=== PATIENT | female | born 1970 | race Caucasian/White ===

== ENCOUNTER 2020-08-17 11:04 | Outpatient (REF) | payer MEDICAID, SELFPAY ==
[2020-08-17 11:25] LABS: COVID-19 Test Negative (Negative)
== END 2020-08-17 11:05 | disposition home or self-care (01) ==
LOC: HO.LAB 11:04
PROVIDERS: Visit Provider Internal Medicine
DX: Z20.828 Contact with and (suspected) exposure to other viral communicable diseases (principal)
CPT/HCPCS: 87635

== ENCOUNTER 2021-02-09 08:01 | Outpatient (REF) | payer MEDICAID, SELFPAY | END 2021-02-09 08:02 | disposition home or self-care (01) | LOC: HO.HOSX 08:01 | PROVIDERS: Visit Provider Physician Assistant | DX: M75.42 Impingement syndrome of left shoulder (principal); M25.512 Pain in left shoulder; D50.9 Iron deficiency anemia, unspecified; E55.9 Vitamin D deficiency, unspecified; J45.909 Unspecified asthma, uncomplicated; F43.10 Post-traumatic stress disorder, unspecified; F31.9 Bipolar disorder, unspecified | CPT/HCPCS: 20610; 99202; J1040 ==

== ENCOUNTER 2021-03-17 08:18 | Outpatient (REF) | payer MEDICAID, SELFPAY ==
--- NOTE | ~2021-03-17 | US_ITS ---
EXAMINATION: US DIAGNOSTIC ULTRASOUND BREAST, LEFT CLINICAL INFORMATION: Left breast pain. COMPARISON: Mammography of same day as well as June 02, 2018. TECHNIQUE: Ultrasound of the breast is performed with real-time de los santos scale imaging and color Doppler. FINDINGS: Targeted ultrasound evaluation does not demonstrate any evidence of abnormal cystic or solid mass. No region of abnormal distal sound shadowing appreciated. Results are provided to the patient at time of visit by the technologist. US/US breast LT limited IMPRESSION: No specific mammographic or ultrasound findings to suggest malignancy. ASSESSMENT: BI-RADS 1: Negative RECOMMENDATION: Routine annual mammography screening due in 12 months. .
--- NOTE | ~2021-03-17 | MM_ITS ---
EXAMINATION: MM DIAGNOSTIC DIGITAL BREAST TOMOSYNTHESIS, bilateral. Targeted left breast ultrasound CLINICAL INFORMATION: Left breast pain The lifetime risk of breast cancer based on the Tyrer-Cuzick Model is 5.3%. COMPARISON: Mammography: June 02, 2018 TECHNIQUE: Digital breast tomosynthesis is performed in both the craniocaudal and mediolateral oblique views along with computer-aided detection (CAD). Synthesized 2D images are generated from the tomosynthesis. Targeted left breast ultrasound FINDINGS: There are scattered areas of fibroglandular density (ACR BI-RADS breast composition Category b). There are no significant masses, abnormal calcifications, or other abnormalities. Targeted ultrasound evaluation does not demonstrate any evidence of abnormal cystic or solid mass. No region of abnormal distal sound shadowing appreciated. Results are provided to the patient at time of visit by the technologist. MM/MM tomosynthesis diagnostic BI IMPRESSION: No specific mammographic or ultrasound findings to suggest malignancy. ASSESSMENT: BI-RADS 1: Negative RECOMMENDATION: Routine annual mammography screening due in 12 months. This patient's information was entered into a reminder system with a target due date for their next mammogram.
== END 2021-03-17 08:19 | disposition home or self-care (01) ==
LOC: HO.MAMMO 08:18
PROVIDERS: PCP Internal Medicine; Visit Provider Internal Medicine
DX: N64.4 Mastodynia (principal)
CPT/HCPCS: 76642; 77062; 77066

== ENCOUNTER → 2021-06-15 15:15 | Outpatient (BNVA) | payer MEDICAID, SELFPAY | PROVIDERS: PCP Internal Medicine; Visit Provider Hospitalist | DX: M54.9 Dorsalgia, unspecified (principal); J40 Bronchitis, not specified as acute or chronic; R91.8 Other nonspecific abnormal finding of lung field; D50.9 Iron deficiency anemia, unspecified; E55.9 Vitamin D deficiency, unspecified; F17.200 Nicotine dependence, unspecified, uncomplicated | CPT/HCPCS: 99212 ==

== ENCOUNTER → 2021-10-19 15:01 | Outpatient (BNVA) | payer MEDICAID, SELFPAY | PROVIDERS: PCP Internal Medicine; Visit Provider Hospitalist | DX: R91.8 Other nonspecific abnormal finding of lung field (principal); M54.9 Dorsalgia, unspecified; F17.200 Nicotine dependence, unspecified, uncomplicated | CPT/HCPCS: 99212 ==

== ENCOUNTER 2022-01-05 13:46 | Outpatient (REF) | payer MEDICAID, SELFPAY ==
--- NOTE | ~2022-01-05 | XR_ITS ---
EXAMINATION: XR HAND, RIGHT CLINICAL INFORMATION: Pain right fingers COMPARISON: Radiographs right hand 01/17/2015 TECHNIQUE: PA, lateral, and oblique views of the right hand. FINDINGS: Bony mineralization is normal. There is slight negative ulnar variance. The pronator quadratus fat pad appears normal. The carpus shows no joint narrowing or erosive change or chondrocalcinosis. The MCP and interphalangeal joints show no focal narrowing or erosive change. No fracture or dislocation. No destructive process. XR/XR hand RT min 3V IMPRESSION: Unremarkable right hand.
== END 2022-01-05 13:47 | disposition home or self-care (01) ==
LOC: HO.XRAY 13:46
PROVIDERS: Absent Provider Internal Medicine; PCP Internal Medicine; Visit Provider Registered Nurse Community Health
DX: M79.644 Pain in right finger(s) (principal)
CPT/HCPCS: 73130

== ENCOUNTER 2022-02-27 08:37 | Outpatient (REF) | payer MEDICAID, SELFPAY ==
--- NOTE | ~2022-02-27 | XR_ITS ---
EXAMINATION: XR HAND, RIGHT CLINICAL INFORMATION: Pain. COMPARISON: Previous x-ray 01/05/2022. TECHNIQUE: PA, lateral, and oblique views of the right hand. FINDINGS: Bone alignment is normal. No fracture or dislocation is seen. There is a small lucency seen in the proximal shaft of the 1st metacarpal bone in the cortex. This measures 2 mm. The joint spaces are normal. The soft tissues are normal. XR/XR hand RT min 3V IMPRESSION: Question small cortically based 2 mm lucency in the proximal shaft of the 1st metacarpal bone. Otherwise unremarkable exam.
== END 2022-02-27 08:38 | disposition home or self-care (01) ==
LOC: HO.HOSX 08:37
PROVIDERS: Visit Provider Orthopaedic Surgery
DX: M65.311 Trigger thumb, right thumb (principal)
CPT/HCPCS: 73130; 99202

== ENCOUNTER 2022-03-19 09:09 | Day surgery (SDC) | payer MEDICAID, SELFPAY ==
--- NOTE | 2022-03-19 09:16 | W.PM.OPN ---
Operative Note Operative Note Date of Service: 03/19/22 Narrative: Operative Note Preop diagnosis: 1. right thumb Trigger finger Postop diagnosis: 1. right thumb Trigger finger Procedure: 1. right thumb A1 siva release Surgeon: Nina Roe MD Anesthesia: local block using 1% lidocaine with epinephrine Findings: No locking or catching after A1 siva release EBL: Less than 5 mL Tourniquet time: None Specimens: None Complications: None Disposition: Brought to recovery room in stable condition Plan: Follow-up for 10-14 days for wound check and suture removal Indications: The patient is 51 years old, with a right thumb trigger finger that has been unresponsive to nonoperative management. The risks and benefits of operative treatment including but not limited to risk of damage to blood vessels, nerves, tendons, infection, persistent pain, persistent symptoms, recurrence or possible need for additional surgery were discussed with the patient and the patient wishes to proceed with surgery. Procedure: Once consent was obtained a local block was performed in the preop area using a combination of 1% lidocaine with epinephrine. The patient was then brought back to the operating suite and placed on the operative table in supine position. A tourniquet was applied to the proximal aspect of the right upper extremity and the limb was prepped and draped in a standard surgical fashion. Once assured that we had a good block, a 1.5 cm oblique incision was made centered over the A1 siva of the right thumb . The incision was made through the skin to the subcutaneous tissues using a #15 blade. Careful dissection was made down to the level of the A1 siva using tenotomy scissors, with care being taken to protect the nearby neurovascular structures. A longitudinal incision was made in the A1 siva 1st using a #15 blade, then using tenotomy scissors under direct visualization. The A1 siva was noted to be thickened. Following our A1 siva release, we no longer saw any locking or catching of the digit with flexion and extension. Once satisfied with our A1 siva release the wound was copiously irrigated with normal saline and hemostasis was obtained with a brief period of local pressure. The skin edges were reapproximated with some 5.0 nylon suture material and a sterile dressing was applied. The patient appears to have tolerated the procedure well and with no complications. All digits were well vascularized at the conclusion of the case.
[2022-03-19 10:05] VITALS: BP 131/78; PULSE 71; RESP 18; TEMP 36.4; O2SAT 98; BMI 27.4
--- NOTE | 2022-03-19 11:39 | MHC.SHP ---
Pre-Procedural Eval Section A Date of Service: 03/19/22 The patient is an INPATIENT: No Changes since office visit: No Cold of Flu in the past 2 weeks, No New Medical Problems, No Changes in Medication and No Patient answered all questions The History & Physical has been completed within 30 days and I have reviewed it.: Yes Section B Chief Complaint: Trigger thumb, right thumb Allergies: Allergies Allergy/AdvReac Type Severity Reaction Status Date / Time No Known Allergies Allergy Verified 02/27/22 13:45 [No Known Allergies*] Plan I have reviewed the history and physical and performed a pertinent physical examination on my patient. No changes have occurred unless specified.
[2022-03-19 11:40] VITALS: BP 125/69; PULSE 80; RESP 19; TEMP 36.7; O2SAT 99
== END 2022-03-19 11:40 | disposition home or self-care (01) ==
PROVIDERS: PCP Internal Medicine; Visit Provider Orthopaedic Surgery
PROC: (CPT 26055; principal; 2022-03-19 10:30)
DX: M65.311 Trigger thumb, right thumb (principal); J45.909 Unspecified asthma, uncomplicated; D50.9 Iron deficiency anemia, unspecified; E55.9 Vitamin D deficiency, unspecified; F43.10 Post-traumatic stress disorder, unspecified; F31.9 Bipolar disorder, unspecified; R91.8 Other nonspecific abnormal finding of lung field; Z79.899 Other long term (current) drug therapy; F17.210 Nicotine dependence, cigarettes, uncomplicated
CPT/HCPCS: 26055; J0171

== ENCOUNTER → 2022-04-03 10:02 | Outpatient (BNVA) | payer MEDICAID, SELFPAY | PROVIDERS: Visit Provider Orthopaedic Surgery | DX: M65.311 Trigger thumb, right thumb (principal) | CPT/HCPCS: 99212 ==

== ENCOUNTER → 2022-04-19 15:11 | Outpatient (BNVA) | payer MEDICAID, SELFPAY | PROVIDERS: PCP Internal Medicine; Visit Provider Hospitalist | DX: R91.8 Other nonspecific abnormal finding of lung field (principal); M54.9 Dorsalgia, unspecified; F17.210 Nicotine dependence, cigarettes, uncomplicated | CPT/HCPCS: 99212 ==

== ENCOUNTER → 2022-04-27 09:48 | Outpatient (REF) | payer MEDICAID, SELFPAY | LOC: HO.CARD 09:48 | PROVIDERS: PCP Internal Medicine; Visit Provider Nurse Practitioner Psychiatric/Mental Health | DX: Z13.89 Encounter for screening for other disorder (principal) ==

== ENCOUNTER 2022-05-18 09:31 | Outpatient (REF) | payer MEDICAID, SELFPAY ==
[2022-05-18 09:47] LABS: MANUAL DIFF FLAG NO
[2022-05-18 10:45] LABS: Basophils Percent Auto 0.8 % (0-2); Eosinophils Absolute Auto 0.1 X10*3/uL (0.0-0.4); Eosinophils Percent Auto 2.4 % (0-4); Hematocrit 38.4 % (37.0-47.0); Hemoglobin 12.7 g/dl (12.0-16.0); Imm Gran Abs Auto 0.02 X10*3/uL (0.00-0.03); Imm Gran Pct Auto 0.4 % (0.0-0.4); Lymphocytes Absolute Auto 1.7 X10*3/uL (1.2-4.9); Lymphocytes Percent Auto 31.4 % (20-40); Mean Corpuscular HGB Conc 33.1 g/dl (31.0-35.0); Mean Corpuscular Hemoglobin 28.8 pg (27.0-33.0); Mean Corpuscular Volume 87.1 fL (80.0-98.0); Mean Platelet Volume 9.8 fL (9.4-12.3); Monocytes Absolute Auto 0.5 X10*3/uL (0.1-1.2); Neutrophils Absolute Auto 2.9 x10*3/uL (2.0-8.3); Platelet Count 281 X10*3/uL (160-400); Red Blood Count 4.41 X10*6/uL (4.20-5.50); Red Cell Distribution Width 13.3 % (11.0-16.0); White Blood Count 5.3 X10*3/uL (4.8-10.8)
[2022-05-18 11:25] LABS: Erythrocyte Sedimentation Rate 12 MM/HR (0-20)
[2022-05-21 14:32] LABS: Alpha 1 Anti-trypsin 111 mg/dL (83-199)
[2022-05-21 16:41] LABS: Cyclic Citrullinated Peptide <16 UNITS
[2022-05-22 11:47] LABS: Anti Nuclear Antibody Screen NEGATIVE (NEGATIVE)
== END 2022-05-18 09:32 | disposition home or self-care (01) ==
LOC: HO.LAB 09:31
PROVIDERS: PCP Internal Medicine; Visit Provider Hospitalist
DX: R91.8 Other nonspecific abnormal finding of lung field (principal)
CPT/HCPCS: 36415; 82103; 85025; 85652; 86038; 86039; 86200

== ENCOUNTER → 2022-07-03 14:33 | Outpatient (BNVA) | payer MEDICAID, SELFPAY | PROVIDERS: PCP Internal Medicine; Visit Provider Orthopaedic Surgery | DX: M65.312 Trigger thumb, left thumb (principal); R20.0 Anesthesia of skin; R20.2 Paresthesia of skin | CPT/HCPCS: 99212 ==

== ENCOUNTER 2022-07-26 07:03 | Day surgery (SDC) | payer MEDICAID, SELFPAY ==
[2022-07-19 13:28] VITALS: BMI 27.9
--- NOTE | 2022-07-26 10:41 | MHC.SHP ---
Pre-Procedural Eval Section A Date of Service: 07/26/22 The patient is an INPATIENT: No Changes since office visit: No Cold of Flu in the past 2 weeks, No New Medical Problems, No Changes in Medication and No Patient answered all questions The History & Physical has been completed within 30 days and I have reviewed it.: Yes Section B Chief Complaint: trigger thumb Allergies: Allergies Allergy/AdvReac Type Severity Reaction Status Date / Time No Known Allergies Allergy Verified 07/03/22 14:48 [No Known Allergies*] Plan I have reviewed the history and physical and performed a pertinent physical examination on my patient. No changes have occurred unless specified.
--- NOTE | 2022-07-26 10:42 | W.PM.OPN ---
Operative Note Operative Note Date of Service: 07/26/22 Narrative: Operative Note Preop diagnosis: 1. Left thumb Trigger finger Postop diagnosis: 1. left thumb Trigger finger Procedure: 1. left thumb A1 siva release Surgeon: Nina Roe MD Anesthesia: local block using 1% lidocaine with epinephrine Findings: No locking or catching after A1 siva release EBL: Less than 5 mL Tourniquet time: None Specimens: None Complications: None Disposition: Brought to recovery room in stable condition Plan: Follow-up for 10-14 days for wound check and suture removal Indications: The patient is 52 years old, with a left trigger thumb that has been unresponsive to nonoperative management. The risks and benefits of operative treatment including but not limited to risk of damage to blood vessels, nerves, tendons, infection, persistent pain, persistent symptoms, recurrence or possible need for additional surgery were discussed with the patient and the patient wishes to proceed with surgery. Procedure: Once consent was obtained a local block was performed in the preop area using a combination of 1% lidocaine with epinephrine. The patient was then brought back to the operating suite and placed on the operative table in supine position. A tourniquet was applied to the proximal aspect of the left upper extremity and the limb was prepped and draped in a standard surgical fashion. Once assured that we had a good block, a 1.5 cm oblique incision was made centered over the A1 siva of the left thumb . The incision was made through the skin to the subcutaneous tissues using a #15 blade. Careful dissection was made down to the level of the A1 siva using tenotomy scissors, with care being taken to protect the nearby neurovascular structures. A longitudinal incision was made in the A1 siva 1st using a #15 blade, then using tenotomy scissors under direct visualization. The A1 siva was noted to be thickened. Following our A1 siva release, we no longer saw any locking or catching of the digit with flexion and extension. Once satisfied with our A1 siva release the wound was copiously irrigated with normal saline and hemostasis was obtained with a brief period of local pressure. The skin edges were reapproximated with some 5.0 nylon suture material and a sterile dressing was applied. The patient appears to have tolerated the procedure well and with no complications. All digits were well vascularized at the conclusion of the case.
[2022-07-26 10:43] VITALS: BP 153/63; PULSE 75; RESP 18; TEMP 36.5
== END 2022-07-26 10:44 | disposition home or self-care (01) ==
PROVIDERS: PCP Internal Medicine; Visit Provider Orthopaedic Surgery
PROC: (CPT 26055; principal; 2022-07-26 13:10)
DX: M65.312 Trigger thumb, left thumb (principal); R20.0 Anesthesia of skin; R20.2 Paresthesia of skin; J45.909 Unspecified asthma, uncomplicated; D50.9 Iron deficiency anemia, unspecified; R91.8 Other nonspecific abnormal finding of lung field; F31.9 Bipolar disorder, unspecified; F43.10 Post-traumatic stress disorder, unspecified; F17.210 Nicotine dependence, cigarettes, uncomplicated
CPT/HCPCS: 26055; J0171

== ENCOUNTER 2022-09-11 12:47 | Outpatient (REF) | payer MEDICAID, SELFPAY ==
--- NOTE | ~2022-09-11 | MM_ITS ---
EXAMINATION: MM SCREENING DIGITAL BREAST TOMOSYNTHESIS, BILATERAL CLINICAL INFORMATION: Screening. Asymptomatic. COMPARISON: Mammography: March 17, 2021 and June 02, 2018 TECHNIQUE: Digital breast tomosynthesis is performed in both the craniocaudal and mediolateral oblique views along with computer-aided detection (CAD). Synthesized 2D images are generated from the tomosynthesis. FINDINGS: There are scattered areas of fibroglandular density (ACR BI-RADS breast composition Category b). There are no significant masses, abnormal calcifications, or other abnormalities. MM/MM tomosynthesis screening BI IMPRESSION: No significant changes from prior exam. ASSESSMENT: BI-RADS 1: Negative RECOMMENDATION: Routine annual mammography screening. This patient's information was entered into a reminder system with a target due date for their next mammogram.
== END 2022-09-11 12:48 | disposition home or self-care (01) ==
LOC: HO.MAMMO 12:47
PROVIDERS: PCP Internal Medicine; Visit Provider Internal Medicine
DX: Z12.31 Encounter for screening mammogram for malignant neoplasm of breast (principal)
CPT/HCPCS: 77063; 77067

== ENCOUNTER 2022-09-12 14:45 | Outpatient (REF) | payer MEDICAID, SELFPAY ==
--- NOTE | 2022-09-12 10:15 | EMG_ITS ---
Please see scanned EMG / Nerve Conduction Report. MTDD
== END 2022-09-12 14:46 | disposition home or self-care (01) ==
LOC: HO.NEURO 14:45
PROVIDERS: PCP Internal Medicine; Visit Provider Orthopaedic Surgery
DX: R20.2 Paresthesia of skin (principal); R20.0 Anesthesia of skin; G56.01 Carpal tunnel syndrome, right upper limb
CPT/HCPCS: 95885; 95913

== ENCOUNTER → 2022-11-19 13:05 | Outpatient (BNVA) | payer MEDICAID, SELFPAY | PROVIDERS: PCP Registered Nurse; Visit Provider Hospitalist | DX: Z23 Encounter for immunization (principal); R91.8 Other nonspecific abnormal finding of lung field; F17.210 Nicotine dependence, cigarettes, uncomplicated | CPT/HCPCS: 90471; 90677; 99212 ==

== ENCOUNTER → 2022-12-04 12:55 | Outpatient (BNVA) | payer MEDICAID, SELFPAY | PROVIDERS: PCP Registered Nurse; Visit Provider Physician Assistant | DX: Z13.89 Encounter for screening for other disorder (principal) ==

== ENCOUNTER → 2022-12-21 12:44 | Outpatient (REF) | payer MEDICAID, SELFPAY | LOC: HO.SL 12:44 | PROVIDERS: PCP Registered Nurse; Visit Provider Registered Nurse | DX: G47.33 Obstructive sleep apnea (adult) (pediatric) (principal) | CPT/HCPCS: 95806 ==

== ENCOUNTER 2023-01-10 10:28 | Day surgery (SDC) | payer MEDICAID, SELFPAY ==
--- NOTE | 2023-01-10 07:59 | W.PM.OPN ---
Operative Note Operative Note Date of Service: 01/10/23 Narrative: Preop diagnosis: 1. Right Carpal tunnel syndrome Postop diagnosis: same Procedure: 1. Right Carpal tunnel release Surgeon: Nina Roe MD Anesthesia: local block using 1% lidocaine with epinephrine Findings: Thickened transverse carpal ligament. EBL: Less than 5 mL Specimens: None Complications: None Disposition: Brought to recovery room in stable condition Plan: Follow-up for 10-14 days for wound check and suture removal Indications: The patient is 52 years old, with right carpal tunnel syndrome that has been unresponsive to nonoperative management. The risks and benefits of operative treatment including but not limited to risk of damage to blood vessels, nerves, tendons, infection, persistent pain, persistent symptoms, or possible need for additional surgery were discussed with the patient and the patient wishes to proceed with surgery. Procedure: Once consent was obtained a local block was performed using a combination of 1% lidocaine with epinephrine. The patient was then brought back to the operating suite and placed on the operative table in supine position. The right upper extremity was prepped and draped in a standard surgical fashion. Once assured that we had a good block, a 2.0 cm longitudinal incision was made centered over the carpal tunnel. The incision was made through the skin to the subcutaneous tissues using a #15 blade. Dissection was made down to the level of the transverse carpal ligament with care being taken to protect the palmar cutaneous nerve. Once the transverse carpal ligament was clearly visualized, a longitudinal incision was made in the transverse carpal ligament 1st using a #15 blade, then using tenotomy scissors under direct visualization. Care was taken to look for and protect the motor branch of the median nerve when seen in this area. Once satisfied with our carpal tunnel release the wound was copiously irrigated with normal saline and hemostasis was obtained with a brief period of local pressure. The skin edges were reapproximated with some 5.0 nylon suture material and a sterile dressing was applied. The patient appears to have tolerated the procedure well and with no complications. All digits were well vascularized at the conclusion of the case.
[2023-01-10 12:43] VITALS: BMI 28.5
[2023-01-10 14:33] VITALS: BP 112/70; PULSE 69; O2SAT 97
== END 2023-01-10 14:57 | disposition home or self-care (01) ==
PROVIDERS: PCP Registered Nurse; Visit Provider Orthopaedic Surgery
PROC: (CPT 64721; principal; 2023-01-10 11:50)
DX: G56.01 Carpal tunnel syndrome, right upper limb (principal); R20.0 Anesthesia of skin; R20.2 Paresthesia of skin; J45.909 Unspecified asthma, uncomplicated; D50.9 Iron deficiency anemia, unspecified; R91.8 Other nonspecific abnormal finding of lung field; E55.9 Vitamin D deficiency, unspecified; F31.9 Bipolar disorder, unspecified; F43.11 Post-traumatic stress disorder, acute; Z87.891 Personal history of nicotine dependence
CPT/HCPCS: 64721; J0171

== ENCOUNTER → 2023-01-23 13:54 | Outpatient (BNVA) | payer MEDICAID, SELFPAY | PROVIDERS: PCP Registered Nurse; Visit Provider Orthopaedic Surgery ==

== ENCOUNTER 2023-02-08 13:00 | Outpatient (RCR) | payer MEDICAID, SELFPAY ==
--- NOTE | 2023-02-04 16:16 | MHC.PT.EP ---
[facility] [place] Office [place] [facility] [place] Office [address] Jigar Genao [address] [phone] F: [phone] F: [phone] F: [phone] F: [phone] Physical Therapy Plan of Care Date of Evaluation: Date of Surgery: Diagnosis: low back pain (MD Dx) lumbar radiculopathy L, L sided sciatica(PT Dx) Assessment: Patient is a 52 y.o. female who is referred to PT by REMY Emmanuel, with Dx of low back pain. PT diagnosis is LEFT lumbar radiculopathy and LEFT sided sciatica. Patient impairments include pain, antalgic gait, limited ROM, weakness. Patient current functional limitations are difficulty getting up/down floor to play with grandkids, prolonged walking, prolonged sitting, she uses stairs one at a time, bending, sleeping, difficulty with ADLs, uses [employer] for cooking, cleaning, dressing. Can shower independently but uses shower chair. Patient will benefit from skilled PT to address aforementioned impairments and functional limitations to meet established goals. Frequency and Duration: The patient will be seen 2x/week for 4 weeks Short Term Goals: 2 weeks Patient demonstrates consistency and independence with HEP to self manage symptoms. Patient presents lumbar neutral without lateral shift or slouched posture in sitting to reduce pain level 4/10. Care Home Goals: 4 weeks Patient presents with incrased L hip glut med strength 4+/5 to be able to ambulate long distances without cane. Patient presents with increased lumbar flexion AROM 90 degrees to be able to bend/squat to care for grandchildren. Treatment Plan: Modalities to reduce pain, spasms and effusion. Manual therapy to restore motion and function. Therapeutic exercise to improve strength and flexibility. Neuromuscular re-education for posture and balance. Therapeutic activities to return to functional activities of daily living. Electronically signed by: Massiel Mejia, PT, DPT Please sign and return to therapist. Thank you for your referral.
--- NOTE | 2023-03-13 10:42 | MHC.PT.DC ---
[facility] [place] Office [place] Office [place] Office [address] Jigar Genao [address] [phone] F: [phone] F: [phone] F: [phone] F: [phone] Physical Therapy Discharge Report Diagnosis: low back pain (MD Dx) lumbar radiculopathy L, L sided sciatica(PT Dx) Date of Surgery: Date of Evaluation: 02/04/23 Date of Discharge: 02/08/23 Treatments to Date: 2 Cancellations to Date: 3 No Shows to Date: Discharge Status: Discharge Summary: Pt ceased attending PT on her own accord after PT visit on 02/08/23. She only had 2 visits of PT. Difficulty determining effectiveness of PT at this time due to limited visits. Electronically signed by: Massiel Mejia, PT, DPT Please sign and return to therapist. Thank you for your referral.
== END 2023-03-13 10:42 | disposition home or self-care (01) ==
LOC: HO.PT 13:00
PROVIDERS: PCP Registered Nurse; Visit Provider Registered Nurse
DX: M54.50 Low back pain, unspecified (principal)
CPT/HCPCS: 97110; 97140; 97161

== ENCOUNTER 2023-06-28 13:41 | Outpatient (REF) | payer MEDICAID, SELFPAY ==
[2023-06-28 19:21] LABS: TSH reflex Free T4 0.24 uIU/mL (0.32-4.0)
[2023-06-28 19:58] LABS: Free T4 (Free Thyroxine) 1.01 ng/dL (0.71-1.85)
[2023-06-29 03:09] LABS: Estimated Average Glucose 123 mg/dL; Hemoglobin A1c % 5.9 % (<6.0)
[2023-07-01 13:07] LABS: Thyroid Peroxidase Antibodies 1 IU/mL (<9)
== END 2023-06-28 13:42 | disposition home or self-care (01) ==
LOC: HO.HHCL 13:41
PROVIDERS: Visit Provider Registered Nurse
DX: R35.89 Other polyuria (principal); R79.89 Other specified abnormal findings of blood chemistry
CPT/HCPCS: 36415; 83036; 84439; 84443; 86376

== ENCOUNTER 2023-09-17 11:50 | Outpatient (REF) | payer MEDICAID, SELFPAY | END 2023-09-17 11:51 | disposition home or self-care (01) | LOC: HO.MAMMO 11:50 | PROVIDERS: PCP Registered Nurse; Visit Provider Registered Nurse | DX: Z12.31 Encounter for screening mammogram for malignant neoplasm of breast (principal) | CPT/HCPCS: 77063; 77067 ==

== ENCOUNTER → 2023-09-17 12:30 | Outpatient (BNV) | payer MEDICAID, SELFPAY | PROVIDERS: PCP Registered Nurse; Visit Provider Radiology Diagnostic Radiology | DX: Z12.31 Encounter for screening mammogram for malignant neoplasm of breast (principal) | CPT/HCPCS: 77063; 77067 ==

== ENCOUNTER 2023-11-14 14:52 | Outpatient (AMB) | payer MEDICAID, SELFPAY ==
[2023-11-14 15:16] VITALS: PULSE 77; O2SAT 96; BMI 24.9
--- NOTE | 2023-11-14 15:16 | MHC.OFFVIS ---
Intake Vital Signs 11/14/23 15:16 Height 5 ft 4 in Weight 145 lb BMI 24.9 Pulse 77 Pulse Source Pulse Oximeter Pulse Oximetry (%) 96 Oxygen Delivery Method Room Air Intake Visit Reasons: ct results Allergies No Known Allergies [No Known Allergies*] Allergy (Verified 11/14/23 15:18) HPI HPI Comments History of Present Illness Details The patient is a 53-year-old woman with a known history of tobacco dependency, asthma who apparently was in her usual state health until recently she started developing a upper respiratory illness. The patient subsequently had a worsening cough and also complaint of chest and back discomfort. Denies any pleuritic component. She was evaluated and [facility]. There she had a chest x-ray without any acute disease. Subsequently she did follow-up with primary care doctor. She was found to have normal lung findings and she was referred to a CT scan of the chest. I personally viewed the CT scan with the patient. She does have some nodular densities noted in the upper lung zones and also has a pulmonary nodule measuring 4-5 mm in the left lower lobe lung area. The patient does smoke cigarettes and therefore she is high risk for malignancy. She actually qualifies for the lung cancer screening program that will be helpful for her once we confirm that this her stable nodular densities. In the meantime she continues to have the chest discomfort. At this point is appears that is not pleuritic in no sure most likely more to be musculoskeletal. Based on the CT scan nothing significant to explain the degree of discomfort that she has good she was provided with ibuprofen for the pain. I did offer her additional anti-inflammatory such as a course of prednisone and she can also consider Lidoderm patch to the area. 10/19/2021 the patient is here for a pulmonary follow-up visit. The patient continues to have significant right-sided back discomfort. Although it is reproducible. She is concerned because feels is related to the findings on the CT scan. I did try to reassure her that it appears that her back discomfort appears to be more musculoskeletal and the changes on her CT scan are primarily in the upper lung zones and not where she is having discomfort. She did recently have a CT scan of the chest that was repeated and was compared to the CT scan she had in the summer 2020. It appears that the nodular densities stable although an area of does measure about a cm in size. Therefore is not on reasonable to check it again in 6 months and then after will be a good candidate for the lung cancer screening program. The patient did try the Nicotrol inhaler which appears to be helpful cutting down although she is still smoking. the patient does have a rescue inhaler that she can use as needed. Will follow up in 6 months after her next CT scan. 04/19/2022 the patient is here for a pulmonary follow-up visit. She continues to have her back and neck discomfort. She also has intermittent chest discomfort. It is reproducible. Appears to be more musculoskeletal. The patient did have a repeat CT scan of the chest demonstrating stable pulmonary nodules in addition to a ground-glass nodular density. The patient is very concerned about the nodular densities. in the meantime she continues smoking cigarettes. She has been able to cut down to 1 cigarette a day. Explained to the patient that she needs to stop completely. She also has been complaining reflux disease and heartburn. We did talk about the reflux diet. She had been taking Prilosec in the past but she is no longer taking it. Also her a prescription for her to restart the medicine specially with her chest discomfort. Will plan to follow-up in 6 months with a repeat CT scan. If any worsening symptoms she is to call for an earlier evaluation. 11/19/2022 the patient is here for a pulmonary follow-up visit. The patient complains of cough. Typically productive in nature. Worse in the morning. Is likely a smoker's cough. The patient still struggling with smoking. We did try multiple nicotine products including the Nicotrol inhaler and also tried the patch. Will go ahead and send her some neck rate gum with hopes that she can not take ago when she is having a craving. She knows not to take any other nicotine products while using the down. In the meantime the patient did have a CT scan of the chest personally by me. Patient does have pulmonary nodules some that are ground-glass in some better solid in nature. They have not changed when compared to her previous CT scan. She also had some areas of ground-glass opacity which could be a degree of interstitial lung disease from smoking. The patient understands that the inflammation can get worse if she continues to smoke cigarettes. The patient had been doing Advair. However, she does not like the powder. Does not agree with her. Therefore will switch over to Symbicort that she can use instead. 11/14/2023 the patient is here for pulmonary follow-up visit. The patient overall has been doing about the same. She is still smoking unfortunately. She states she gets bored and she starts smoking and she also gets anxious and starts smoking. We did talk about different alternatives she can consider. She will look into them. In the meantime the patient did have a CT scan of the chest that was personally by me. It appears that she still has a ground-glass nodular density measurement 1.1 cm in size. We did evaluated together and looked at the images and it is indeed irregular. In the size is in the intermediate size. It was measured before 1.1 x 1.0 cm in his measuring now 1.1 x 1.1 cm which she is slight change. Therefore, will plan to repeat the CT scan in a year's time. She continues use her respiratory therapy with good effect. The patient was also diagnosed sleep apnea she was given a CPAP. I was able to download the data she has not been using it because she feels the pressures are too high. I was able to adjust her pressures from 4-16 to 48 to see if this is effective for her in order for her to be able to tolerated. She will bring her CPAP to the next visit in 4-6 months. 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 Review of Systems Const Reports daytime sleepiness, Reports difficulty sleeping and Denies night sweats ENT Denies change in voice, Denies lip swelling, Denies mouth pain, Reports nasal congestion, Reports nasal discharge, Reports neck pain and Denies tongue swelling Card Denies chest pain Resp Reports chest congestion, Reports cough and Denies hemoptysis GI Denies abdominal pain Musc Reports back pain, Reports myalgias and Reports neck pain Neuro Denies Neuro-related abnormal movements Psych Denies no additional complaints Joshua/Lymph Denies easy bleeding and Denies lymphadenopathy Aller/Immun Denies lip swelling and Denies tongue swelling Physical Exam Vital Signs: Last Vital Signs Pulse 77 11/14/23 15:16 Pulse Ox 96 11/14/23 15:16 Oxygen Delivery Method Room Air 11/14/23 15:16 BMI result Body Mass Index 24.9 Const General: alert HEENT General nose exam: Abnormal external nose present and Nasal discharge present Eyes Pupils: Equal, round and reactive pupils present Neck Neck: Yes normal visual inspection, Yes full ROM and Yes no lymphadenopathy Chest Chest palpation & inspection: normal inspection of the chest Resp Auscultation: no crackles, no rales, no rhonchi, no wheezes and diminished lung sounds Cardio Rate: regular rate Rhythm: regular rhythm Heart sounds: S1 normal heart sound present and S2 normal heart sound present GI Palpation (GI): Soft to palpation and nontender Auscultation: normal bowel sounds Back/Spine/Pelvis Back: back tenderness Thoracic/Lumbar Spine: paraspinal muscle tenderness Skin General skin exam: rashes and/or lesions noted Neuro Cranial nerves: Yes Equal, round and reactive pupils present Assessment & Plan Assessment & Plan (1) Pulmonary nodules: Code(s): R91.8 - Other nonspecific abnormal finding of lung field (2) Tobacco dependence: Code(s): F17.200 - Nicotine dependence, unspecified, uncomplicated (3) GARETT on CPAP: Code(s): G47.33 - Obstructive sleep apnea (adult) (pediatric) Plan JOJO as needed continue Symbicort BID nicorette gum for tobacco cessation adjusted APAP 6-16 ramp 4 to APAP 4-8 ramp 4. Requesting F30 mask repeat CT scan of the chest in 1 year F/U 4-6 months Orders: Orders CT chest wo IV con 364 Days R91.8 - Other nonspecific abnormal finding of lung field Quality Reporting (2019) Adult ([facility] 138/12/26/68) Smoking risk assessment performed?: Yes Patient Tobacco Use Status: Former Tobacco user Coding Level of Care Code Est Pt Level 4 (52006) Diagnoses Pulmonary nodules R91.8 Tobacco dependence F17.200 GARETT on CPAP G47.33 Time Spent (min) 17
== END 2023-11-14 15:44 | disposition home or self-care (01) ==
PROVIDERS: PCP Registered Nurse; Referring Provider Registered Nurse; Visit Provider Hospitalist
DX: R91.8 Other nonspecific abnormal finding of lung field (principal); F17.200 Nicotine dependence, unspecified, uncomplicated; G47.33 Obstructive sleep apnea (adult) (pediatric)
CPT/HCPCS: 99214

== ENCOUNTER → 2023-11-14 14:52 | Outpatient (BNVA) | payer MEDICAID, SELFPAY | PROVIDERS: PCP Registered Nurse; Visit Provider Hospitalist | DX: R91.8 Other nonspecific abnormal finding of lung field (principal); G47.33 Obstructive sleep apnea (adult) (pediatric); Z87.891 Personal history of nicotine dependence | CPT/HCPCS: 99212 ==

== ENCOUNTER 2024-08-28 14:26 | Outpatient (REF) | payer MEDICAID, SELFPAY ==
[2024-08-28 17:21] LABS: MANUAL DIFF FLAG NO
[2024-08-28 17:30] LABS: Basophils Absolute Auto 0.1 X10*3/uL (0.0-0.2); Eosinophils Absolute Auto 0.1 X10*3/uL (0.0-0.4); Eosinophils Percent Auto 2.2 % (0-4); Hematocrit 38.4 % (37.0-47.0); Hemoglobin 12.6 g/dl (12.0-16.0); Imm Gran Abs Auto 0.02 X10*3/uL (0.00-0.03); Imm Gran Pct Auto 0.3 % (0.0-0.4); Lymphocytes Absolute Auto 2.1 X10*3/uL (1.2-4.9); Lymphocytes Percent Auto 34.6 % (20-40); Mean Corpuscular HGB Conc 32.8 g/dl (31.0-35.0); Mean Corpuscular Hemoglobin 28.9 pg (27.0-33.0); Mean Corpuscular Volume 88.1 fL (80.0-98.0); Mean Platelet Volume 9.7 fL (9.4-12.3); Monocytes Absolute Auto 0.5 X10*3/uL (0.1-1.2); Monocytes Percent Auto 7.7 % (2-11); Neutrophils Absolute Auto 3.2 x10*3/uL (2.0-8.3); Neutrophils Percent Auto 54.2 % (45-73); Platelet Count 308 X10*3/uL (160-400); Red Blood Count 4.36 X10*6/uL (4.20-5.50); Red Cell Distribution Width 13.5 % (11.0-16.0)
[2024-08-28 17:41] LABS: Estimated Average Glucose 128 mg/dL; Hemoglobin A1C 142.3969 umol/L; Hemoglobin A1c % 6.1 % (<6.0)
[2024-08-28 17:47] LABS: Microalbum/Creatinine Ratio Ur 12.1 ug/mg cr (<30)
[2024-08-28 18:00] LABS: Alanine Aminotransferase 26 U/L (0-31); Albumin Level 4.4 g/dL (3.5-5.0); Alkaline Phosphatase 84 U/L (39-117); Anion Gap 11 (12-20); Aspartate Amino Transferase 52 U/L (5-31); Bilirubin Total 0.3 mg/dL (0.0-1.0); Blood Urea Nitrogen 21 mg/dL (9-16); Calcium 9.7 mg/dL (8.4-10.2); Carbon Dioxide 29 mmol/L (22-29); Chloride 104 mmol/L (96-108); Cholesterol 213 mg/dL (<200); Estimated Glomerular Filt Rate > 60; Glucose Random 131 mg/dL (60-115); HDL Cholesterol 38 mg/dL (>40); LDL Cholesterol Calculated 102 mg/dL (<100); Sodium 141 mmol/L (135-145); Total Protein 7.4 g/dL (6.5-8.0); Triglycerides 366 mg/dL (<150)
[2024-08-28 18:03] LABS: TSH reflex Free T4 0.43 uIU/mL (0.32-4.0)
[2024-08-28 18:42] LABS: Potassium 2.8 mmol/L (3.3-5.1)
== END 2024-08-28 14:27 | disposition home or self-care (01) ==
LOC: HO.CHCLDS 14:26
PROVIDERS: Visit Provider Registered Nurse
DX: Z00.00 Encounter for general adult medical examination without abnormal findings (principal)
CPT/HCPCS: 36415; 80053; 80061; 82043; 82570; 83036; 84443; 85025

== ENCOUNTER 2024-09-03 13:49 | Outpatient (REF) | payer MEDICAID, SELFPAY ==
[2024-09-03 15:02] LABS: Anion Gap 13 (12-20); Blood Urea Nitrogen 22 mg/dL (9-16); Carbon Dioxide 30 mmol/L (22-29); Chloride 101 mmol/L (96-108); Estimated Glomerular Filt Rate > 60; Glucose Random 113 mg/dL (60-115); Magnesium 2.2 mg/dL (1.6-2.6); Potassium 3.3 mmol/L (3.3-5.1); Sodium 141 mmol/L (135-145)
== END 2024-09-03 13:50 | disposition home or self-care (01) ==
LOC: HO.CHCLDS 13:49
PROVIDERS: Visit Provider Registered Nurse
DX: E87.6 Hypokalemia (principal)
CPT/HCPCS: 36415; 80048; 83735

== ENCOUNTER 2024-09-22 11:25 | Outpatient (REF) | payer MEDICAID, SELFPAY ==
--- NOTE | ~2024-09-22 | MM_ITS ---
EXAMINATION: MM SCREENING DIGITAL BREAST TOMOSYNTHESIS, BILATERAL CLINICAL INFORMATION: Screening. Asymptomatic. COMPARISON: Mammography: Comparison is made with available priors TECHNIQUE: Digital breast mammography with tomosynthesis is performed in both the craniocaudal and mediolateral oblique views along with computer-aided detection (CAD). FINDINGS: There are scattered areas of fibroglandular density (ACR BI-RADS breast composition Category b). There are no significant masses, abnormal calcifications, or other abnormalities. MM/MM tomosynthesis screening BI IMPRESSION: No mammographic evidence of malignancy. ASSESSMENT: BI-RADS BI-RADS 1 - Negative RECOMMENDATION: Routine annual mammography screening. 1 year F/U This examination should not preclude the clinical evaluation of a suspicious palpable abnormality. This patient's information was entered into a reminder system with a target due date for their next mammogram. Electronically signed by: Dasia Hull DO 09/30/2024 08:17 AM [facility]
== END 2024-09-22 11:26 | disposition home or self-care (01) ==
LOC: HO.MAMMO 11:25
PROVIDERS: PCP Registered Nurse; Visit Provider Registered Nurse
DX: Z12.31 Encounter for screening mammogram for malignant neoplasm of breast (principal)
CPT/HCPCS: 77063; 77067

== ENCOUNTER → 2024-09-22 12:00 | Outpatient (BNV) | payer MEDICAID, SELFPAY | PROVIDERS: PCP Registered Nurse; Visit Provider Internal Medicine | DX: Z12.31 Encounter for screening mammogram for malignant neoplasm of breast (principal) | CPT/HCPCS: 77063; 77067 ==

== ENCOUNTER 2024-11-25 14:59 | Outpatient (REF) | payer MEDICAID, SELFPAY ==
--- NOTE | ~2024-11-25 | CT_ITS ---
CLINICAL HISTORY: R91.8 - Other nonspecific abnormal finding of lung field CT chest without contrast Comparison: None Findings: The heart is normal size. The visualized thyroid and mediastinum are unremarkable. No consolidation or effusion. The visualized upper abdomen is unremarkable. No acute fractures. IMPRESSION: 1. Unremarkable chest CT. This document has been electronically signed by: Jluis Chadwick MD on 11/27/2024 08:04:51
--- OUTSIDE RECORDS SUMMARY | 2024-11-25 17:29 | XMS_ITS | Encounter Summary ---
Author Organization [employer] Address [address] [address] [facility] [address] [place] [address] Care Team Providers Care Security Police Officer Name Role Phone Marguerite Kaba REMY Primary Care Provider [phone] Encounter Details Date Type Department Care Team (Latest Contact Info) Description 11/19/2024 Travel Social History Tobacco Use Types Packs/Day Years Used Date Smoking Tobacco: Former Cigarettes Smokeless Tobacco: Never Alcohol Use Standard Drinks/Week Comments Never 0 (1 standard drink = 0.6 oz pur e alcohol) Depression Answer Date Recorded Patient Health Questionnaire-9 Score 17 03/09/2024 Patient Health Questionnaire-9 Score 17 03/09/2024 Last PHQ-9: Questionnaire Data Not on file 0 03/09/2024 Housing Stability Answer Date Recorded What is your housing situation today? I have madeleine moreira 09/04/[address] you li ve. Do you have problems with any of the following? None of the above 09/04/2023 Food Insecurity Answer Date Recorded Within the past 12 months, y ou worried that your food would run out before you got money to buy more: Never True 09/04/2023 Within the past 12 months,th e food you bought just didn't last and you didn't have enough money to get more: Never True 11/2022 Transportation Answer Date Recorded In the past 12 months, has l ack of transportation kept you from medical appts, meetings, work or from getting things needed for daily living? No 09/04/2023 Utilities Answer Date Recorded In the past 12 months, has t he electric, gas, oil or water company threatened to shut off services in your home? No 09/04/2023 Depression Answer Date Recorded Patient Health Questionnaire-2 Score 5 03/09/2024 Comments No Sex and Gender Information Value Date Recorded Sex Assigned at Female 09/03/2022 10:15 AM EDT Legal Sex Female 10:15 AM EDT Gender Identity Female 09/03/2022 10:15 AM EDT Sexual Orientation Choose not to disclose 2021 10:15 AM EDT documented as of this encounter Plan of Treatment Upcoming Encounters Date Type Department Care Team (Late st Contact Info) Description 12/14/2024 11:15 AM EST Office Visit [facility] MED [facility] PEDS [address] [place] [address] Marguerite Kaba FNP [address] [place] [address] documented as of this encounter Visit Diagnoses Not on filedocumented in this encounter Additional Health Concerns Assessment Noted Time PHQ-9 Depression Total Score: 17 024 1:51 PM EDT documented as of this encounter Care Teams Security Police Officer Relationship Specialty Start Date End Date Magruerite Kaba FNP [address] [place] [address] PCP - General Family Medicine 10/18/22 Liz Nieves Basket SorterEnterprise Applications Manager 04/08/24 documented as of this encounter
--- OUTSIDE RECORDS SUMMARY | 2024-11-25 17:29 | XMS_ITS | Encounter Summary ---
Author Organization [employer] Address [address] [place] [address] [address], [place] [address] Care Team Providers Care Financial Services Director Name Role Phone Marguerite Kaba Primary Care Provider [phone] Encounter Details Date Type Department Care Team (Late Contact Info) Description 10/22/2022 Telephone [facility] MEDICINE [address] [place], [place] [phone] Marguerite Kaba FNP [address] [place] [address] Social History Tobacco Use Types Packs/Day Years Used Date Smoking Tobacco: Never Assessed Comments Unknown Sex and Gender Information Value Date Recorded Sex Assigned at Female 09/03/2022 10:15 AM EDT Legal Sex Female 10:15 AM EDT Gender Identity Female 09/03/2022 10:15 AM EDT Sexual Orientation Choose not to disclose 2021 10:15 AM EDT documented as of this encounter Plan of Treatment Upcoming Encounters Date Type Department Care Team (Late Contact Info) Description 12/14/2024 11:15 AM EST Office Visit [facility]EDS [address] [place], [place] [phone] Marguerite Kaba FNP [address] [place] [address] documented as of this encounter Visit Diagnoses Not on filedocumented in this encounter Care Teams Financial Services Director Relationship Specialty Start Date End Date Marguerite Kaba FNP [address] [place] [address] PCP - General Family Medicine 10/18/22 Liz Nieves Band Ripsaw OperatorVice President Media Relations 04/08/24 documented as of this encounter
--- OUTSIDE RECORDS SUMMARY | 2024-11-25 17:29 | XMS_ITS | Clinical Summary ---
Author Organization [facility] Address [address] [place] [address] Care Team Providers Care Basin Cleaner Name Role Phone Unavailable Primary Care Provider Unavailabl e Source Comments PLEASE NOTE, if this patient is a minor, it may be UNLAWFUL to discuss sensitive information that is contained in these records (such as FAMILY PLANNING, MENTAL HEALTH or SUBSTANCE ABUSE) with the minor patient's parent or other person without the patient's specific authorization.[facility] Immunizations Name Administration Dates Next Due PFIZER COVID VACCINE, PURPLE CAP, 12+ 05/18/2021 ,04/27/2021 Social History Tobacco Use Types Packs/Day Years Used Date Smoking Tobacco: Never Assessed Social Connections Answer Date Recorded Social Connections and Isolation 0 05/23/2024 Financial Resource Strain Answer Date R ecorded Financial Resource Strain 0 2023 Stress Answer Date Recorded Stress 0 05/23/2024 Physical Activity Answer Date Recorded Physical Activity 0 05/23/2024 Food Insecurity Answer Date Recorded Food 0 05/23/2024 Transportation Needs Answer Date Record ed Transportation 0 05/23/2024 Housing Stability Answer Date Recorded Housing 0 05/23/2024 Safety and Environment Answer Date Adam rded Safety 0 05/23/2024 Utilities Answer Date Recorded Utilities 0 05/23/2024 Employment Answer Date Recorded Employment 0 05/23/2024 Comments Unknown Sex and Gender Information Value Date Recorded Sex Assigned at Not on file Legal Sex Female 9:09 AM PDT Gender Identity Not on file Sexual Orientation Not on file Plan of Treatment Health Maintenance Due Date Last Done Comments Diabetes Screening 1969 HPV Screening 1969 Hepatitis C Screening 1969 Lipid Screening 1969 Pap + HPV 1969 Tobacco Screening 1969 HIV Screening 1984 Hypertension Screening (#1) 1987 Imm-Hepatitis B (1 of 3 - 19 + 3-dose series) 1988 Cervical Cancer Screening 1990 Pap Smear 1990 Breast Cancer Screening (Mammogram) 2009 CT Colonography 2014 Colonoscopy 2014 Colorectal Cancer Screening 2014 FIT/gFOBT 2014 Fecal DNA 2014 Flexible Sigmoidoscopy 2014 Imm-Zoster, Recombinant (1 of 2) 2019 Imm-DTaP/Tdap/Td (2 - Td or Tdap) 05/10/2024 014, 03/17/1996 [id number] (3 season) 2024 021, 04/27/2021 Imm-Influenza (#1) 2024 09/07/2013, 0 11/05/2012, 07/21/2011 Alcohol and Drug Screen 11/04/2024 Depression Annual Screen 11/04/2024 Cervical Ablation/Cold-Knife Conization Discontinued Cervical Cryotherapy Discontinued Colposcopy Discontinued Endometrial Biopsy Discontinued Excision/Leep Discontinued HPV Genotyping Discontinued Vaginal Pap Discontinued Vulvoscopy Discontinued [address]
--- OUTSIDE RECORDS SUMMARY | 2024-11-25 17:29 | XMS_ITS | Encounter Summary ---
Author Organization [employer] Address [address] [place] [address] [address] [place] [address] Care Team Providers Care Manager Decision Support Name Role Phone Marguerite Kaba Primary Care Provider [phone] Reason for Visit * Reason Onset Date Comments r/s appt 01/18/2023 Encounter Details Date Type Department Care Team ([facility] st Contact Info) Description 01/18/2023 Telephone [facility] MEDICINE [address] [place] [address] Marguerite Kaba FNP [address] [place] [address] r/s appt Social History Tobacco Use Types Packs/Day Years Used Date Smoking Tobacco: Former Cigarettes Smokeless Tobacco: Never Alcohol Use Standard Drinks/Week Comments Never 0 (1 standard drink = 0.6 oz pur e alcohol) Comments Unknown Sex and Gender Information Value Date Recorded Sex Assigned at Female 09/03/2022 10:15 AM EDT Legal Sex Female 10:15 AM EDT Gender Identity Female 09/03/2022 10:15 AM EDT Sexual Orientation Choose not to disclose 2021 10:15 AM EDT COVID-19 Exposure Response Date Recorded In the last 10 days, have yo u been in contact with someone who was confirmed or suspected to have Coronavirus/COVID-19? No / Unsure 12/21/2022 3:36 PM EST documented as of this encounter Miscellaneous Notes * Telephone Encounter - Emil Bangura Pineda - 01/18/2023 11:55 AM EDT Tc from pt requesting to r/s appt for Physical on 02/04/2023. Please contact pt at [phone] documented in this encounter Plan of Treatment Upcoming Encounters Date Type Department Care Team ([facility] st Contact Info) Description 12/14/2024 11:15 AM EST Office Visit [facility] MED & PEDS [address] [place] [address] Marguerite Kaba FNP [address] [place] [address] documented as of this encounter Visit Diagnoses Not on filedocumented in this encounter Additional Health Concerns Assessment Noted Time PHQ-9 Depression Total Score: 0 12/21/19 23 3:46 PM EST documented as of this encounter Care Teams Manager Decision Support Relationship Specialty Start Date End Date Marguerite Kaba FNP [address] [place] [address] PCP - General Family Medicine 10/18/22 Liz Nieves Direct Care SpecialistWorkforce Services Representative 04/08/24 documented as of this encounter
--- OUTSIDE RECORDS SUMMARY | 2024-11-25 17:29 | XMS_ITS | Encounter Summary ---
Author Organization [employer] Address [address] [facility] [address] [place] [address] Care Team Providers Care Loom Inspector Name Role Phone Marguerite Kaba Primary Care Provider [phone] Encounter Details Date Type Department Care Team ([facility] st Contact Info) Description 01/24/2023 Telephone [facility] MEDICINE [address] [place] [address] Marguerite Kaba FNP [address] [place] [address] Social History Tobacco Use Types Packs/Day Years [...] Patient Health Questionnaire-2 Score 5 03/09/2024 Comments Unknown Sex and Gender Information Value [...] suspected to have Coronavirus/COVID-19? No / Unsure 03/11/2023 10:19 AM EDT documented as of this encounter Plan of Treatment Upcoming Encounters Date Type Department Care Team ([facility] st Contact Info) Description 12/14/2024 11:15 AM EST Office Visit [facility] MED & PEDS [address] [place] [address] Marguerite Kaba FNP [address] [place] [address] documented as of this encounter Visit Diagnoses Not on filedocumented in this encounter Additional Health Concerns Assessment Noted Time PHQ-9 Depression Total Score: 0 12/21/19 23 3:46 PM EST documented as of this encounter Care Teams Loom Inspector Relationship Specialty Start Date End Date Marguerite Kaba FNP [address] [place] [address] PCP - General Family Medicine 10/18/22 Liz Nieves International OrganizerApplication Packager 04/08/24 documented as of this encounter
--- OUTSIDE RECORDS SUMMARY | 2024-11-25 17:29 | XMS_ITS | Encounter Summary ---
Author Organization [employer] Address [address] [place] [address] [address] [place] [address] Care Team Providers Care Security Inspector Name Role Phone Marguerite Kaba Primary Care Provider [phone] Encounter Details Date Type Department Care Team (Late st Contact Info) Description 10/19/2022 Orders Only [facility] [address] [place] [address] Mandy Gilbert LPN Social History Tobacco Use Types Packs/Day Years [...] Description 12/14/2024 11:15 AM EST Office Visit [facility] [address] [place] [address] Marguerite Kaba FNP [address] [place] [address] documented as of this encounter Visit Diagnoses Not on filedocumented in this encounter Care Teams Security Inspector Relationship Specialty Start Date End Date Marguerite Kaba FNP [address] [place] [address] PCP - General Family Medicine 10/18/22 Liz Nieves Weatherization CoordinatorAuthor 04/08/24 documented as of this encounter
--- OUTSIDE RECORDS SUMMARY | 2024-11-25 17:29 | XMS_ITS | Encounter Summary ---
Author Organization [employer] Address [address] [place] [address] [address] [place] [address] Care Team Providers Care Senior Security Architect Name Role Phone Marguerite Kaba Primary Care Provider [phone] Encounter Details Date Type Department Care Team (Late Contact Info) Description 03/18/2023 Orders Only [facility] MEDICINE [address] [place] [address] Marguerite Kaba FNP [address] [place], [place] [phone] Encounter for routine history and physical examination of adult (Primary Dx) Social History Tobacco Use Types Packs/Day Years [...] Description 12/14/2024 11:15 AM EST Office Visit [facility] PEDS [address] [place], [place] [phone] Marguerite Kaba FNP [address] [place] [address] Scheduled Orders Name Type Priority Associated Diagnoses Orde r Schedule TSH W/Reflex to FT4 Lab Routine Encounter for routine history and physical examination of adult Expected: 03/18/2023 (Approximate), Expires: 03/18/2024 Thyroid Peroxidase And Thyroglobulin Antibodies Lab Routine Encounter for routine history and physical examination of adult Expected: 03/18/2023 (Approximate), Expires: 03/18/2024 documented as of this encounter Visit Diagnoses Diagnosis Encounter for routine history and physical examination of adult- Primary documented in this encounter Additional Health Concerns Assessment Noted Time PHQ-9 Depression Total Score: 0 12/21/19 23 3:46 PM EST documented as of this encounter Care Teams Senior Security Architect Relationship Specialty Start Date End Date Marguerite Kaba FNP [address] [place] [address] PCP - General Family Medicine 10/18/22 Liz Nieves Rod GreaserChronic Condition Nurse 04/08/24 documented as of this encounter
--- OUTSIDE RECORDS SUMMARY | 2024-11-25 17:29 | XMS_ITS | Clinical Summary ---
Author Organization [employer] Address [address] [place] [address] 7 [place] [address] Care Team Providers Care Portable Machine Sander Name Role Phone Denisabert Marguerite REMY Primary Care Provider [phone] Allergies No known active allergies Medications * This document contains information received from the source organization and may not represent a complete record from that organization. hydrOXYzine HCl (Atarax) 50 MG tablet TAKE 1 TABLET BY MOUTH THREE TIMES A DAY 0 Active albuterol (2.5 MG/3ML) 0.083% nebulizer solution inhale 3 milliliter by nebulization route 4 times every day prn as needed 75 mL 3 3 Active cetirizine (ZyrTEC) 10 MG tabletIndicatio ns:Seasonal allergic rhinitis, unspecified trigger Take 1 tablet (10 mg) by mouth if needed at bedtime for allergies. 90 tablet 3 3 Active hydroCHLOROthia zide (HYDRODiuril) 25 MG tablet TAKE 1 TABLET BY MOUTH EVERY DAY IN THE MORNING 90 tablet 3 4 Active cholecalciferol (Vitamin D-3) 50 MCG (1999) tablet TAKE 1 TABLET BY MOUTH EVERY MORNING 90 tablet 1 4 Active sertraline (Zoloft) 50 MG tablet Take 50 mg by mouth Once per day. 4 Active Symbicort 160-4.5 MCG/ACT inhaler INHALE 2 PUFFS BY MOUTH 2 TIMES A DAY 4 Active rosuvastatin (Crestor) 20 MG tabletIndicatio ns:High blood cholesterol level TAKE 1 TABLET BY MOUTH AT BEDTIME 90 tablet 3 05/10/202 4 Active albuterol (Ventolin HFA) 108 (90 Base) MCG/ACT inhalerIndicati ons:Asthma, unspecified asthma severity, unspecified whether complicated, unspecified whether persistent INHALE 2 PUFFS BY MOUTH EVERY 4 TO 6 HOURS NEEDED 180 g 3 4 Active tiZANidine (Zanaflex) 4 MG tabletIndicatio ns:Low back pain at multiple sites TAKE 1 TABLET BY MOUTH EVERY 8 HOURS IF NEEDED FOR MUSCLE SPASMS. 270 tablet 1 4 Active omeprazole (PriLOSEC) [address] capsule Take 1 capsule (20 mg) by mouth Once per day. 90 capsule 1 4 Active hydrOXYzine HCl (Atarax) 25 MG tablet Take 25 mg by mouth 2 times daily. 4 Active sertraline (Zoloft) 100 MG tablet TAKE 1 TABLET BY MOUTH DAILY FOR DEPRESSION AND ANXIETY. STOP TAKING IF ANY MANIC SYMPTOMS MANIFEST 4 Active Diclofenac Sodium 1 % gelIndications: Acute pain of right knee Apply thin layer by topical route (quantity as directed on package insert) to affected area of pain 3 times daily as needed. 50 g 3 4 Active magnesium 250 MG tabletIndicatio ns:Muscle cramps Take 1 tablet (250 mg) by mouth at bedtime. 90 tablet 1 4 Active fexofenadine (Judith) 180 MG tabletIndicatio ns:Allergic reaction, initial encounter TAKE 1 TABLET BY MOUTH EVERY DAY NEEDED ALLERGIES 90 tablet 1 4 Active ibuprofen 800 MG tabletIndicatio ns:Acute pain of right knee Take 1 tablet (800 mg) by mouth if needed in the morning and at bedtime (pain or fever). 100 tablet 3 4 Active Active Problems Problem Noted Date Diagnosed Date Chronic pain of right knee 08/30/2024 Overview (08/30/2024): Jul 2024: XR right knee WNL Following with PS&S (last consult Aug 2024) Assessment & Plan (08/30/2024 6:37 PM EDT): -Follow up with Ortho as scheduled -Cont with symptomatic management Subclinical hypothyroidism 03/10/2024 Overview (04/19/2024): Consult with [facility] Endo - Dr. De Jesus Consult Sep 2023: Plan to repeat labs (w/ antibody testing), and US to r/o nodular thyroid disease Lab Results Component Value Date TSH 0.24 (L) 06/28/2023 Assessment & Plan (04/19/2024 7:08 PM EDT): Pt reports that she was told no acute concerns, and that specialist recommended continued monitoring through PCP. Re-check TSH, and request consult notes. Severe anxiety 10/14/2023 Cannabis abuse 10/14/2023 Healthcare maintenance 06/23/2023 Overview (04/19/2024): Routine Health Maintenance Optometry: [facility] (UTD as of April 2024) Dental: following with outside clinic (as of April 2024) BMD: starting at 64 y/o Last PE: 04/17/24 Routine Cancer Screening Breast CA: BIRADS 04 Sep 2023 Cervical CA: NILM HPV Neg January 2021 Colon CA: referral to GI placed 03/14/23. Pt subsequently declined colonoscopy. Cologuard negative March 2024 Lung CA: continues with low dose CT through Dr. Olmstead Chronic lumbar radiculopathy 03/14/2023 Overview (08/30/2024): Imaging: XR lumbar spine January 2023 w/ mild degenerative changes noted, no fx. Lumbar MRI through PS&S ordered April 2024, results not available Specialists: Following with PS&S (last consult Aug 2024) Referral to chiropractic placed 03/14/23 & 06/21/23 per pt request Completed physical therapy with good relief Medications: continue tizanidine PRN muscle spasms, reviewed med safety and SE Assessment & Plan (08/30/2024 6:36 PM EDT): Reports well controlled/resolved at this time following physical therapy Cont following with specialists Assessment & Plan (04/19/2024 7:03 PM EDT): -Acute on chronic low back pain; Intermittent radiation of pain down left lower extremity -No red flag symptoms -PE significant for paraspinal muscle spasms and tenderness left cervical and lumbar region -Encouraged symptomatic management including topical application of heat, rest, light stretching, pressure w/ tennis ball Imaging: XR lumbar spine January 2023 w/ mild degenerative changes noted, no fx. Specialists: Completed a few sessions with PT, but reports did not find very helpful Referral to chiropractic placed 03/14/23 & 06/21/23 per pt request Referral to PS&S on 03/10/24 Medications: continue tizanidine PRN muscle spasms, reviewed med safety and SE Assessment & Plan (03/10/2024 11:07 AM EDT): -Acute on chronic low back pain; Intermittent radiation of pain down left lower extremity -No red flag symptoms -PE significant for paraspinal muscle spasms and tenderness left cervical and lumbar region -Encouraged symptomatic management including topical application of heat, rest, light stretching, pressure w/ tennis ball Imaging: XR lumbar spine January 2023 w/ mild degenerative changes noted, no fx. Specialists: Completed a few sessions with PT, but reports did not find very helpful Referral to chiropractic placed 03/14/23 & 06/21/23 per pt request Referral to PS&S on 03/10/24 Medications: continue tizanidine PRN muscle spasms, reviewed med safety and SE Assessment & Plan (06/23/2023 7:51 AM EDT): -Acute on chronic low back pain; Intermittent radiation of pain down left lower extremity -No red flag symptoms -PE significant for paraspinal muscle spasms and tenderness left cervical and lumbar region -Encouraged symptomatic management including topical application of heat, rest, light stretching, pressure w/ tennis ball ?? Imaging: ?? XR lumbar spine January 2023 w/ mild degenerative changes noted, no fx. ?? Specialists: ?? Completed a few sessions with PT, but reports did not find very helpful ?? Referral to chiropractic placed 03/14/23 per pt request. Reports she never received, will re-place 06/21/23. ?? Medications: ?? continue tizanidine PRN muscle spasms, reviewed med safety and SE Assessment & Plan (03/14/2023 10:40 AM EDT): -Acute on chronic low back pain; Intermittent radiation of pain down left lower extremity -No red flag symptoms -PE significant for paraspinal muscle spasms and tenderness left cervical and lumbar region -Encouraged symptomatic management including topical application of heat, rest, light stretching, pressure w/ tennis ball ?? Imaging: ?? XR lumbar spine January 2023 w/ mild degenerative changes noted, no fx. ?? Specialists: ?? Completed a few sessions with PT, but reports did not find very helpful ?? Referral to chiropractic placed 03/14/23 per pt request ?? Medications: ?? continue tizanidine PRN muscle spasms, reviewed med safety and SE Cigarette smoker 03/10/2023 Assessment & Plan (10/13/2023 7:05 PM EST): ?? Currently smoking 2-5 cigg/day ?? Follow up if interested in smoking cessation resources ?? Continue following with Pul Assessment & Plan (06/23/2023 7:57 AM EDT): ?? Currently smoking 2-5 cigg/day ?? Follow up if interested in smoking cessation resources ?? Continue following with Pul Assessment & Plan (03/14/2023 10:36 AM EDT): ?? Currently smoking 2 cigg/day ?? Follow up if interested in smoking cessation resources ?? Continue following with Pul GARETT (obstructive sleep apnea) 01/09/2023 Overview (06/23/2023): ?? Sleep study completed Dec 2022. Impression: Moderately severe GARETT. DME order placed 01/09/23. Assessment & Plan (03/10/2024 10:24 AM EDT): Followed by Dr. Modi - [facility]. Nov 2023: Adjusted CPAP settings from 4-16 to 4-8 Mask: requested F30 12/30/23: Recertification for CPAP signed by PCP Lipoma of scalp 12/19/2022 Overview (06/23/2023): ? ? Lipoma of scalp removed january 2023 at [facility] Assessment & Plan (03/10/2023 8:25 PM EDT): ?? Lipoma of scalp removed january 2023 at [facility] Carpal tunnel syndrome of right wrist 11/10/2022 Assessment & Plan (03/10/2023 8:20 PM EDT): -EMG completed 09/12/22 with the following impression: mild carpal tunnel syndrome on the right -Pt is s/p left carpal tunnel surgery and trigger thumb release -[place] [facility] [place] for further eval and treatment Nov 2022 Assessment & Plan (11/10/2022 3:17 PM EST): -EMG completed 09/12/22 with the following impression: mild carpal tunnel syndrome on the right -Pt is s/p left carpal tunnel surgery and trigger thumb release -Referral [place] [facility] [place] for further eval and treatment Follow up in 4 weeks for Transfer Patient visit Hypertension 11/09/2022 Assessment & Plan (06/23/2023 7:57 AM EDT): ?? Home BP readings: reports well controlled ?? Continue hydrochlorothiazide 25mg daily and lifestyle interventions Assessment & Plan (03/14/2023 10:33 AM EDT): ?? Home BP readings: reports well controlled ?? Continue hydrochlorothiazide 25mg daily and lifestyle interventions Fatigue 04/11/2018 Plantar fasciitis 03/21/2016 Posttraumatic stress disorder 01/17/2015 Major depressive disorder 01/17/2015 Assessment & Plan (03/10/2024 11:15 AM EDT): Mood disorder with hx of MDD, PTSD, anxiety, and bipolar disorder listed in chart Denies active SI/HI/thoughts of self harm Previous med regimen included: trazodone, seroquel, and abilify Pt established with new psych prescriber: Ana Maria Mcintosh APRN. Reports feels more stable and able to sleep better with current regimen: Sertraline 50mg daily Hydroxyzine PRN anxiety Assessment & Plan (10/14/2023 4:12 PM EST): PROGRESS NOTE: ID: Isabelle is a 53 y.o. Decline to answer choose not to disclose- identified cis-female (pronouns ) with previous documented hx of Depression and Anxiety MH services including OP Psychotherapy psychopharmacology who presents for Anxiety and Depression During IBH Consult Isabelle presenting with depressed mood, loss of interests/pleasure, change in sleep, change in appetite or weight, change in psychomotor activity, loss of energy, trouble concentrating, thoughts about or suicide and fatigue, insomnia, irritable, psychomotor agitation, racing thoughts; for a period of 18+ mo, for all symptoms in the context of loneliness, isolating, not talking with no one and lack of MH services. PLAN: (check all that apply) New/Additional Services needed Off-site services for [facility] Psychopharmacology referral, Behavioral Health Integration Plan Internal Cold handoff internal psychiatric provider , External OP therapy referral , OP psychiatry Referral, Patient Self Plan Patient to utilize skills provided in intervention , Patient to reach out to [facility] team as needed, and Patient to reach out to [facility] as needed Assessment & Plan (10/13/2023 7:04 PM EST): ?? PHQ9 score: 20. Denies active SI/HI/thoughts of self harm ?? In need of re-establish with psych, declines interest in BE today. Will request BE over the phone. ?? Reviewed crisis info PRN ?? Continue with current med regimen through psych: ?? Abilify 5mg nightly ?? Trazodone 50-100mg nightly ?? Quetiapine 75mg nightly (unclear if active) ?? Hydroxyzine 50mg PRN for anxiety (unclear if active) Assessment & Plan (06/23/2023 7:55 AM EDT): ?? PHQ9 score: 24. Denies active SI/HI/thoughts of self harm ?? Continue following with psych, declines interest in BE today. Therapy appt scheduled for 06/24/23 ?? Reviewed crisis info PRN ?? Continue with current med regimen through psych: ?? Abilify 5mg nightly ?? Trazodone 50-100mg nightly ?? Quetiapine 75mg nightly (unclear if active) ?? Hydroxyzine 50mg PRN for anxiety (unclear if active) Assessment & Plan (03/14/2023 10:35 AM EDT): ?? Continue following with psych ?? Denies SI/HI/thoughts of self harm ?? Continue with current med regimen through psych: ?? Quetiapine 75mg nightly ?? Hydroxyzine 50mg PRN for anxiety Vitamin D deficiency 10/31/2012 Iron deficiency anemia 10/31/2012 Bipolar disorder 10/31/2012 Asthma 10/31/2012 Assessment & Plan (04/19/2024 7:07 PM EDT): Well controlled, using albuterol <2x/week Following [place] [facility] [place] (Dr. Modi) due to pleural thickening and nodules. Continue with current regimen: Symbicort BID Albuterol PRN Montelukast 10mg nightly Assessment & Plan (03/10/2024 10:22 AM EDT): Well controlled, using albuterol <2x/week Following [place] [facility] (Dr. Modi) due to pleural thickening and nodules. Continue with current regimen: Symbicort BID Albuterol PRN Montelukast nightly Assessment & Plan (06/23/2023 7:57 AM EDT): ?? Well controlled, using albuterol <2x/week ?? Following with Pulm due to pleural thickening and nodules ?? Continue with current regimen: ?? Advair BID ?? Albuterol PRN ?? Montelukast nightly Assessment & Plan (03/14/2023 10:31 AM EDT): ?? Reports well controlled, using albuterol <2x/week ?? Following with Pulm due to pleural thickening and nodules ?? Continue with current regimen: ?? Advair BID ?? Albuterol PRN ?? Montelukast nightly Allergic rhinitis 10/31/2012 Encounters Date Type Department Care Team Description 11/19/2024 Travel 10/06/2024 Refill [facility] [address] [place] [address] Erma Bass MD Acute pain of right knee 09/25/2024 Telephone [facility] [address] [place] [address] Marguerite Kaba FNP Results 09/22/2024 Orders Only [facility] [address] [place] [address] Marguerite Kaba FNP 09/17/2024 Refill [facility] [address] [place] [address] Erma Bass MD Allergic reaction, initial encounter 09/03/2024 1:45 PM EDT Office Visit [facility] [address] [place] [address] Erma Bass MD Allergic reaction, initial encounter (Primary Dx) 09/03/2024 Travel 09/03/2024 Telephone [facility] [address] [place] [address] Marguerite Kaba FNP Nurse Triage 08/28/2024 11:00 AM EDT Office Visit [facility] [address] [place] [address] Marguerite Kaba FNP Chronic lumbar radiculopathy (Primary Dx); Chronic pain of right knee 08/28/2024 Telephone [facility] [address] [place] [address] Marguerite Kaba FNP Concrete Layer: Critical Lab - hypokalemia 08/28/2024 Travel 08/27/2024 Telephone [facility] [address] [place] [address] Oly Jeter MA Chart Prep from Last 3 Months Immunizations Name Administration Dates Next Due Influenza injectable quadrivalent preservative f ree 10/11/2023,09/08/2021 Influenza, IIV3, injectable 07/21/2011 Influenza, Split (incl. purified surface antigen ) 09/07/2013,11/05/2012 Influenza, seasonal, injectable, preservative fr ee 08/05/2024 Pneumococcal Conjugate PCV 20 11/19/2022 Pneumococcal Polysaccharide PPSV23 03/08/2010 Pneumococcal, Unspecified 03/08/2010 TD (adult), 2 Lf tetanus tox oid, preservative free, adsorbed 03/17/1996 Tdap 05/10/2014 Zoster, Recombinant 12/23/2022 Social History Tobacco Use Types Packs/Day Years [...] the past 12 months, has t he [employer], gas, oil or water [employer] threatened to shut off services in your home? No 09/04/2023 Depression Answer Date Recorded Patient Health Questionnaire-2 Score 5 03/09/2024 Comments No Sex and Gender Information Value Date Recorded Sex Assigned at Female 09/03/2022 10:15 AM EDT Legal Sex Female 10:15 AM EDT Gender Identity Female 09/03/2022 10:15 AM EDT Sexual Orientation Choose not to disclose 2021 10:15 AM EDT Last Filed Vital Signs Vital Sign Reading Time Taken Comments Blood Pressure 125/82 09/03/2024 2:01 PM EDT Pulse 82 09/03/2024 2:01 PM EDT Temperature 36.6 ??C (97.9 ??F) 09/03/2024 2:01 PM ED T Respiratory Rate 20 09/03/2024 2:01 PM EDT Oxygen Saturation 98% 09/03/2024 2:01 PM EDT Inhaled Oxygen Concentration - - Weight 69.9 kg (154 lb) 09/03/2024 2:01 PM EDT Height 162.6 cm (5' 4 ) 09/03/2024 2:01 PM EDT Body Mass Index 26.43 09/03/2024 2:01 PM EDT Plan of Treatment Upcoming Encounters Date Type Department Care Team (Late st Contact Info) Description 12/14/2024 11:15 AM EST Office Visit [facility] [address] [place] [address] Marguerite Kaba, [facility] [address] [place] [address] Health Maintenance Due Date Last Done Comments CT Colonography 1970 Colonoscopy 1969 Dental Oral Exam 1969 Dental Prophylaxis 1969 Dental X-Ray: Bitewings 1969 Dental X-Ray: Full Mouth 1969 FIT 1969 FOBT 1969 Sigmoidoscopy 1969 Alcohol/Substance Use Screening 1981 Hepatitis A Vaccines (1 of 2 - Risk 2-dose series) 1988 Hepatitis B Vaccines (1 of 3 - 19+ 3-dose series) 1988 Zoster Vaccines (2 of 2) 02/17/2023 12/23/2022 Pap Smear 01/06/2024 01/05/2021 DTaP/Tdap/Td Vaccines (2 - Td or Tdap) 05/10/2024 05/10/2014, 03/17/1996 Depression Monitoring (PHQ-9) 09/09/2024 03/09/2024, 03/09/2024 Depression Screening 03/09/2025 03/09/2024, 03/09/20 24 SDOH Screening 04/09/2025 04/09/2024 Diabetes: Hemoglobin A1C 08/28/2025 10/25/2 024, 06/28/2023, 03/11/2023, Additional history exists Tobacco Screening 08/28/2025 08/28/2024 COVID-19 Vaccine ( season) 2025 05/18/2021, 04/27/2021 Postponed from 07/05/2024 (Patient Refused) Mammogram 09/22/2025 09/22/2024, 09/04, 09/11/2022, Additional history exists Cervical Cancer Screening 01/05/2026 HPV/Cotest 01/05/2026 01/05/2021 Colorectal Cancer Screening 03/20/2027 FIT DNA/Cologuard 03/20/2027 03/20/2024 Lipid Panel 08/28/2029 08/28/2024, 05/0 06/2023, 01/05/2022 RSV Patients and Patients Aged 60 years or older (1 - 1-dose 75+ series) 2044 Pneumococcal Vaccine: Pediatrics (0 to 5 Years) and At-Risk Patients (6 to 64 Years) Completed 11/19/2022, 03/08/2010, 03/08/2010 HIV Screening Completed 03/11/2023 Hepatitis C Screening Completed 03/11/2023 Influenza Vaccine Completed 08/05/2024, , 09/08/2021, Additional history exists HIB Vaccines Aged Out No longer eligi ble based on patient's age to complete this topic HPV Vaccines Aged Out No longer eligi ble based on patient's age to complete this topic IPV Vaccines Aged Out No longer eligi ble based on patient's age to complete this topic Meningococcal Vaccine Aged Out No sujata leodan eligible based on patient's age to complete this topic RSV under 20 months Aged Out No longe r eligible based on patient's age to complete this topic Rotavirus Vaccines Aged Out No longer eligible based on patient's age to complete this topic Procedures Procedure Name Priority Date/Time Associated Diagnosis Comments BI MAMMOGRAM SCREENING TOMOSYNTHESIS BILATERAL Routine 09/22/2024 11:35 AM EST MAGNESIUM Routine 09/03/2024 1:50 PM EDT Hypokalemia BASIC METABOLIC PANEL Routine 09/03/2024 1:50 PM EDT Hypokalemia ALBUMIN, RANDOM URINE W/CREATININE Routine 08/28/2024 2:40 PM EDT Healthcare maintenance CBC WITH AUTO DIFFERENTIAL Routine 08/28/2024 2:30 PM EDT Healthcare maintenance COMPREHENSIVE METABOLIC PANEL Routine 08/28/2024 2:30 PM EDT Healthcare maintenance TSH W/REFLEX TO FT4 Routine 08/28/2024 2 :30 PM EDT Healthcare maintenance HEMOGLOBIN A1C Routine 08/28/2024 2:30 PM EDT Healthcare maintenance LIPID PANEL, STANDARD Routine 08/28/2024 2:30 PM EDT Healthcare maintenance LAB COLOGUARD?? COLON CANCER SCREEN Routine 03/20/2024 10:00 AM EDT Colon cancer screening HEPATITIS C AB W/REFL TO HCV RNA, QN, PCR Routine 03/11/2023 11:31 AM EDT Encounter for routine history and physical examination of adult HIV 1 RNA, QN PCR W/REFLEX TO GENOTYPE Routine 03/11/2023 11:31 AM EDT Encounter for routine history and physical examination of adult ZZZ HISTORICAL THINPREP PAP AND HPV MRNA E6/E7 REFLEX HPV 16,18/45 Routine 01/05/2021 3:49 PM EST from Last 3 Months or Most Recently Relevant to Health Maintenance Results * BI Mammogram Screening Tomosynthesis Bilateral (09/22/2024 11:35 AM EST) Anatomical Region Laterality Modality Breast Bilateral Mammography 09/22/2024 11:3 5 AM EST Narrative 09/30/2024 8:21 AM EST ? [facility] ? [address] ?[place] [address] ? Mammography Report ? Signed ? Patient: Burger,Isabelle ?MR#: [id number] ?? 153 ? : 1970 ?Acct:[id number] ? Age/Sex: 54 / F ?ADM Date: 09/22/24 ? Loc: HO.MAMMO ? Attending Dr: Marguerite Kaba [facility] ? Ordering Physician: Marguerite Kaba [facility] ?Results: 1Negat ?? dontae ? Date of Service: 09/22/24 ?Follow Up: 1 Year From Orig ?? inal Mammogram ? Procedure(s): MM tomosynthesis screening BI ?? Accession Number(s): [id number] ? cc: Marguerite Kaba [facility] ? EXAMINATION: ?? MM SCREENING DIGITAL BREAST TOMOSYNTHESIS, BILATERAL ? CLINICAL INFORMATION: ? Screening. Asymptomatic. ? COMPARISON: ?? Mammography: Comparison is made with available priors ? TECHNIQUE: ?? Digital breast mammography with tomosynthesis is performed in both the ?? craniocaudal and mediolateral oblique views along with computer-aided ?? detection (CAD). ? FINDINGS: ?? There are scattered areas of fibroglandular density (ACR BI-RADS breast ?? composition Category b). ? There are no significant masses, abnormal calcifications, or other ?? abnormalities. ? MM/MM tomosynthesis screening BI ?? IMPRESSION: ?? No mammographic evidence of malignancy. ? ASSESSMENT: ? BI-RADS BI-RADS 1 - Negative ? RECOMMENDATION: ?? Routine annual mammography screening. ? 1 year F/U ? This examination should not preclude the clinical evaluation of a ?? suspicious palpable abnormality. ? This patient's information was entered into a reminder system with a ?? target due date for their next mammogram. ? Electronically signed by: ??Dasia Hull DO ??09/30/2024 08:17 AM EST ?? RP ? Dictated By: ?Dasia Hull DO ? Signed By: ?<Electronically signed by Dasia Hull, DO in OV> ? 09/30/24 0817 ? DD/ 1135 ? TD/TT: 09/22/24 1140 ? Anodic Operator: ? Procedure Note Donraphaelkareenramyter, Image - 09/30/2024 D[facility] [address] [place] [address] Mammography Report Signed Patient: Isabelle BurgerMR#: [id number] 153 : 1970Acct:[id number] Age/Sex: 54 / FADM Date: 09/22/24 Loc: HO.MAMMO Attending Dr: Marguerite Kaba [facility] Ordering Physician: Marguerite KabaPResults: 1Negat dontae Date of Service: 09/22/24Follow Up: 1 Year From Orig inal Mammogram Procedure(s): MM tomosynthesis screening BI Accession Number(s): [id number] cc: Marguerite Kaba [facility] EXAMINATION: MM SCREENING DIGITAL BREAST TOMOSYNTHESIS, BILATERAL CLINICAL INFORMATION: Screening. Asymptomatic. COMPARISON: Mammography: Comparison is made with available priors TECHNIQUE: Digital breast mammography with tomosynthesis is performed in both the craniocaudal and mediolateral oblique views along with computer-aided detection (CAD). FINDINGS: There are scattered areas of fibroglandular density (ACR BI-RADS breast composition Category b). There are no significant masses, abnormal calcifications, or other abnormalities. MM/MM tomosynthesis screening BI IMPRESSION: No mammographic evidence of malignancy. ASSESSMENT: BI-RADS BI-RADS 1 - Negative RECOMMENDATION: Routine annual mammography screening. 1 year F/U This examination should not preclude the clinical evaluation of a suspicious palpable abnormality. This patient's information was entered into a reminder system with a target due date for their next mammogram. Electronically signed by: Dasia Hull DO 09/30/2024 08:17 AM EST Dictated By: Dasia Hull DO Signed By: <Electronically signed by Dasia Hull DO in OV> 09/30/24 0817 DD/ 1135 TD/TT: 09/22/24 1140 Anodic Operator: us Marguerite Kaba ORAL AND MAXILLOFACIAL SURGERY IMG BI PROCEDURES Edited Resul t - Final * Magnesium (09/03/2024 1:50 PM EDT) Magnesium 2.2 1.6 - 2.6 mg/dL [facility] Blood Venous blood specimen / Unknown 09/03/2024 1:50 PM EDT 09/03/2024 2:13 PM EDT us Marguerite PERLAP LAB BLOOD ORDERABLES Final Res ult [facility] [address] [place] [phone] * (ABNORMAL) Basic Metabolic Panel (09/03/2024 1:50 PM EDT) Sodium 141 135 - 145 mmol/L [facility] Potassium 3.3 3.3 - 5.1 mmol/L [facility] Chloride 101 96 - 108 mmol/L [facility] Carbon Dioxide 30(H) 22 - 29 mmol/L [facility] Anion Gap 13 12 - 20 [facility] Urea Nitrogen (BUN) 22(H) 9 - 16 mg/dL [facility] Creatinine, Serum 0.84 0.5 - 1.4 mg/dL [facility] Estimated Glomerular Filt Rate >60 [facility] Comment:NOTE: For -Am erican individuals, multiply the result by 1.210.Chronic Kidney Disease: Estimated GFR < 60 mL/min/1.41q2Chixbm Kidney Disease: Estimated GFR < 15 mL/min/1.73m2 Glucose 113 60 - 115 mg/dL [facility] Calcium 10.0 8.4 - 10.2 mg/dL [facility] Blood Venous blood specimen / Unknown 09/03/2024 1:50 PM EDT 09/03/2024 2:13 PM EDT Marguerite Phalen [facility]AL AND MAXILLOFACIAL SURGERY LAB BLOOD ORDERABLES Final Res ult [facility] [address] [place] [address] [phone] * Albumin, Random Urine W/Creatinine (08/28/2024 2:40 PM EDT) Creatinine, Urine 115.00 mg/dL [facility] Microalbumin Urine 14.0 mg/L [facility] Microalbum Creatinine Ratio Ur 12.1 <30 ug/mg cr [facility] Comment:Albumin/Creatinine R atio Reference Ranges: Normal: < 30 ug/mg creatinine Microalbuminuria: 30 - 300 ug/mg creatinineClinical Albuminuria: > 300 ug/mg creatinine Urine 08/28/2024 2:40 PM EDT 08/28/2024 5:19 PM EDT Marguerite Phalen [facility] LAB URINE ORDERABLES Final Res ult [facility] [address] [place] [address] [phone] * TSH with Reflex to Free T4 (08/28/2024 2:30 PM EDT) TSH reflex Free T4 0.43 0.32 - 4.0 uIU/mL [facility] Blood 08/28/2024 2:30 PM EDT 08/28/2024 5:19 PM EDT us Marguerite Kaba [facility] MAXILLOFACIAL SURGERY LAB BLOOD ORDERABLES Final Res ult [facility] [address] [place] [phone] * CBC auto differential (08/28/2024 2:30 PM EDT) White Blood Count 6.0 4.8 - 10.8 X10*3/uL [facility] Red Blood Count 4.36 4.20 - 5.50 X10*6/uL [facility] Hemoglobin 12.6 12.0 - 16.0 g/dl [facility] Hematocrit 38.4 37.0 - 47.0 % [facility] Mean Corpuscular Volume 88.1 80.0 - 98.0 fL [facility] Mean Corpuscular Hemoglobin 28.9 27.0 - 33.0 pg [facility] Mean Corpuscular HGB Conc 32.8 31.0 - 35.0 g/dl [facility] Red Cell Distribution Width 13.5 11.0 - 16.0 % [facility] Platelet Count 308 160 - 400 X10*3/uL [facility] Mean Platelet Volume 9.7 9.4 - 12.3 fL [facility] Neutrophils Percent Auto 54.2 45 - 73 % [facility] Imm Gran Pct Auto 0.3 0.0 - 0.4 % [facility] Lymphocytes Percent Auto 34.6 20 - 40 % [facility] Monocytes Percent Auto 7.7 2 - 11 % [facility] Eosinophils Percent Auto 2.2 0 - 4 % [facility] Basophils Percent Auto 1.0 0 - 2 % [facility] NRBC Pct Auto 0.0 0.0 - 0.2 /100WBC [facility] Neutrophils Absolute Auto 3.2 2.0 - 8.3 x10*3/uL [facility] Imm Gran Abs Auto 0.02 0.00 - 0.03 X10*3/uL [facility] Lymphocytes Absolute Auto 2.1 1.2 - 4.9 X10*3/uL [facility] Monocytes Absolute Auto 0.5 0.1 - 1.2 X10*3/uL [facility] Eosinophils Absolute Auto 0.1 0.0 - 0.4 X10*3/uL [facility] Basophils Absolute Auto 0.1 0.0 - 0.2 X10*3/uL [facility] NRBC Abs Auto 0.000 0.0 - 0.012 X10*3/uL [facility] Blood Venous blood specimen / Unknown 08/28/2024 2:30 PM EDT 08/28/2024 5:19 PM EDT us Marguerite Kaba [facility] LAB BLOOD ORDERABLES Final Res ult Performing Organization Address [facility] de Phone Number [facility] [address] [place] [phone] * (ABNORMAL) Hemoglobin A1c (08/28/2024 2:30 PM EDT) Hemoglobin A1c 6.1(H) <6.0 % [facility] Comment:Hemoglobin A1C Refer ence Range Adults: 4.8 - 6.0 % Non diabetic: < 6.0 % Goal: < 7.0 %Additional Action Suggested: > 8.0 %Note: Hemoglobin A1c results are invalid for patients with abnormal amounts of HbF. Blood transfusions may impact the HbA1c concentration in the patient sample. Estimated Average Glucose 128 mg/dL [facility] Comment:eAG = Estimated ave rage glucose which is %A1C expressed asaverage glucose, using the formula of the C2N-RhdcuwvHkmuqqk Glucose study (ADAG), Diabetes Care, Vol.31,#8,2007 Blood Venous blood specimen / Unknown 08/28/2024 2:30 PM EDT 08/28/2024 5:19 PM EDT us Marguerite Kaba [facility] LAB BLOOD ORDERABLES Final Res ult Performing Organization Address [facility] Co de Phone Number [facility] [address] [place] [phone] * (ABNORMAL) Lipid Panel, Standard (08/28/2024 2:30 PM EDT) Triglycerides 366(H) <150 mg/dL [facility] Comment:Desirable Triglyceri de: less than 150 mg/dLBorderline High Triglyceride 150-199 mg/dLHigh Triglyceride: 200-499 mg/dLVery High Triglyceride: greater than or equal to 5OO mg/dL Cholesterol 213(H) <200 mg/dL [facility] Comment:Desirable Cholestero l: less than 200 mg/dLBorderline High Cholesterol: 200-239 mg/dLHigh Cholesterol: greater than 239 mg/dL LDL Cholesterol Calculated 102(H) <100 mg/dL [facility] Comment:Desirable LDL: less than 100 mg/dLNear Optimal/Above Optimal LDL: 110- 129 mg/dLBorderline High LDL: 130-159 mg/dLHigh LDL: 160-189 mg/dLVery High LDL: greater than or equal to 190 mg/dL HDL Cholesterol 38(L) >40 mg/dL [facility] Comment:Desirable HDL: great er than 40 mg/dL Note: This HDL assay may give artificially low results in patients with liver disease. Blood Venous blood specimen / Unknown 08/28/2024 2:30 PM EDT 08/28/2024 5:19 PM EDT Marguerite Kaba [facility]ILLOFACIAL [facility]GERY LAB BLOOD ORDERABLES Final Res ult [facility] [address] [place] [phone] * (ABNORMAL) Comprehensive Metabolic Panel (08/28/2024 2:30 PM EDT) Sodium 141 135 - 145 mmol/L [facility] Potassium 2.8(LL) 3.3 - 5.1 mmol/L [facility] Comment:Critical value for t est(s): POTS Results called to and readback by: MALLORY Person calling: Noemi:08/28/24 Time: 1846 Chloride 104 96 - 108 mmol/L [facility] Carbon Dioxide 29 22 - 29 mmol/L [facility] Anion Gap 11(L) 12 - 20 [facility] Urea Nitrogen (BUN) 21(H) 9 - 16 mg/dL [facility] Creatinine, Serum 0.80 0.5 - 1.4 mg/dL [facility] Estimated Glomerular Filt Rate >60 [facility] Comment:NOTE: For -Am erican individuals, multiply the result by 1.210.Chronic Kidney Disease: Estimated GFR < 60 mL/min/1.45i4Hukuin Kidney Disease: Estimated GFR < 15 mL/min/1.73m2 Glucose 131(H) 60 - 115 mg/dL [facility] Calcium 9.7 8.4 - 10.2 mg/dL [facility] Bilirubin, Total 0.3 0.0 - 1.0 mg/dL [facility] Aspartate Amino Transferase 52(H) 5 - 31 U/L [facility] Alanine Aminotransferase 26 0 - 31 U/L [facility] Total Protein 7.4 6.5 - 8.0 g/dL [facility] Albumin Level 4.4 3.5 - 5.0 g/dL [facility] Alkaline Phosphatase 84 39 - 117 U/L [facility] Blood Venous blood specimen / Unknown 08/28/2024 2:30 PM EDT 08/28/2024 5:19 PM EDT us Marguerite Kaba [facility] MAXILLOFACIAL [facility]GERY LAB BLOOD ORDERABLES Final Res ult [facility] [address], [place] [phone] * Cologuard?? colon cancer screening (03/20/2024 10:00 AM EDT) Cologuard Result Negative Negative 03/27/20 10:37 AM EDT [facility] (CLIA #:[id number]) Comment: NEGATIVE TEST RESULT. A negative Cologuard result indicates a low likelihood that a colorectal cancer (CRC) or advanced adenoma (adenomatous polyps with more advanced pre-malignant features) ??is present. The chance that a person with a negative Cologuard test has a colorectal cancer is less than 1 in 1500 (negative predictive value >99.9%) or has an ??advanced adenoma is less than ??5.3% (negative predictive value 94.7%). These data are based on a prospective cross-sectional study of 10,000 individuals at average risk for colorectal cancer who were screened with both Cologuard and colonoscopy. (Sonny Shane al, N Engl J Med 2014;370(14):1286- 1297) The normal value (reference range) for this assay is negative. COLOGUARD RE-SCREENING RECOMMENDATION: Periodic colorectal cancer screening is an important part of preventive healthcare for asymptomatic individuals at average risk for colorectal cancer. ??Following a negative Cologuard result, the [place] [employer] and U.S. Multi-Society Task Force screening guidelines recommend a Cologuard re-screening interval of 3 years. References: [place] [employer] Guideline for Colorectal Cancer Screening: https://www.cancer.org/cancer/cmqqf-ihksht-huohjn/aoinngfrs-plohswydh-votgmmi/ac s-rec ommendations.html.; Mark KAUR, Diana MARSH, [place] JoK, Colorectal Cancer Screening: Recommendations for Physicians and Patients from the U.S. Multi-Society Task Force on Colorectal Cancer Screening , Am J Gastroenterology 2017; 112:1148-9845. TEST DESCRIPTION: Composite algorithmic analysis of stool DNA-biomarkers with hemoglobin immunoassay. ?? Quantitative values of individual biomarkers are not reportable and are not associated with individual biomarker result reference ranges. Cologuard is intended for colorectal cancer screening of adults of either sex, 45 years or older, who are at average-risk for colorectal cancer (CRC). Cologuard has been approved for use by the U.S. FDA. The performance of Cologuard was established in a cross sectional study of average-risk adults aged 50-84. Cologuard performance in patients ages 45 to 49 years was estimated by sub-group analysis of near-age groups. Colonoscopies performed for a positive result may find as the most clinically significant lesion: colorectal cancer [4.0%], advanced adenoma (including sessile serrated polyps greater than or equal to 1cm diameter) [20%] or non- advanced adenoma [31%]; or no colorectal neoplasia [45%]. These estimates are derived from a prospective cross-sectional screening study of 10,000 individuals at average risk for colorectal cancer who were screened with both Cologuard and colonoscopy. (Sonny Shane al, N Engl J Med 2014;370(14):3109-8685.) Cologuard may produce a false negative or false positive result (no colorectal cancer or precancerous polyp present at colonoscopy follow up). A negative Cologuard test result does not guarantee the absence of CRC or advanced adenoma (pre-cancer). The current Cologuard screening interval is every 3 years. ([place] [employer] and U.S. Multi-Society Task Force). Cologuard performance data in a 10,000 patient pivotal study using colonoscopy as the reference method can be accessed at the following location: www.[employer]ell[employer]/results. Additional description of the Cologuard test process, warnings and precautions can be found at www.[employer]rd.Planitax. Stool specimen (specimen) 03/20/2024 10:00 AM EDT 03/21/2024 11:00 AM EDT Marguerite Kaba [facility]ST[facility] CURLY REYES Final Result [facility] (CLIA #:[id number]) [place] [address], * HIV-1 RNA, Quantitative, PCR with Reflex to Genotype (03/11/2023 11:31 AM EDT) HIV 1 RNA, QN PCR Not Detected Copies/mL [facility] [place] HIV 1 RNA, QN PCR Not Detected Log cps/mL [facility] Comment: Reference Range: ?Not Detected ? copies/mL ?Not Detected Log copies/mL The test was performed using Real-Time Polymerase Chain Reaction. ? Reportable Range: 20 copies/mL to 10,000,000 copies/mL (1.30 Log copies/mL to 7.00 Log copies/mL). 03/11/2023 11:3 1 AM EDT 03/11/2023 11:32 AM EDT Narrative [facility] - 03/15/2023 4:29 PM EDT FASTING:YES FASTING: YES Result [facility] us Marguerite Kaba [facility] BLOOD ORDERABLES Final Res ult Performing Organization Address City/State/[facility] Co de Phone Number [facility] [address], [place] [address] [facility] [address] [facility] [place] [phone] * Hepatitis C Antibody with Reflex to HCV, RNA, Quantitative, Real-Time PCR (03/11/2023 11:31 AM EDT) Hepatitis C Antibody NON-REACT DONTAE NON-REACT DONTAE [facility] [place] Index 0.37 <1.00 [facility] Comment: HCV antibody was non-reactive. There is no laboratory evidence of HCV infection. In most cases, no further action is required. However, if recent HCV exposure is suspected, a test for HCV RNA (test code 27335) is suggested. For additional information please refer to http://education.Health Plan One.Planitax/faq/VSL16x8 (This link is being provided for informational/ educational purposes only.) Blood Venous blood specimen / Unknown 03/11/2023 11:31 AM EDT 03/11/2023 11:32 AM EDT Narrative [facility] - 03/15/2023 4:29 PM EDT FASTING:YES FASTING: YES us Marguerite Kaba [facility] BLOOD ORDERABLES Final Res ult [facility] [address] [facility] [place] [address] [facility] [address] [place] [address] * THINPREP PAP AND HPV mRNA E6/E7 REFLEX HPV 16,18/45 (01/05/2021 3:49 PM EST) Clinical Information: None given [facility] COMMENT SEE COMMENT [facility] Comment: EXPLANATORY NOTE: ? The Pap is a screening test for cervical cancer. It is ?? not a diagnostic test and is subject to false negative ?? and false positive results. It is most reliable when a ?? satisfactory sample, regularly obtained, is submitted ?? with relevant clinical findings and history, and when ?? the Pap result is evaluated along with historic and ?? current clinical information. ?? Automobile Insurance Claim Examiner: SEE COMMENT [facility] Comment: BLC,CT(ASCP) CT screening location: [address] ??[address] HPV nRNA E6/E7 Not Detected Not Detected [facility] Comment: Methodology: Employee Services Manager-Mediated Amplification This assay detects E6/E7 viral messenger RNA (mRNA) from 14 high-risk HPV types (16,18,31,33,35,39,45,51,52,56,58,59,66,68). ? The analytical performance characteristics of this assay have been determined by [facility]. The modifications have not been cleared or approved by the FDA. This assay has been validated pursuant to the CLIA regulations and is used for clinical purposes. ?? For additional information, please refer to http://education.Health Plan One.Planitax/faq/WJM763j7 (This link if provided for information/ educational purposes only.) Interpretation/Re sult: Negative for intraepithelial lesion or malignancy. [facility] LMP: NONE GIVEN [facility] Prev. BX: NONE GIVEN [facility] Prev. PAP: NONE GIVEN [facility] Review Automobile Insurance Claim Examiner: SEE COMMENT [facility] Comment: MSM, CT(ASCP) CT screening location: [address] ??[address] SOURCE: None given [facility] Statement Of Adequacy: SEE COMMENT [facility] Comment: Satisfactory for evaluation. Endocervical/transformation zone component present. 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
--- OUTSIDE RECORDS SUMMARY | 2024-11-25 17:30 | XMS_ITS | Data Portability ---
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 Plan of Treatment Reminders Order Date Submit Date Provider Last Modified By Organization Details Last Modified Time Details Appointments None recorded. Lab None recorded. Referral None recorded. Procedures None recorded. Surgeries None recorded. Imaging MRI, knee, w/o contrast - lmt 2023 [facility] ([facility]), [address] [facility], [place], [address], 4 10:34:05 XR, knee, 4 or more view - room 210 bilateral knee 2023 [facility], [address], [place], [address], 4 10:34:05 Medication Orders None recorded. Patient TargetsNo targets recorded. Patient InstructionsNo instructions recorded. Reason for Referral None Reported. Results Created Date Observation Date Name Description Value Unit Range Abnormal Flag Note LastModifiedBy Organization Detail LastModifiedTime 08/28/20 24 08/28/2024 XR, knee, 4 or more view [email or web address] ?Encry pted=s hAaTro YD8dLq bEUv6g %2BXZw aYqtaq 0bqfl% 2Fg9IQ a4ajBk vP9nXo QUaueC m3YtLR FvZlgJ JJ8mAn HZtai3 5n1220 AC0Kqa HyAWKK uKiQtr MwF INTERFACE [facility] [address], [place], [address], 08/28/2024 13:31:16 08/28/20 24 08/28/2024 XR, knee, 4 or more view [email or web address] ?Encry pted=s hAaTro YD8dLq bEUv6g %2BXZw aYqtaq 0bqfl% 2Fg9IQ a4ajBk vP9nXo QUaueC m3YtLR FvZlgJ JJ8mAn HZtai3 0h7270 AC0Kqa HyAWKK uKiQtr MwF INTERFACE [facility] [address], [place], [address], 08/28/2024 13:31:18 09/10/20 24 09/09/2024 MRI, knee, w/o contr ast [facility] Access ion Number : [id number] Patien t Name: Chiqui Burger Record Number : [id number] Date of : 1969 Date of Exam: 2023 Referr ing Physic ynes: [facility] [address], [address] [place] [address] Exam: MR Knee (C-) CPT 05329 - Right Room Descri ption: [facility] Pion 3T MRI right knee Histor y: Pain Findin gs: Medial menisc us is intact Latera l menisc us is intact Nondis placed subcho ndral fractu res with marrow edema in the latera l femora l condyl e. The ACL and PCL are intact The MCL is intact The LCL comple x includ ing the biceps femori s, poplit eus and fibula r collat eral ligame nts are intact The medial and latera l patell ar retina cula are intact Fissur e within latera l patell ar facet cartil age. The extens or mechan ism is intact . Impres michael: Nondis placed subcho ndral fractu res with marrow edema in the latera l femora l condyl e. No eviden ce of menisc us or ligame nt tear. A Signif icant action able findin g will be commun icated to the orderi ng or respon sible provid er by the medica l record s depart ment. Receip t of this commun icatio n by the respon sible or orderi ng provid er will be docume nted in [facility] onnect Action able Findin erin herr e ID [id number] 7. Electr onical ly Signed By: Ernestine Tavarez MD [email or web address] [facility] ([facility]) [address], [place], [address], 09/22/2024 09:18:15 Result Notes None recorded. Problems Name Problem SNOMED Code Status Onset Date Resolution Date Notes Provider Name and Address Organization Details Recorded Time Primary gonarthrosi s, bilateral 053904819 Active 2023 Mauri Ellis PA-C [address], [place], [address], [facility] 4 12:51:43 Tear of lateral meniscus of knee 167367616 Active 2023 Mauri Ellis PA-C [address], [facility] [place], [address], [facility] - [facility] 4 13:36:31 Derangement of right knee 3864800199892 9109 Active 2023 Mauri Ellis PA-C [address], [place], [address], [facility] - [facility] 4 13:36:39 Fracture of femur 88552204 Active 2023 Mauri Ellis PA-C [address], [place], [address], [facility] 4 06:34:41 Problem Notes None recorded. Procedures Surgical History None recorded. Imaging Results Imaging Date Name Status LastModified by Organiz ation Details LastModified Time 08/28/2024 XR, knee, 4 or more view completed [facility] [address], [place], [address], 08/28/2024 13:31:16 08/28/2024 XR, knee, 4 or more view completed [facility] [address], [place], [address], 08/28/2024 13:31:18 09/09/2024 MRI, knee, w/o contrast completed [id number] [facility] ([facility]) [address], [place], [address], 09/22/2024 09:18:15 Procedure Notes None recorded. Medical Equipment None Reported. Allergies No known drug allergies Medications Name Sig Start Date Stop Date Status Note LastModified by Organization Details LastModified Time albuterol sulfate 2.5 mg/3 mL (0.083 %) solution for nebulization INHALE 1 VIAL VIA NEBULIZER 4 TIMES A DAY NEEDED active Not Available Not Available No t Available cetirizine 10 mg tablet TAKE 1 TABLET BY MOUTH EVERY DAY AT BEDTIME NEEDED active Not Available Not Available No t Available ibuprofen 800 mg tablet TAKE 1 TABLET BY MOUTH 2 TIMES DAILY. active Not Available Not Available No t Available nicotine (polacrilex) 2 mg gum PLEASE SEE ATTACHED FOR DETAILED DIRECTIONS active Not Available Not Available N ot Available tizanidine 4 mg tablet TAKE 1 TABLET BY MOUTH EVERY 8 HOURS IF NEEDED FOR MUSCLE SPASMS. active Not Available Not Available No t Available sertraline 100 mg tablet TAKE 1 TABLET BY MOUTH DAILY FOR DEPRESSION AND ANXIETY. STOP TAKING IF ANY MANIC SYMPTOMS MANIFEST active Not Available Not Available No t Available acetaminophe n 500 mg tablet TAKE 2 TABLETS BY MOUTH EVERY 8 HOURS NEEDED FOR PAIN active Not Available Not Available No t Available acetaminophe n ER 650 mg tablet,exten ded release TAKE 1 TABLET BY MOUTH EVERY 8 HOURS NEEDED FOR PAIN active Not Available Not Available No t Available meloxicam 7.5 mg tablet TAKE 1 TABLET BY MOUTH TWICE A DAY AFTER MEALS active Not Available Not Available No t Available omeprazole 20 mg capsule,arabella yed release TAKE 1 CAPSULE (20 MG) BY MOUTH ONCE PER DAY. active Not Available Not Available No t Available hydroxyzine HCl 25 mg tablet TAKE 1 TABLET BY MOUTH TWICE A DAY active Not Available Not Available No t Available hydrochlorot hiazide 25 mg tablet TAKE 1 TABLET BY MOUTH EVERY DAY IN THE MORNING active Not Available Not Available No t Available sertraline 50 mg tablet TAKE 1 TABLET BY MOUTH EVERY DAY active Not Available Not Available No t Available Ventolin HFA 90 mcg/actuatio n aerosol inhaler TAKE 2 PUFFS BY MOUTH EVERY 4 TO 6 HOURS NEEDED active Not Available Not Available No t Available magnesium 250 mg (as magnesium oxide) tablet TAKE 1 TABLET (250 MG) BY MOUTH AT BEDTIME active Not Available Not Available No t Available rosuvastatin 20 mg tablet TAKE 1 TABLET BY MOUTH AT BEDTIME active Not Available Not Available No t Available Klor-Con M20 mEq tablet,exten ded release TAKE 1 TABLET BY MOUTH TWICE A DAY FOR 3 DAYS active Not Available Not Available No t Available Symbicort 160 mcg-4.5 mcg/actuatio n HFA aerosol inhaler INHALE 2 PUFFS BY MOUTH 2 TIMES A DAY active Not Available Not Available Not Available diclofenac 1 % topical gel PLEASE SEE ATTACHED FOR DETAILED DIRECTIONS active Not Available Not Available N ot Available Vitals Date Recorded Body height Body mass index (BMI) Body weight Provider Name and Address Organization Details Last Updated DateTime 08/28/2024 162.56 cm 25.7 kg/m2 91462.86 g Mauri Ellis PA-C [address] [place] [address], [address], [facility] 08/28/2024 13:12:26 Date Recorded Body height Body mass index (BMI) Body weight Provider Name and Address Organization Details Last Updated DateTime 09/23/2024 162.56 cm 25.7 kg/m2 55787.86 g Mauri Ellis PA-C [address] [place] [address], [address], [facility] 09/23/2024 11:59:48 Social History None recorded. Functional Status None recorded. Mental Status None recorded. Family History Nothing Reported. Medical History Condition Response Headaches Y Hypertension Y Sleep Apnea Y Cholesterol Y Asthma Y Gynecological HistoryNo gynecological history recorded. Obstetrics History GPAL:G 0 P 0 0 0 0 Past Encounters Encounter ID Performer Location Encounter Start Date Encounter Closed Date Diagnosis/Indication Diagnosis SNOMED-CT Code Diagnosis ICD10 Code Diagnosis Note [id number] Mauri Ellis PA-C [address] [place] [address] 08/28/2024 12:53:04 09/17/2024 10:34:05 Primary gonarthrosis, bilateral 511832194 M17.0 Tear of la teral meniscus of knee 517290177 S83.271A Derangemen t of right knee 0520275045 2589909 M23.91 [id number] Mauri Ellis PA-C [address] [place] [address] 09/23/2024 11:50:16 10/13/2024 09:41:36 Fracture of femur 91873853 M84.451D Health Concerns Section Related Observation LastModified by Organization Detai ls LastModified Time None Recorded Concern Status LastModified by Organization Details LastModified Time None Recorded Advance Directives Directive None Recorded Payers Encounter Date Sequence Insurance Name Policy Number Policy Saez Covered Member ID Saez Member ID Guarantor Name 08/28/2024 1 [place] Isabelle Burger [id number] Isabelle Burger 09/23/2024 1 [place] Isabelle Burger [id number] Isabelle Burger Notes Date Note Type Note Provider Name and Address Organization Details Recorded Time 08/28/2024 text/html I am seeing the patient today under the supervision of Dr. Kendrick who was available but who did not see the patient. HPI: Patient is a 54-year-old female who comes in today for evaluation reporting intermittent pain and discomfort with weightbearing related activities predominantly involving the lateral aspect of the right knee. She reports a twisting injury recently feels like something is mechanically locking and catching in the right knee. She has been treated 2 years ago with conservative treatment at that time included physical therapy anti-inflammatories. Frustrated and concerned by the progressive nature of her symptoms and lack of improvement she comes in today wanting to discuss treatment options. PMH/PSH/MEDS/ALL/FMH/ SOC HX/ ROS: All reviewed in detail per my medical intake sheet General Exam: Vitals signs as noted below, antalgic gait noted. Mental Status: Alert and oriented x3. Normal insight, affect, and grooming. DAIRY CONSULTANT: Gross motor coordination is intact. No spasticity or clonus noted. Extremities: Calves are soft and nontender. Skin on lower extremities is intact. Palpable pedal pulses bilaterally. Orthopedic Exam: Examination of the left and right knee demonstrates restricted range of motion good anterior-posterior stability no laxity valgus or varus stressing. Exquisite lateral joint line tenderness with patellofemoral crepitus noted, 1+ effusion, 4/5 strength. X-rays report: 4 views ordered and independently reviewed previously at [facility] of the left and right knees findings include: Good joint space preservation mild patellofemoral Baja with lateral patella tilt. Assessment: Acute lateral meniscus tear right knee with mild patellofemoral chondrosis. Plan: The patient was thoroughly counseled today regarding their knee condition, its natural history, and the treatment options both nonoperative and operative. Considering the previous course of conservative treatment has not completely alleviated her symptoms and ongoing pain and discomfort with limitations with functional ADLs MRI scan was ordered to rule out lateral meniscus tear of the right knee. All questions otherwise answered to her satisfaction patient check back for follow-up evaluation our office once MRI is complete. [employer] speech recognition supervisor kennel software was used to create portions of this document. An attempt at proofreading has been made to minimize errors. Please call for corrections Mauri Ellis PA-C [address] [place] [address] [facility], [place], [address], [facility] - [facility] 08/28/2024 14:09:32 09/23/2024 text/html I am seeing the patient today under the supervision of Dr. Renee who was available but who did not see the patient. HPI: Patient is a 54-year-old female who comes in today for evaluation reporting intermittent pain and discomfort with weightbearing related activities predominantly involving the lateral aspect of the right knee. She reports a twisting injury recently feels like something is mechanically locking and catching in the right knee. She has been treated 2 years ago with conservative treatment at that time included physical therapy anti-inflammatories. Frustrated and concerned by the progressive nature of her symptoms and lack of improvement she comes in today wanting to discuss treatment options. Interval history: Patient returns today for follow-up evaluation to review MRI findings regarding her right knee. She continues to have intermittent pain discomfort weightbearing activity. MRI report:Independently reviewed today findings include no medial meniscus tear or lateral meniscus tear, intact cruciate and collateral ligaments, reactive bone edema lateral compartment consistent with insufficiency fracture. Orthopedic Exam: Examination of the left and right knee demonstrates restricted range of motion good anterior-posterior stability no laxity valgus or varus stressing. Exquisite lateral joint line tenderness with patellofemoral crepitus noted, 1+ effusion, 4/5 strength. X-rays report: 4 views ordered and independently reviewed previously at [facility] of the left and right knees findings include: Good joint space preservation mild patellofemoral Baja with lateral patella tilt. 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 She understands knee arthroscopy is unlikely to provide substantial benefit and ongoing conservative treatment with protected weightbearing status is critical for minimizing the risk of this collapsing to progressive osteoarthritis. [facility] speech recognition supervisor kennel software was used to create portions of this document. An attempt at proofreading has been made to minimize errors. Please call for corrections Mauri Ellis PA-C [address] [place] [address], [place], [address], [facility] - [facility] 09/23/2024 12:51:21 OBGyn Episode No OBEpisode recorded.
--- OUTSIDE RECORDS SUMMARY | 2024-11-25 17:30 | XMS_ITS | Clinical Summary ---
Author Organization [employer] 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 Name Role Phone Unavailable Primary Care Provider Unavailabl e Social History Tobacco Use Types Packs/Day Years Used Date Smoking Tobacco: Never Assessed Sex and Gender Information Value Date Recorded Sex Assigned at Not on file Gender Identity Not on file Sexual Orientation Not on file Plan of Treatment Health Maintenance Due Date Last Done Comments Breast Cancer Screening 1969 DTaP,Tdap,and Td Vaccines (1 - Tdap) 1988 Hepatitis B Vaccines (1 of 3 - 19+ 3-dose series) 1988 Cervical Cancer Screening: P ap Smear 1990 Zoster Vaccines (1 of 2) 2019 COVID-19 Vaccine (1 - 2023-2 5 season) 2024 Influenza Vaccine (#1) 2024 HIB Vaccines Aged Out No longer eligi ble based on patient's age to complete this topic HPV Vaccines Aged Out No longer eligi ble based on patient's age to complete this topic Hepatitis A Vaccines Aged Out No long er eligible based on patient's age to complete this topic IPV Vaccines Aged Out No longer eligi ble based on patient's age to complete this topic MMR Vaccines Aged Out No longer eligi ble based on patient's age to complete this topic Meningococcal ACWY Vaccine Aged Out N o longer eligible based on patient's age to complete this topic Pneumococcal Vaccine: Pediat rics (0 to 5 Years) and At-Risk Patients (6 to 64 Years) Aged Out No longer eligible b ased on patient's age to complete this topic RSV Immunization Patients Un claire 20 months Aged Out No longer eligible b ased on patient's age to complete this topic Varicella Vaccines Aged Out No longer eligible based on patient's age to complete this topic
== END 2024-11-25 15:00 | disposition home or self-care (01) ==
LOC: HO.CT 14:59
PROVIDERS: PCP Registered Nurse; Visit Provider Hospitalist
DX: R91.8 Other nonspecific abnormal finding of lung field (principal)
CPT/HCPCS: 71250

== ENCOUNTER → 2024-11-25 15:00 | Outpatient (BNV) | payer MEDICAID, SELFPAY | PROVIDERS: PCP Registered Nurse; Visit Provider Specialist | DX: R91.8 Other nonspecific abnormal finding of lung field (principal) | CPT/HCPCS: 71250 ==

== ENCOUNTER 2025-01-18 14:51 | Outpatient (AMB) | payer MEDICAID, SELFPAY ==
[2025-01-18 15:13] VITALS: BP 140/88; PULSE 76; O2SAT 98; BMI 26.1
--- NOTE | 2025-01-18 15:13 | A.OFFVIS_ITS ---
Vital Signs 01/18/25 15:13 Height 5 ft 4 in Weight 152 lb 1.903 oz BMI 26.1 BP 140/88 H Blood Pressure Location Lt brachial Position Sitting Pulse 76 Pulse Source Pulse Oximeter Pulse Oximetry (%) 98 Oxygen Delivery Method Room Air Intake Visit Reasons: Pulmonary Nodules/CT Follow Up Allergies No Known Allergies [No Known Allergies*] Allergy (Verified 01/18/25 15:16) HPI Comments Details: The patient is a 54-year-old woman with a known history of tobacco dependency, asthma who apparently was in her usual state health until recently she started developing a upper respiratory illness. The patient subsequently had a worsening cough and also complaint of chest and back discomfort. Denies any pleuritic component. She was evaluated and [facility]. There she had a chest x- ray without any acute disease. Subsequently she did follow-up with primary care doctor. She was found to have normal lung findings and she was referred to a CT scan of the chest. I personally viewed the CT scan with the patient. She does have some nodular densities noted in the upper lung zones and also has a pulmonary nodule measuring 4-5 mm in the left lower lobe lung area. The patient does smoke cigarettes and therefore she is high risk for malignancy. She actually qualifies for the lung cancer screening program that will be helpful for her once we confirm that this her stable nodular densities. In the meantime she continues to have the chest discomfort. At this point is appears that is not pleuritic in no sure most likely more to be musculoskeletal. Based on the CT scan nothing significant to explain the degree of discomfort that she has good she was provided with ibuprofen for the pain. I did offer her additio nal anti-inflammatory such as a course of prednisone and she can also consider Lidoderm patch to the area. 10/19/2021 the patient is here for a pulmonary follow-up visit. The patient continues to have significant right-sided back discomfort. Although it is reproducible. She is concerned because feels is related to the findings on the CT scan. I did try to reassure her that it appears that her back discomfort appears to be more musculoskeletal and the changes on her CT scan are primarily in the upper lung zones and not where she is having discomfort. She did recently have a CT scan of the chest that was repeated and was compared to the CT scan she had in the summer 2020. It appears that the nodular densities stable although an area of does measure about a cm in size. Therefore is not on reasonable to check it again in 6 months and then after will be a good candidate for the lung cancer screening program. The patient did try the Nicotrol inhaler which appears to be helpful cutting down although she is still smoking. the patient does have a rescue inhaler that she can use as needed. Will follow up in 6 months after her next CT scan. 04/19/2022 the patient is here for a pulmonary follow-up visit. She continues to have her back and neck discomfort. She also has intermittent chest discomfort. It is reproducible. Appears to be more musculoskeletal. The patient did have a repeat CT scan of the chest demonstrating stable pulmonary nodules in addition to a ground-glass nodular density. The patient is very concerned about the nodular densities. in the meantime she continues smoking cigarettes. She has been able to cut down to 1 cigarette a day. Explained to the patient that she needs to stop completely. She also has been complaining reflux disease and heartburn. We did talk about the reflux diet. She had been taking Prilosec in the past but she is no longer taking it. Also her a prescription for her to restart the medicine specially with her chest disc omfort. Will plan to follow-up in 6 months with a repeat CT scan. If any worsening symptoms she is to call for an earlier evaluation. 11/19/2022 the patient is here for a pulmonary follow-up visit. The patient complains of cough. Typically productive in nature. Worse in the morning. Is likely a smoker's cough. The patient still struggling with smoking. We did try multiple nicotine products including the Nicotrol inhaler and also tried the patch. Will go ahead and send her some neck rate gum with hopes that she can not take ago when she is having a craving. She knows not to take any other nicotine products while using the down. In the meantime the patient did have a CT scan of the chest personally by me. Patient does have pulmonary nodules some that are ground-glass in some better solid in nature. They have not changed when compared to her previous CT scan. She also had some areas of ground-glass opacity which could be a degree of interstitial lung disease from smoking. The patient understands that the inflammation can get worse if she continues to smoke cigarettes. The patient had been doing Advair. However, she does not like the powder. Does not agree with her. Therefore will switch over to Symbicort that she can use instead. 11/14/2023 the patient is here for pulmonary follow-up visit. The patient overall has been doing about the same. She is still smoking unfortunately. She states she gets bored and she starts smoking and she also gets anxious and starts smoking. We did talk about different alternatives she can consider. She will look into them. In the meantime the patient did have a CT scan of the chest that was personally by me. It appears that she still has a ground-glass nodular density measurement 1.1 cm in size. We did evaluated together and looked at the images and it is indeed irregular. In the size is in the intermediate size. It was measured before 1.1 x 1.0 cm in his measuring now 1.1 x 1.1 cm which she is slight change. Therefore, will plan to repeat the CT scan in a year's time. She continues use her respiratory therapy with good effect. The patient was also diagnosed sleep apnea she was given a CPAP. I was able to download the data she has not been using it because she feels the pressures are too high. I was able to adjust her pressures from 4-16 to 48 to see if this is effective for her in order for her to be able to tolerated. She will bring her CPAP to the next visit in 4-6 months. 01/18/2025 the patient is here for a pulmonary follow-up visit. The patient overall has been doing well. She unfortunately has lost a P people in her life including her brother and her knees. She has been grieving the loss. At least from a health status she is doing okay. She denies any chest pains or shortness of breath. She was able to quit smoking. She still smokes some weed at times especially for her to go to bed at nighttime. But she knows she will needs to quit that as well. She did have a CT scan in 11/23/2024 which I personally reviewed in did compared to a CT scan from 2023 that she had elsewhere. It looks like she still has that irregular ground-glass nodular density in the right upper lobe measuring 1.1 cm in size. Still this area could be related to an underlying smoldering process or a premalignant process so therefore will continue to follow in a year's time. In addition to that she continues using CPAP. CPAP therapy has been affecting beneficial and she does use it every night. She understands she needs use it 4 hours a night. The patient will continue to use it and will continue with current respiratory therapy. She will return in a year's time if she has any issues before that she will call for an earlier assessment. 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 Review of Systems Const Reports daytime sleepiness, Reports difficulty sleeping and Denies night sweats ENT Denies change in voice, Denies lip swelling, Denies mouth pain, Reports nasal congestion, Reports nasal discharge, Reports neck pain and Denies tongue swelling Card Denies chest pain Resp Reports chest congestion, Reports cough and Denies hemoptysis GI Denies abdominal pain Musc Reports back pain, Reports myalgias and Reports neck pain Neuro Denies Neuro-related abnormal movements Psych Denies no additional complaints Joshua/Lymph Denies easy bleeding and Denies lymphadenopathy Aller/Immun Denies lip swelling and Denies tongue swelling Physical Exam Vital Signs: Last Vital Signs Pulse 76 01/18/25 15:13 BP 140/88 H 01/18/25 15:13 Pulse Ox 98 01/18/25 15:13 Oxygen Delivery Method Room Air 01/18/25 15:13 BMI result Body Mass Index 26.1 Const General: alert HEENT General nose exam: Abnormal external nose present and Nasal discharge present Eyes Pupils: Equal, round and reactive pupils present Neck Neck: Yes normal visual inspection, Yes full ROM and Yes no lymphadenopathy Chest Chest palpation & inspection: normal inspection of the chest Resp Auscultation: no crackles, no rales, no rhonchi, no wheezes and diminished lung sounds Cardio Rate: regular rate Rhythm: regular rhythm Heart sounds: S1 normal heart sound present and S2 normal heart sound present GI Palpation (GI): Soft to palpation and nontender Auscultation: normal bowel sounds Back/Spine/Pelvis Back: back tenderness Thoracic/Lumbar Spine: paraspinal muscle tenderness Skin General skin exam: rashes and/or lesions noted Neuro Cranial nerves: Yes Equal, round and reactive pupils present Quality Reporting (2019) Adult ([facility] 13812/26/68) Smoking risk assessment performed?: Yes Patient Tobacco Use Status: Former Tobacco user Assessment & Plan Assessment & Plan (1) Pulmonary nodules: Code(s): R91.8 - Other nonspecific abnormal finding of lung field Category: Medical (2) Tobacco dependence: Code(s): F17.200 - Nicotine dependence, unspecified, uncomplicated Category: Medical (3) GARETT on CPAP: Code(s): G47.33 - Obstructive sleep apnea (adult) (pediatric) Category: Medical Plan JOJO as needed continue Symbicort BID tobacco cessation continue APAP APAP 4-8 ramp 4. Requesting F40 mask medium repeat CT scan of the chest in 1 year F/U 12 months Orders: Orders CT chest wo IV con 11 Months R91.8 - Other nonspecific abnormal finding of lung field Coding Level of Care Code Est Pt Level 4 (09660) Diagnoses Pulmonary nodules R91.8 Tobacco dependence F17.200 GARETT on CPAP G47.33 Time Spent (min) 17
--- OUTSIDE RECORDS SUMMARY | 2025-01-18 17:25 | XMS_ITS | Encounter Summary ---
Author Organization [employer] Address [address] [place] [address] [address] [place] [address] Care Team Providers Care Reinforcing Steel Worker Name Role Phone Marguerite Kaba Primary Care Provider [phone] Reason for Visit * Reason Onset Date Comments r/s appt 01/18/2023 Encounter Details Date Type Department Care Team ([facility] st Contact Info) Description 01/18/2023 Telephone [facility] MEDICINE [address] [place] [address] Marguerite Kaba FNP [address] [place] [address] r/s appt Social History Tobacco Use Types [...] Physical on 02/04/2023. Please contact pt at [phone] documented in this encounter Plan of Treatment Upcoming Encounters Date Type Department Care Team ([facility] st Contact Info) Description 03/05/2025 1:45 PM EDT Office Visit [facility] [address] [place] [address] Marguerite Kaba FNP [address] [place] [address] documented as of this encounter Visit Diagnoses Not on filedocumented in this encounter Additional Health Concerns Assessment Noted Time PHQ-9 Depression Total Score: 0 12/21/19 23 3:46 PM EST documented as of this encounter Care Teams Reinforcing Steel Worker Relationship Specialty Start Date End Date Marguerite Kaba FNP [address] [place] [address] PCP - General Family Medicine 10/18/22 Liz Nieves Holistic Health PractitionerCar Sander 04/08/24 documented as of this encounter
--- OUTSIDE RECORDS SUMMARY | 2025-01-18 17:26 | XMS_ITS | Encounter Summary ---
Author Organization [employer] Address [address] [facility] [address] [place] [address] Care Team Providers Care Drier Belt Conveyor Name Role Phone Marguerite Kaba REMY Primary Care Provider [phone] Encounter Details Date Type Department Care Team ([facility] st Contact Info) Description 01/15/2025 Population Health Risk Score [facility] (C3) Department [address] [address] Provider, Population Health Generic Social History Tobacco Use Types Packs/Day Years [...] Recorded Patient Health Questionnaire-2 Score 5 03/09/2024 Internet Access Answer Date Recorded Internet Access Q1 Yes 12/07/2024 Internet Access Q2 Not on file 12/07/2024 Comments No Sex and Gender Information Value Date Recorded Sex Assigned at Female 09/03/2022 10:15 AM EDT Legal Sex Female 10:15 AM EDT Gender Identity Female 09/03/2022 10:15 AM EDT Sexual Orientation Choose not to disclose 2021 10:15 AM EDT documented as of this encounter Plan of Treatment Upcoming Encounters Date Type Department Care Team (Late st Contact Info) Description 03/05/2025 1:45 PM EDT Office Visit [facility] [address] [place] [address] Marguerite Kaba FNP [address] [place] [address] documented as of this encounter Visit Diagnoses Not on filedocumented in this encounter Additional Health Concerns Assessment Noted Time PHQ-9 Depression Total Score: 17 024 1:51 PM EDT documented as of this encounter Care Teams Drier Belt Conveyor Relationship Specialty Start Date End Date Marguerite Kaba FNP [address] [place] [address] PCP - General Family Medicine 10/18/22 Liz Nieves Gastrointestinal TechnicianReconciliation Machine Operator 04/08/24 documented as of this encounter
--- OUTSIDE RECORDS SUMMARY | 2025-01-18 17:26 | XMS_ITS | Data Portability ---
Author Organization [employer] George Karimi [facility]and[facility], [facility] Address [address] [place] [address] Care Team Providers Care Ladle Pourer Name Role Phone [facility] Primary Care Provider Assessment No assessment recorded. Plan of Treatment Reminders Order Date Submit Date Provider Last Modified By Organization Details Last Modified Time Details Appointments None recorded. Lab None recorded. Referral None recorded. Procedures None recorded. Surgeries None recorded. Imaging MRI, knee, w/o contrast - lmt 2023 [facility] ([facility]), [address] [facility], [place], [address], 4 10:34:05 XR, knee, 4 or more view - room 210 bilateral knee 2023 [facility], [address], [place], [address], 4 10:34:05 Medication Orders None recorded. Patient TargetsNo targets recorded. Patient InstructionsNo instructions recorded. Reason for Referral None Reported. Results Created Date Observation Date Name Description Value Unit Range Abnormal Flag Note LastModifiedBy Organization Detail LastModifiedTime 08/28/2008/28/2024 XR, knee, 4 or more view [email or web address] ?Encry pted=s hAaTro YD8dLq bEUv6g %2BXZw aYqtaq 0bqfl% 2Fg9IQ a4ajBk vP9nXo QUaueC m3YtLR FvZlgJ JJ8mAn HZtai3 3m8199 AC0Kqa HyAWKK uKiQtr MwF INTERFACE [facility] [address], [place], [address], 08/28/2024 13:31:16 08/28/20 24 08/28/2024 XR, knee, 4 or more view [email or web address] ?Encry pted=s hAaTro YD8dLq bEUv6g %2BXZw aYqtaq 0bqfl% 2Fg9IQ a4ajBk vP9nXo QUaueC m3YtLR FvZlgJ JJ8mAn HZtai3 0p1574 AC0Kqa HyAWKK uKiQtr MwF INTERFACE [facility] [address], [place], [address], 08/28/2024 13:31:18 09/10/20 24 09/09/2024 MRI, knee, w/o contr ast [facility] Access ion Number : [id number] Patien t Name: Chiqui Burger Record Number : [id number] Date of : 1969 Date of Exam: 2023 Referr ing Physic ynes: [facility] [address], [address] [place] [address] Exam: MR Knee (C-) CPT 24729 - Right Room Descri ption: [facility] Pion 3T MRI right knee [...] provid er will be docume nted in [facility] onnect Action able Findin erin herr e [place] [id number] 7. Electr onical ly Signed By: Ernestine Tavarez MD [email or web address] [facility] ([facility]) [address], [place], [address], 09/22/2024 09:18:15 Result Notes None recorded. Problems Name Problem SNOMED Code Status Onset Date Resolution Date Notes Provider Name and Address Organization Details Recorded Time Primary gonarthrosi s, bilateral 263281933 Active 2023 Mauri Elils PA-C [address], [place], [address], [facility] 4 12:51:43 Tear of lateral meniscus of knee 432877273 Active 2023 Mauri Ellis PA-C [address], [facility] [place], [address], [facility] - [facility] 4 13:36:31 Derangement of right knee 0648862046388 9109 Active 2023 Mauri Ellis PA-C [address], [place], [address], [facility] 4 13:36:39 Fracture of femur 55598987 Active 2023 Mauri Ellis PA-C [address], [place], [address], [facility] 4 06:34:41 Problem Notes None recorded. Procedures Surgical History None recorded. Imaging Results Imaging Date Name Status LastModified by Organiz ation Details LastModified Time 08/28/2024 XR, knee, 4 or more view completed [facility] [address], [place], [address], 08/28/2024 13:31:16 08/28/2024 XR, knee, 4 or more view completed INTERFACE [facility] [address], [place], [address], 08/28/2024 13:31:18 09/09/2024 MRI, knee, w/o contrast completed [email or web address] [facility] ([facility]) [address], [place], [address], 09/22/2024 09:18:15 Procedure Notes None recorded. Medical [...] Updated DateTime 08/28/2024 162.56 cm 25.7 kg/m2 63869.86 g Mauri Ellis PA-C [address] [place] [address], [address], [facility] 08/28/2024 13:12:26 Date Recorded Body height Body mass index (BMI) Body weight Provider Name and Address Organization Details Last Updated DateTime 09/23/2024 162.56 cm 25.7 kg/m2 07939.86 g Mauri Ellis PA-C [address] [place] [address], [address], [facility] 09/23/2024 11:59:48 Social History None recorded. Functional Status None recorded. Mental Status None recorded. Family History Nothing Reported. Medical History Condition Response Asthma Y Sleep Apnea Y Headaches Y Hypertension Y Cholesterol Y Gynecological HistoryNo gynecological history recorded. Obstetrics History GPAL:G 0 P 0 0 0 0 Past Encounters Encounter ID Performer Location Encounter Start Date Encounter Closed Date Diagnosis/Indication Diagnosis SNOMED-CT Code Diagnosis ICD10 Code Diagnosis Note [id number] Mauri Ellis PA-C [facility] [address] [place] [address] 08/28/2024 12:53:04 09/17/2024 10:34:05 Primary gonarthrosis, bilateral 470170461 M17.0 Tear of la teral meniscus of knee 061652652 S83.271A Derangemen t of right knee 2144837979 6494312 M23.91 [id number] Mauri Ellis PA-C [facility] [address] [place] [address] 09/23/2024 11:50:16 10/13/2024 09:41:36 Fracture of femur 05921537 M84.451D Health Concerns Section Related Observation LastModified by Organization Detai ls LastModified Time None Recorded Concern Status LastModified by Organization Details LastModified Time None Recorded Advance Directives Directive None Recorded Payers Encounter Date Sequence Insurance Name Policy Number Policy Saez Covered Member ID Saez Member ID Guarantor Name 08/28/2024 1 [place] Isabelle Burger [id number] Isabelle Burger 09/23/2024 1 [place] Isabelle Burger [id number] Isabelle Burger Notes Date Note Type Note [...] oriented x3. Normal insight, affect, and grooming. LICENSED PSYCHOLOGIST DIRECTOR: Gross motor coordination is intact. No spasticity [...] views ordered and independently reviewed previously at [facility] of the left and right knees [...] evaluation our office once MRI is complete. ixigo speech recognition loaders software was used to create portions of this document. An attempt at proofreading has been made to minimize errors. Please call for corrections Mauri Ellis PA-C [address] [place] [address] [address] Formerly named [facility], [place], [address], [facility] 08/28/2024 14:09:32 09/23/2024 text/html I am seeing [...] views ordered and independently reviewed previously at [facility] of the left and right knees [...] risk of this collapsing to progressive osteoarthritis. [facility] speech recognition loaders software was used to create portions of this document. An attempt at proofreading has been made to minimize errors. Please call for corrections Mauri Ellis PA-C [address] [place] [address], [place], [address], [facility] - [facility] 09/23/2024 12:51:21 OBGyn Episode No OBEpisode recorded.
--- OUTSIDE RECORDS SUMMARY | 2025-01-18 17:26 | XMS_ITS | Clinical Summary ---
Author Organization [facility] Address [address] [place] [address] Care Team Providers Care Flame Annealing Machine Operator Name Role Phone Unavailable Primary Care Provider [...] - Td or Tdap) 05/10/2024 014, 03/17/1996 [id number] (3 season) 2024 021, 04/27/2021 Imm-Influenza (#1) 2024 09/07/2013, 0 11/05/2012, 07/21/2011 Alcohol and Drug Screen 11/04/2024 Depression Annual Screen 11/04/2024 Cervical Ablation/Cold-Knife Conization Discontinued Cervical Cryotherapy Discontinued Colposcopy Discontinued Endometrial Biopsy Discontinued Excision/Leep Discontinued HPV Genotyping Discontinued Vaginal Pap Discontinued Vulvoscopy Discontinued [address]
--- OUTSIDE RECORDS SUMMARY | 2025-01-18 17:26 | XMS_ITS | Clinical Summary ---
Author Organization [employer] Address [address] [place] [address] 7 [place] [address] Care Team Providers Care Gunite Mixer Name Role Phone DenisaMarguerite noel REMY Primary Care Provider [phone] Allergies No known active allergies Medications * This document contains information received from the source organization and may not represent a complete record from that organization. hydrOXYzine HCl (Atarax) 50 MG tablet TAKE 1 TABLET BY MOUTH THREE TIMES A DAY 10/03/20 20 Active albuterol (2.5 MG/3ML) 0.083% nebulizer solution inhale 3 milliliter by nebulization route 4 times every day prn as needed 75 mL 3 07/18/20 23 Active cetirizine (ZyrTEC) 10 MG tabletIndicati ons:Seasonal allergic rhinitis, unspecified trigger Take 1 tablet (10 mg) by mouth if needed at bedtime for allergies. 90 tablet 3 10/11/20 23 Active cholecalcifero l (Vitamin D-3) 50 MCG (1999 UT) tablet TAKE 1 TABLET BY MOUTH EVERY MORNING 90 tablet 1 01/13/20 24 Active sertraline (Zoloft) 50 MG tablet Take 50 mg by mouth Once per day. 02/07/20 24 Active Symbicort 160-4.5 MCG/ACT inhaler INHALE 2 PUFFS BY MOUTH 2 TIMES A DAY 01/16/20 24 Active rosuvastatin (Crestor) 20 MG tabletIndicati ons:High blood cholesterol level TAKE 1 TABLET BY MOUTH AT BEDTIME 90 tablet 3 03/13/20 24 Active albuterol (Ventolin HFA) 108 (90 Base) MCG/ACT inhalerIndicat ions:Asthma, unspecified asthma severity, unspecified whether complicated, unspecified whether persistent INHALE 2 PUFFS BY MOUTH EVERY 4 TO 6 HOURS NEEDED 180 g 3 05/15/20 24 Active omeprazole (PriLOSEC) [address] capsule Take 1 capsule (20 mg) by mouth Once per day. 90 capsule 1 07/13/20 24 Active hydrOXYzine HCl (Atarax) 25 MG tablet Take 25 mg by mouth 2 times daily. 04/12/20 24 Active sertraline (Zoloft) 100 MG tablet TAKE 1 TABLET BY MOUTH DAILY FOR DEPRESSION AND ANXIETY. STOP TAKING IF ANY MANIC SYMPTOMS MANIFEST 04/24/20 24 Active Diclofenac Sodium 1 % gelIndications :Acute pain of right knee Apply thin layer by topical route (quantity as directed on package insert) to affected area of pain 3 times daily as needed. 50 g 3 07/17/20 24 Active magnesium 250 MG tabletIndicati ons:Muscle cramps Take 1 tablet (250 mg) by mouth at bedtime. 90 tablet 1 07/17/20 24 Active fexofenadine (Judith) 180 MG tabletIndicati ons:Allergic reaction, initial encounter TAKE 1 TABLET BY MOUTH EVERY DAY NEEDED ALLERGIES 90 tablet 1 09/20/20 24 Active ibuprofen 800 MG tabletIndicati ons:Acute pain of right knee Take 1 tablet (800 mg) by mouth if needed in the morning and at bedtime (pain or fever). 100 tablet 3 10/07/20 24 Active hydroCHLOROthi azide (HYDRODiuril) 25 MG tablet TAKE 1 TABLET BY MOUTH EVERY DAY IN THE MORNING 90 tablet 3 01/05/20 25 Active tiZANidine (Zanaflex) 4 MG tabletIndicati ons:Low back pain at multiple sites TAKE 1 TABLET BY MOUTH EVERY 8 HOURS IF NEEDED FOR MUSCLE SPASMS. 270 tablet 1 01/05/20 25 Active hydroCHLOROthi azide (HYDRODiuril) 25 MG tablet TAKE 1 TABLET BY MOUTH EVERY DAY IN THE MORNING 90 tablet 3 12/15/19 24 025 Discontinued tiZANidine (Zanaflex) 4 MG tabletIndicati ons:Low back pain at multiple sites TAKE 1 TABLET BY MOUTH EVERY 8 HOURS IF NEEDED FOR MUSCLE SPASMS. 270 tablet 1 07/07/20 24 025 Discontinued Active Problems Problem Noted Date Diagnosed Date Chronic pain of right knee 08/30/2024 Overview (08/30/2024): Jul 2024: XR right knee WNL Following with PS&S (last consult Aug 2024) Assessment & Plan (08/30/2024 6:37 PM EDT): -Follow up with Ortho as scheduled -Cont with symptomatic management Subclinical hypothyroidism 03/10/2024 Overview (04/19/2024): Consult with [facility] Endo - Dr. De Jesus Consult Sep [...] smoking cessation resources ?? Continue following with [facility] Assessment & Plan (06/23/2023 7:57 AM EDT): [...] AM EDT): Followed by Dr. Modi - [facility]. Nov 2023: Adjusted CPAP settings from 4-16 to 4-8 Mask: requested F30 12/30/23: Recertification for CPAP signed by PCP Lipoma of scalp 12/19/2022 Overview (06/23/2023): ? ? Lipoma of scalp removed january 2023 at [facility] Assessment & Plan (03/10/2023 8:25 PM EDT): ?? Lipoma of scalp removed january 2023 at [facility] Carpal tunnel syndrome of right wrist 11/10/2022 Assessment & Plan (03/10/2023 8:20 PM EDT): -EMG completed 09/12/22 with the following impression: mild carpal tunnel syndrome on the right -Pt is s/p left carpal tunnel surgery and trigger thumb release -Referred to [facility] specialist for further eval and treatment Nov 2022 Assessment & Plan (11/10/2022 3:17 PM EST): -EMG completed 09/12/22 with the following impression: mild carpal tunnel syndrome on the right -Pt is s/p left carpal tunnel surgery and trigger thumb release -Referral to [facility] specialist for further eval and treatment [...] apply) New/Additional Services needed Off-site services for [facility] Psychopharmacology referral, Behavioral Health Integration Plan Internal Cold handoff internal psychiatric provider , External OP therapy referral , OP psychiatry Referral, Patient Self Plan Patient to utilize skills provided in intervention , Patient to reach out to [facility] team as needed, and Patient to reach [...] Well controlled, using albuterol <2x/week Following with [facility]m (Dr. Modi) due to pleural thickening and nodules. Continue with current regimen: Symbicort BID Albuterol PRN Montelukast 10mg nightly Assessment & Plan (03/10/2024 10:22 AM EDT): Well controlled, using albuterol <2x/week Following with [facility] (Dr. Modi) due to pleural thickening [...] Encounters Date Type Department Care Team Description 01/15/2025 Population [facility] Risk Score [facility] (C3) Department [address] [facility] [address] [place] [address] Provider, Population Health Generic 01/03/2025 Refill [facility] [address] [place] [address] Marguerite Kaba FNP Low back pain at multiple sites 12/30/2024 Patient Outreach [facility] [address] [place] [address] Marguerite Kaba FNP Pre-visit Planning (SDOH screening was completed on 12/07/2024) 12/10/2024 Telephone [facility] [address] [place] [address] Oly Jeter [place] Chart Prep 12/07/2024 Patient Outreach [facility] [address] [place], [place] [phone] Marguerite Kaba FNP Pre-visit Planning (SDOH negative, Tobacco screening negative.) 11/25/2024 Orders Only [facility] External Provider, [facility] 11/19/2024 Travel from Last 3 Months Immunizations Name Administration [...] Description 03/05/2025 1:45 PM EDT Office Visit [facility] [address] [place] [address] Marguerite Kaba, PIECER [address] [place] [address] Health Maintenance Due Date Last Done Comments CT Colonography 1970 Colonoscopy 1969 Dental Oral Exam 1969 Dental Prophylaxis 1969 Dental X-Ray: Bitewings 1969 Dental X-Ray: Full Mouth 1969 FIT 1969 FOBT 1969 Sigmoidoscopy 1969 Alcohol/Substance Use Screening 1981 Hepatitis B Vaccines (1 of 3 - 19+ 3-dose series) 1988 Zoster Vaccines (2 of 2) 02/17/2023 12/23/2022 Pap Smear 01/06/2024 01/05/2021 DTaP/Tdap/Td Vaccines (2 - Td or Tdap) 05/10/2024 05/10/2014, 03/17/1996 Depression Monitoring (PHQ-9) 09/09/2024 03/09/2024, 03/09/2024 Depression Screening 03/09/2025 03/09/2024, 03/09/20 Diabetes: Hemoglobin A1C 08/28/2025 024, 06/28/2023, 03/11/2023, Additional history exists Tobacco Screening 08/28/2025 08/28/2024 COVID-19 Vaccine ( season) 2025 05/18/2021, 04/27/2021 Postponed from 07/05/2024 (Patient Refused) Mammogram 09/22/2025 09/22/2024, 09/04, 09/11/2022, Additional history exists SDOH Screening 12/07/2025 12/07/2024 Cervical Cancer Screening 01/05/2026 HPV/Cotest 01/05/2026 01/05/2021 Colorectal Cancer Screening 03/20/2027 FIT DNA/Cologuard 03/20/2027 03/20/2024 Lipid Panel 08/28/2029 08/28/2024, 05/0 06/2023, 01/05/2022 RSV Patients and Patients Aged 60 years or older (1 - 1-dose 75+ series) 2044 Pneumococcal Vaccine: 50+ Years Completed 11/19/2022, 03/08/2010, 03/08/2010 HIV Screening Completed [...] Procedure Name Priority Date/Time Associated Diagnosis Comments CT CHEST WO CONTRAST Routine 11/27/2024 8:04 AM EST BI MAMMOGRAM SCREENING TOMOSYNTHESIS BILATERAL Routine 09/22/2024 11:35 AM EST HEMOGLOBIN A1C Routine 08/28/2024 2:30 PM EDT [...] routine history and physical examination of adult BASIL HISTORICAL THINPREP PAP AND HPV MRNA E6/E7 REFLEX HPV 16,18/45 Routine 01/05/2021 3:49 PM EST from Last 3 Months or Most Recently Relevant to Health Maintenance Results * CT Chest w/o Contrast (11/27/2024 8:04 AM EST) Anatomical Region Laterality Modality Body, Chest Computed Tomogra phy 11/27/2024 8:04 AM EST Narrative 11/27/2024 8:06 AM EST ? [facility] ?[address] ?[place] [address] ? CT Scan Report ? Signed ? Patient: Isabelle Burger ?MR#: [id number] ?? 153 ? : 1970 ?Acct:[id number] ? Age/Sex: 54 / F ?ADM Date: 11/25/24 ? Loc: HO.CT ? Attending Dr: Foster Modi MD ? Ordering Physician: Foster Modi MD ?? Date of Service: 11/25/24 ?? Procedure(s): CT chest wo IV con ?? Accession Number(s): [id number] ? cc: Marguerite Kaba PIECER; Foster Modi MD ? Report Number: ?? [id number]: Total DLP = ??135.00 mGy-cm ? CLINICAL HISTORY: R91.8 - Other nonspecific abnormal finding of lung field ? CT chest without contrast ? Comparison: None ? Findings: ?? The heart is normal size. ?? The visualized thyroid and mediastinum are unremarkable. ? No consolidation or effusion. ? The visualized upper abdomen is unremarkable. ?? No acute fractures. ? IMPRESSION: ?? 1. Unremarkable chest CT. ? This document has been electronically signed by: Jluis Chadwick MD on ?? 11/27/2024 08:04:51 ? Dictated By: ?Jluis Chadwick MD ? Signed By: ?<Electronically signed by Jluis Chadwick MD in OV> ?11/27/24 08 ? DD/ 0804 ? TD/TT: 11/27/24 0804 ? Sagger Soak: ? Procedure Note Donotkareeninterpreter, Image - 11/27/[address] [address] [address] Scan Report Signed Patient: Isabelle BurgerMR#: [id number] 153 : 1970Acct:[id number] Age/Sex: 54 / FADM Date: 11/25/24 Loc: HO.CT Attending Dr: Foster Modi MD Ordering Physician: Foster Modi MD Date of Service: 11/25/24 Procedure(s): CT chest wo IV con Accession Number(s): [id number] cc: Marguerite Kaba PIECER; Foster Modi MD Report Number: [id number]: Total DLP = 135.00 mGy-cm CLINICAL HISTORY: R91.8 - Other nonspecific abnormal finding of lung field CT chest without contrast Comparison: None Findings: The heart is normal size. The visualized thyroid and mediastinum are unremarkable. No consolidation or effusion. The visualized upper abdomen is unremarkable. No acute fractures. IMPRESSION: 1. Unremarkable chest CT. This document has been electronically signed by: Jluis Chadwick MD on 11/27/2024 08:04:51 Dictated By: Jluis Chadwick MD Signed By: <Electronically signed by Jluis Chadwick MD in OV> 11/27/24805 DD/ 08 TD/TT: 11/27/24 08 Sagger Soak: [facility] External Provider IMG CT PROCEDURES Final Result * BI Mammogram Screening Tomosynthesis Bilateral (09/22/2024 11:35 AM EST) Anatomical Region Laterality Modality Breast Bilateral Mammography 09/22/2024 11:3 5 AM EST Narrative 09/30/2024 8:21 AM EST ? [facility] ? [address] ?[place] [address] ? Mammography Report ? Signed ? Patient: Burger,Isabelle ?MR#: [id number] ?? 153 ? : 1970 ?Acct:[id number] ? Age/Sex: 54 / F ?ADM Date: 09/22/24 ? Loc: HO.MAMMO ? Attending Dr: Marguerite Kaba PIECER ? Ordering Physician: Marguerite Kaba PIECER ?Results: 1Negat ?? dontae ? Date of Service: 09/22/24 ?Follow Up: 1 Year From Orig ?? inal Mammogram ? Procedure(s): MM tomosynthesis screening BI ?? Accession Number(s): [id number] ? cc: Marguerite Kaba PIECER ? EXAMINATION: ?? MM SCREENING DIGITAL BREAST [...] ??Dasia Hull DO ??09/30/2024 08:17 AM EST ? Dictated By: ?Dasia Hull DO ? Signed By: ?<Electronically signed by Dasia Hull, DO in OV> ? 09/30/24 0817 ? DD/ 1135 ? TD/TT: 09/22/24 1140 ? Sagger Soak: ? Procedure Note Ilda, Carleen - 09/30/2024 [facility] [address] [place] [address] Mammography Report Signed Patient: Isabelle BurgerMR#: [id number] 153 : 1970Acct:[id number] Age/Sex: 54 / FADM Date: 09/22/24 Loc: HO.MAMMO Attending Dr: Marguerite Kaba PIECER Ordering Physician: Marguerite KabaPResults: 1Negat dontae Date of Service: 09/22/24Follow Up: 1 Year From Orig inal Mammogram Procedure(s): MM tomosynthesis screening BI Accession Number(s): [id number] cc: Marguerite Kaba EXAMINATION: MM SCREENING DIGITAL BREAST TOMOSYNTHESIS, BILATERAL [...] 09/30/24 0817 DD/ 1135 TD/TT: 09/22/24 1140 Sagger Soak: us Marguerite ALBERTO IMG BI PROCEDURES Edited Resul t - Final * (ABNORMAL) Hemoglobin A1c (08/28/2024 2:30 PM EDT) Hemoglobin A1c 6.1(H) <6.0 % [facility] Comment:Hemoglobin A1C Refer ence Range Adults: 4.8 - 6.0 % Non diabetic: < 6.0 % Goal: < 7.0 %Additional Action Suggested: > 8.0 %Note: Hemoglobin A1c results are invalid for patients with abnormal amounts of HbF. Blood transfusions may impact the HbA1c concentration in the patient sample. Estimated Average Glucose 128 mg/dL [facility] Comment:eAG = Estimated ave rage glucose which is %A1C expressed asaverage glucose, using the formula of the U9O-XnyvgfjKgwdior Glucose study (ADAG), Diabetes Care, Vol.31,#8,Jun. 2007 Blood Venous blood specimen / Unknown 08/28/2024 2:30 PM EDT 08/28/2024 5:19 PM EDT us Marguerite ALBERTO LAB BLOOD ORDERABLES Final Res ult [facility] [address] [place] [phone] * (ABNORMAL) Lipid Panel, Standard (08/28/2024 2:30 PM EDT) Triglycerides 366(H) <150 mg/dL [facility] Comment:Desirable Triglyceri de: less than 150 mg/dLBorderline High Triglyceride 150-199 mg/dLHigh Triglyceride: 200-499 mg/dLVery High Triglyceride: greater than or equal to 5OO mg/dL Cholesterol 213(H) <200 mg/dL [facility] Comment:Desirable Cholestero l: less than 200 mg/dLBorderline High Cholesterol: 200-239 mg/dLHigh Cholesterol: greater than 239 mg/dL LDL Cholesterol Calculated 102(H) <100 mg/dL [facility] Comment:Desirable LDL: less than 100 mg/dLNear Optimal/Above Optimal LDL: 110- 129 mg/dLBorderline High LDL: 130-159 mg/dLHigh LDL: 160-189 mg/dLVery High LDL: greater than or equal to 190 mg/dL HDL Cholesterol 38(L) >40 mg/dL [facility] Comment:Desirable HDL: great er than 40 mg/dL Note: This HDL assay may give artificially low results in patients with liver disease. Blood Venous blood specimen / Unknown 08/28/2024 2:30 PM EDT 08/28/2024 5:19 PM EDT us Marguerite Kaba PIECER LAB BLOOD ORDERABLES Final Res ult [facility] [address] [place] [phone] * Cologuard?? colon cancer screening (03/20/2024 10:00 AM EDT) Cologuard Result Negative Negative 03/27/20 10:37 AM EDT [facility] (CLIA #:[id number]) Comment: NEGATIVE TEST RESULT. A negative Cologuard [...] cancer. ??Following a negative Cologuard result, the [place] [employer] Society and U.S. Multi-Society Task Force screening guidelines recommend a Cologuard re-screening interval of 3 years. References: [place] [employer] Guideline for Colorectal Cancer Screening: https://www.cancer.org/cancer/znguv-aoxnju-fufwfs/jpkuvsdls-mzgepjqwe-eehibsb/ac s-rec ommendations.html.; Mark DK, Diana MARSH, [place] JoK, Colorectal Cancer Screening: Recommendations for Physicians and Patients from the U.S. Multi-Society Task Force on Colorectal Cancer Screening , Am J Gastroenterology 2017; 112:2591-1773. TEST DESCRIPTION: Composite algorithmic analysis of stool [...] screened with both Cologuard and colonoscopy. (Sonny Obrien et al, N Engl J Med 2014;370(14):1551-0590.) Cologuard may produce a false negative or false positive result (no colorectal cancer or precancerous polyp present at colonoscopy follow up). A negative Cologuard test result does not guarantee the absence of CRC or advanced adenoma (pre-cancer). The current Cologuard screening interval is every 3 years. ([place] [employer] and U.S. Multi-Society Task Force). Cologuard performance data in a 10,000 patient pivotal study using colonoscopy as the reference method can be accessed at the following location: www.[employer]results. Additional description of the Cologuard test process, warnings and precautions can be found at www.[employer] - The Simple[employer] Fast [employer] Elegant Tablet [employer]. Stool specimen (specimen) 03/20/2024 10:00 AM EDT 03/21/2024 11:00 AM EDT Marguerite aKba [facility] CURLY REYES Final Result [facility] (CLIA #:[id number]) [place] [address], * HIV-1 RNA, Quantitative, PCR with Reflex to Genotype (03/11/2023 11:31 AM EDT) Pathologist [facility] HIV 1 RNA, QN PCR Not Detected Copies/mL [facility] [employer] [facility] HIV 1 RNA, QN PCR Not Detected Log cps/mL [facility] [facility] Comment: Reference Range: ?Not Detected ? copies/mL ?Not Detected Log copies/mL The test was performed using Real-Time Polymerase Chain Reaction. ? Reportable Range: 20 copies/mL to 10,000,000 copies/mL (1.30 Log copies/mL to 7.00 Log copies/mL). 03/11/2023 11:3 1 AM EDT 03/11/2023 11:32 AM EDT Narrative [facility] - 03/15/2023 4:29 PM EDT FASTING:YES FASTING: YES Marguerite Kaba [facility] BLOOD ORDERABLES Final Res ult Performing Organization Address [facility] de Phone Number [facility] [address] [place] [address], [place] [address] [facility]/[place] [address] [facility] [place] [address] * Hepatitis C Antibody with Reflex to HCV, RNA, Quantitative, Real-Time PCR (03/11/2023 11:31 AM EDT) Hepatitis C Antibody NON-REACT DONTAE NON-REACT DONTAE [facility] [place] [facility] Index 0.37 <1.00 [facility] [place] [facility] Comment: HCV antibody was non-reactive. There is no laboratory evidence of HCV infection. In most cases, no further action is required. However, if recent HCV exposure is suspected, a test for HCV RNA (test code 20007) is suggested. For additional information please refer to http://education.Proximiant/faq/VRF52e5 (This link is being provided for informational/ educational purposes only.) Blood Venous blood specimen / Unknown 03/11/2023 11:31 AM EDT 03/11/2023 11:32 AM EDT Narrative [facility] - 03/15/2023 4:29 PM EDT FASTING:YES FASTING: YES Marguerite Kaba [facility] BLOOD ORDERABLES Final Res ult Performing Organization Address [facility] Co de Phone Number [facility] [address] [place] [address], [place] [address] [facility] [place] [employer] [address] [place] [phone] * THINPREP PAP AND HPV mRNA E6/E7 REFLEX HPV 16,18/45 (01/05/2021 3:49 PM EST) Clinical Information: None given [facility] COMMENT SEE COMMENT [facility] [...] historic and ?? current clinical information. ?? System Engineer: SEE COMMENT [facility] Comment: BLC,CT(ASCP) CT screening location: [address] ??[address] HPV nRNA E6/E7 Not Detected Not Detected [facility] Comment: Methodology: Road Mechanic-Mediated Amplification This assay detects E6/E7 viral messenger RNA (mRNA) from 14 high-risk HPV types (16,18,31,33,35,39,45,51,52,56,58,59,66,68). ? The analytical performance characteristics of this assay have been determined by [facility]. The modifications have not been cleared or approved by the FDA. This assay has been validated pursuant to the CLIA regulations and is used for clinical purposes. ?? For additional information, please refer to http://education.Proximiant/faq/GQA881f1 (This link if provided for information/ educational purposes only.) Interpretation/Re sult: Negative for intraepithelial lesion or malignancy. [facility] LMP: NONE GIVEN [facility] Prev. BX: NONE GIVEN [facility] Prev. PAP: NONE GIVEN [facility] Review System Engineer: SEE COMMENT [facility] Comment: MSM, CT(ASCP) CT screening location: [address] ??[address] SOURCE: None given [facility] Statement Of Adequacy: SEE COMMENT [facility] Comment: Satisfactory for evaluation. Endocervical/transformation zone component present. Age and/or menstrual status not provided 01/05/2021 3:49 PM EST us Jamaica Cruz MD HISTORICAL/NON ORDERABLE LAB S Final Result [facility] [address] from Last 3 Months or Most Recently Relevant to Health Maintenance Insurance C[facility] MEDICA[facility] STAND ADULT Care Teams Gunite Mixer Relationship Specialty Start Date End Date Marguerite Kaba FNP [address] [place] [address] PCP - General Family Medicine 10/18/22 Liz Nieves Iron Worker ApprenticeGeneral Internal Medicine Doctor 04/08/24
--- OUTSIDE RECORDS SUMMARY | 2025-01-18 17:26 | XMS_ITS | Encounter Summary ---
Author Organization [employer] Address [address] [place] [address] [address] [address] Care Team Providers Care Bookkeeping Clerks Supervisor Name Role Phone Marguerite Kaba Primary Care Provider [phone] Encounter Details Date Type Department Care Team (Late Contact Info) Description 10/22/2022 Telephone [facility] MEDICINE [address] [place], [place] [phone] Marguerite Kaba FNP [address] [place] [address] Social History Tobacco Use Types Packs/Day Years [...] Department Care Team (Late Contact Info) Description 03/05/2025 1:45 PM EDT Office Visit [facility] MED [facility] PEDS [address] [place], [place] [phone] Marguerite Kaba FNP [address] [place] [address] documented as of this encounter Visit Diagnoses Not on filedocumented in this encounter Care Teams Bookkeeping Clerks Supervisor Relationship Specialty Start Date End Date Marguerite Kaba FNP [address] [place] [address] PCP - General Family Medicine 10/18/22 Liz Nieves Embalmer/Funeral DirectorTub Operator 04/08/24 documented as of this encounter
--- OUTSIDE RECORDS SUMMARY | 2025-01-18 17:26 | XMS_ITS | Encounter Summary ---
Author Organization [employer] Address [address] [place] [address] [address] [place] [address] Care Team Providers Care Machine Sprayer Name Role Phone Marguerite Kaba Primary Care Provider [phone] Encounter Details Date Type Department Care Team (Late Contact Info) Description 03/18/2023 Orders Only [facility] [address] [place] [address] Marguerite Kaba FNP [address] [place], [place] [phone] Encounter for routine history and physical examination [...] Upcoming Encounters Date Type Department Care Team ([facility] Contact Info) Description 03/05/2025 1:45 PM EDT Office Visit [facility]EDS [address] [place] [address] Marguerite Kaba FNP [address] [place] [address] Scheduled Orders Name Type Priority Associated Diagnoses [...] documented as of this encounter Care Teams Machine Sprayer Relationship Specialty Start Date End Date Marguerite Kaba FNP [address] [place] [address] PCP - General Family Medicine 10/18/22 Liz Nieves [place] Machine OperatorRn Medication 04/08/24 documented as of this encounter
--- OUTSIDE RECORDS SUMMARY | 2025-01-18 17:26 | XMS_ITS | Encounter Summary ---
Author Organization [employer] Address [address] [place] [address] 7 [place] [address] Care Team Providers Care Chemist Water Purification Name Role Phone Marguerite Kaba Primary Care Provider [phone] Reason for Visit * Reason Comments Pre-visit Planning SDOH screening was c ompleted on 12/07/2024 Encounter Details Date Type Department Care Team ([facility] st Contact Info) Description 12/30/2024 Patient Outreach [facility] & PEDS [address] [place], [place] [phone] Marguerite Kaba FNP [address] [place] [address] Pre-visit Planning (SDOH screening was completed on 12/07/2024) Social History Tobacco Use Types Packs/Day Years [...] AM EDT documented as of this encounter Progress Notes * Soraya Serna - 12/30/2024 11:58 AM EST STEPHANY Islas placed successful outbound call to patient for pre-visit planning. Patient name and confirmed. Patient confirms appt date and time, and has transportation arrangements. Biggest concern for appointment at this time is would like to know why PCP did not want to renew the handicap placard, which is for long distance. Patient advised to bring to appointment a photo id and insurance card. Appropriate screenings completed in anticipation of appointment. documented in this encounter Plan of Treatment Upcoming Encounters Date Type Department Care Team (Late st Contact Info) Description 03/05/2025 1:45 PM EDT Office Visit [facility] MED & PEDS [address] [place] [address] Marguerite Kaba FNP [address] [place] [address] documented as of this encounter Visit Diagnoses Not on filedocumented in this encounter Additional Health Concerns Assessment Noted Time PHQ-9 Depression Total Score: 17 024 1:51 PM EDT documented as of this encounter Care Teams Chemist Water Purification Relationship Specialty Start Date End Date Marguerite Kaba FNP [address] [place] [address] PCP - General Family Medicine 10/18/22 Liz Nieves Lap Winding Machine OperatorBath Steward 04/08/24 documented as of this encounter
--- OUTSIDE RECORDS SUMMARY | 2025-01-18 17:26 | XMS_ITS | Clinical Summary ---
Author Organization [employer] [facility] ity Address [address] [place] [address] Care Team Providers Care Denture Processor Name Role Phone Unavailable Primary Care Provider Unavailabl e Social History Tobacco Use Types Packs/Day Years Used Date Smoking Tobacco: Never Assessed Comments Unknown Sex and Gender Information Value Date Recorded Sex Assigned at Not on file Legal Sex Female 4:36 AM EST Gender Identity Not on file Sexual Orientation Not on file Plan of Treatment Health Maintenance Due Date Last Done Comments Breast Cancer Screening 1969 DTaP,Tdap,and Td Vaccines (1 - Tdap) 1988 Hepatitis B Vaccines (1 of 3 - 19+ 3-dose series) 1988 Cervical Cancer Screening: P ap Smear 1990 Pneumococcal Vaccine: 50+ Ye ars (1 of 1 - PCV) 2019 Zoster Vaccines (1 of 2) 2019 COVID-19 Vaccine ( - 2023-2 5 season) 2024 Influenza Vaccine [...] patient's age to complete this topic Meningococcal B Vacine Aged Out No lo nger eligible based on patient's age to complete [...]
--- OUTSIDE RECORDS SUMMARY | 2025-01-18 17:26 | XMS_ITS | Encounter Summary ---
Author Organization [employer] Address [address] [place] [address] 7 [place] [address] Care Team Providers Care Airplane Cover Maker Name Role Phone Marguerite Kaba Primary Care Provider [phone] Encounter Details Date Type Department Care Team (Late st Contact Info) Description 10/19/2022 Orders Only [facility] [address] [place], [place] [phone] Mandy Gilbert LPN Social History Tobacco Use [...] Description 03/05/2025 1:45 PM EDT Office Visit [facility] MED & PEDS [address] [place] [address] Marguerite Kaba FNP [address] [place] [address] documented as of this encounter Visit Diagnoses Not on filedocumented in this encounter Care Teams Airplane Cover Maker Relationship Specialty Start Date End Date Marguerite Kaba FNP [address] [place] [address] PCP - General Family Medicine 10/18/22 Liz Nieves Garden WorkerSeafood Farmer 04/08/24 documented as of this encounter
--- OUTSIDE RECORDS SUMMARY | 2025-01-18 17:26 | XMS_ITS | Encounter Summary ---
Author Organization [employer] Address [address] [facility] 7t [place] [address] Care Team Providers Care Pediatrician Active Practice Name Role Phone Marguerite Kaba Primary Care Provider [phone] Reason for Visit * Reason Comments Med Refill Encounter Details Date Type Department Care Team ([facility] st Contact Info) Description 01/03/2025 Refill [facility] [address] [place] [address] Marguerite Kaba FNP [address] [place] [address] Low back pain at multiple sites Social History Tobacco Use Types Packs/Day Years [...] Description 03/05/2025 1:45 PM EDT Office Visit [facility] MED & PEDS [address] [place] [address] Marguerite Kaba FNP [address] [place] [address] documented as of this encounter Visit Diagnoses Diagnosis Low back pain at multiple sites documented in this encounter Additional Health Concerns Assessment Noted Time PHQ-9 Depression Total Score: 17 024 1:51 PM EDT documented as of this encounter Care Teams Pediatrician Active Practice Relationship Specialty Start Date End Date Marguerite Kaba FNP [address] [place] [address] PCP - General Family Medicine 10/18/22 Liz Nieves Radiation TechnicianCad Technician 04/08/24 documented as of this encounter
== END 2025-01-18 15:43 | disposition home or self-care (01) ==
LOC: HO.HPS 14:52
PROVIDERS: PCP Registered Nurse; Visit Provider Hospitalist
DX: R91.8 Other nonspecific abnormal finding of lung field (principal); F17.200 Nicotine dependence, unspecified, uncomplicated; G47.33 Obstructive sleep apnea (adult) (pediatric)
CPT/HCPCS: 99214

== ENCOUNTER → 2025-01-18 14:51 | Outpatient (BNVA) | payer MEDICAID, SELFPAY | PROVIDERS: PCP Registered Nurse; Visit Provider Hospitalist | DX: R91.8 Other nonspecific abnormal finding of lung field (principal); G47.33 Obstructive sleep apnea (adult) (pediatric); J45.909 Unspecified asthma, uncomplicated; Z99.89 Dependence on other enabling machines and devices; Z87.891 Personal history of nicotine dependence | CPT/HCPCS: 99212 ==

== ENCOUNTER 2025-03-05 14:40 | Outpatient (REF) | payer MEDICAID, SELFPAY ==
--- OUTSIDE RECORDS SUMMARY | 2025-03-05 14:44 | XMS_ITS | Data Portability ---
Author Organization [employer] George Karimi Paandres [facility], [facility] Address [address] [place] [address] Care Team Providers Care Treater Name Role Phone [facility] Primary Care Provider Assessment No assessment recorded. Plan of Treatment Reminders Order Date Submit Date Provider Last Modified By Organization Details Last Modified Time Details Appointments None recorded. Lab None recorded. Referral None recorded. Procedures None recorded. Surgeries None recorded. Imaging MRI, knee, w/o contrast - lmt 2023 [facility] ([facility]), [address] [facility], [place], [address], 4 10:34:05 XR, knee, 4 or more view - room 210 bilateral knee 2023 [facility], [address], [place], [address], 4 10:34:05 Medication Orders None recorded. Patient TargetsNo targets recorded. Patient InstructionsNo instructions recorded. Reason for Referral None Reported. Results Created Date Observation Date Name Description Value Unit Range Abnormal Flag Note LastModifiedBy Organization Detail LastModifiedTime 08/28/2008/28/2024 XR, knee, 4 or more view http:/ [email or web address] ?Encry pted=s hAaTro YD8dLq bEUv6g %2BXZw aYqtaq 0bqfl% 2Fg9IQ a4ajBk vP9nXo QUaueC m3YtLR FvZlgJ JJ8mAn HZtai3 5v3178 AC0Kqa HyAWKK uKiQtr MwF INTERFACE [facility] [address], [place], [address], 08/28/2024 13:31:16 08/28/20 24 08/28/2024 XR, knee, 4 or more view http:/ [email or web address] ?Encry pted=s hAaTro YD8dLq bEUv6g %2BXZw aYqtaq 0bqfl% 2Fg9IQ a4ajBk vP9nXo QUaueC m3YtLR FvZlgJ JJ8mAn HZtai3 8l8258 AC0Kqa HyAWKK uKiQtr MwF INTERFACE [facility] [address], [place], [address], 08/28/2024 13:31:18 09/10/20 24 09/09/2024 MRI, knee, w/o contr ast [facility] Access ion Number : [id number] Patien t Name: Chiqui Burger Record Number : [id number] Date of : 1969 Date of Exam: 2023 Referr ing Physic ynes: [facility]estine [facility] ([facility]) [address], [address] [place] [address] Exam: MR Knee (C-) CPT 33292 - Right Room Descri ption: [facility] Pion 3T MRI right knee Histor y: [...] provid er will be docume nted in [facility] onnect Action able Findin erin herr e [place] [id number] 7. Electr onical ly Signed By: Ernestine Tavarez MD [email or web address] [facility] ([facility]) [address], [place], [address], 09/22/2024 09:18:15 Result Notes None recorded. Problems Name Problem SNOMED Code Status Onset Date Resolution Date Notes Provider Name and Address Organization Details Recorded Time Primary gonarthrosi s, bilateral 768454585 Active 2023 Mauri Ellis PA-C [address], [place], [address], [facility] 4 12:51:43 Tear of lateral meniscus of knee 574473969 Active 2023 Mauri Ellis PA-C [address], [facility] [place], [address], [facility] - [facility] 4 13:36:31 Derangement of right knee 8383064824648 9109 Active 2023 Mauri Ellis PA-C [address], [place], [address], [facility] - [facility] 4 13:36:39 Fracture of femur 17417927 Active 2023 Mauri Ellis PA-C [address], [place], [address], [facility] 4 06:34:41 Problem Notes None recorded. Procedures Surgical History None recorded. Imaging Results Imaging Date Name Status LastModified by Organiz ation Details LastModified Time 08/28/2024 XR, knee, 4 or more view completed INTERFACE [facility] [address], [place], [address], 08/28/2024 13:31:16 08/28/2024 XR, knee, 4 or more view completed INTERFACE [facility] [address], [place], [address], 08/28/2024 13:31:18 09/09/2024 MRI, knee, w/o contrast completed [email or web address] [facility] ([facility]) [address], [place], [address], 09/22/2024 09:18:15 Procedure Notes None recorded. Medical [...] Updated DateTime 08/28/2024 162.56 cm 25.7 kg/m2 40327.86 g Mauri Ellis PA-C [address] [employer] [address] [place] [address], [address], [facility] 08/28/2024 13:12:26 Date Recorded Body height Body mass index (BMI) Body weight Provider Name and Address Organization Details Last Updated DateTime 09/23/2024 162.56 cm 25.7 kg/m2 34452.86 g Mauri Ellis PA-C [address] [employer] [address] [place] [address], [address], [facility] 09/23/2024 11:59:48 Social History None recorded. Functional Status None recorded. Mental Status None recorded. Family History Nothing Reported. Medical History Condition Response Cholesterol Y Asthma Y Sleep Apnea Y Headaches Y Hypertension Y Gynecological HistoryNo gynecological history recorded. Obstetrics History GPAL:G 0 P 0 0 0 0 Past Encounters Encounter ID Performer Location Encounter Start Date Encounter Closed Date Diagnosis/Indication Diagnosis SNOMED-CT Code Diagnosis ICD10 Code Diagnosis Note [id number] Mauri Ellis PA-C [facility] [address] [place] [address] 08/28/2024 12:53:04 09/17/2024 10:34:05 Primary gonarthrosis, bilateral 251615207 M17.0 Tear of la teral meniscus of knee 390058702 S83.271A Derangemen t of right knee 9298032306 6630850 M23.91 [id number] Mauri Ellis PA-C [facility] [address] [place] [address] 09/23/2024 11:50:16 10/13/2024 09:41:36 Fracture of femur 13721258 M84.451D Health Concerns Section Related Observation LastModified by Organization Detai ls LastModified Time None Recorded Concern Status LastModified by Organization Details LastModified Time None Recorded Advance Directives Directive None Recorded Payers Encounter Date Sequence Insurance Name Policy Number Policy Saez Covered Member ID Saez Member ID Guarantor Name 08/28/2024 1 [place] Isabelle Burger [id number] Isabelle Burger 09/23/2024 1 [place] Isabelle Burger [id number] Isabelle Burger Notes Date Note Type Note [...] oriented x3. Normal insight, affect, and grooming. SECOND BAKER: Gross motor coordination is intact. No spasticity [...] views ordered and independently reviewed previously at [facility] of the left and right knees [...] evaluation our office once MRI is complete. [employer] speech recognition electrical and instrument mechanic software was used to create portions of this document. An attempt at proofreading has been made to minimize errors. Please call for corrections Mauri Ellis PA-C [address] [place] [address] [address] [facility], [place], [address], [facility] 08/28/2024 14:09:32 09/23/2024 text/html I am [...] views ordered and independently reviewed previously at [facility] of the left and right knees [...] risk of this collapsing to progressive osteoarthritis. [facility] speech recognition electrical and instrument mechanic software was used to create portions of this document. An attempt at proofreading has been made to minimize errors. Please call for corrections Mauri Ellis PA-C [address] [place] [address], [place], [address], [facility] - [facility] 09/23/2024 12:51:21 OBGyn Episode No OBEpisode recorded.
--- OUTSIDE RECORDS SUMMARY | 2025-03-05 14:44 | XMS_ITS | Encounter Summary ---
Author Organization [email or web address] Address [address] [facility] 7t [place] [address] Care Team Providers Care Insole Tape Stitcher Uco Name Role Phone Marguerite Kaba REMY Primary Care Provider [phone] Encounter Details Date Type Department Care Team (Latest Contact Info) Description 03/05/2025 Travel Social History Tobacco Use Types Packs/Day [...] Care Team (Late st Contact Info) Description 06/11/2025 2:45 PM EDT Office Visit [facility] MED & PEDS [address] [place] [address] Marguerite Kaba FNP [address] [place] [address] documented as of this encounter Visit Diagnoses Not on filedocumented in this encounter Additional Health Concerns Assessment Noted Time PHQ-9 Depression Total Score: 17 024 1:51 PM EDT documented as of this encounter Care Teams Insole Tape Stitcher [employer] Relationship Specialty Start Date End Date Marguerite Kaba FNP [address] [place] [address] PCP - General Family Medicine 10/18/22 Liz Nieves Regional ForesterFront Man 04/08/24 Liz Nieves Regional ForesterFront Man 02/11/25 documented as of this encounter
--- OUTSIDE RECORDS SUMMARY | 2025-03-05 14:44 | XMS_ITS | Encounter Summary ---
Author Organization [employer] Address [address] [place] [address] 7 [place] [address] Care Team Providers Care Leaf Conditioner Helper Name Role Phone Marguerite Kaba Primary Care Provider [phone] Reason for Visit * Reason Comments Med Change Request Encounter Details Date Type Department Care Team ([facility] Contact Info) Description 03/05/2025 Refill [facility] MED & PEDS [address] [place] [address] Marguerite Kaba FNP [address] [place] [address] Social History Tobacco Use Types Packs/Day Years [...] Description 06/11/2025 2:45 PM EDT Office Visit [facility] MED & PEDS [address] [place] [address] Marguerite Kaba FNP [address] [place] [address] documented as of this encounter Visit Diagnoses Not on filedocumented in this encounter Additional Health Concerns Assessment Noted Time PHQ-9 Depression Total Score: 17 024 1:51 PM EDT documented as of this encounter Care Teams Leaf Conditioner Helper Relationship Specialty Start Date End Date Marguerite Kaba FNP [address] [place] [address] PCP - General Family Medicine 10/18/22 Liz Nieves Packer FuserSlice Plug Cutter Operator 04/08/24 Liz Nieves Packer FuserSlice Plug Cutter Operator 02/11/25 documented as of this encounter
--- OUTSIDE RECORDS SUMMARY | 2025-03-05 14:44 | XMS_ITS | Encounter Summary ---
Author Organization [employer] Address [address] [place] [address] 7 [place] [address] Care Team Providers Care Instrument Maker Apprentice Name Role Phone Marguerite Kaba Primary Care Provider [phone] Reason for Visit * Reason Onset Date Comments Chart Prep 03/04/2025 Encounter Details Date Type Department Care Team ([facility] st Contact Info) Description 03/04/2025 Telephone [facility] MED & PEDS [address] [place], [place] [phone] Marguerite Kaba FNP [address] [place] [address] Chart Prep Social History Tobacco Use Types Packs/Day Years [...] AM EDT documented as of this encounter Miscellaneous Notes * Telephone Encounter - Oly Zuluaga [place] - 03/04/2025 3:54 PM EDT Chart Prep Labs: done Images: done Referrals: complete Vaccines due: Hep B and Td Screenings: pap smear Overdue care gaps: SBIRT and SDOH documented in this encounter Plan of Treatment Upcoming Encounters Date Type Department Care Team (Late st Contact Info) Description 06/11/2025 2:45 PM EDT Office Visit [facility] MED & PEDS [address] [place] [address] Marguerite Kaba FNP [address] [place] [address] documented as of this encounter Visit Diagnoses Not on filedocumented in this encounter Additional Health Concerns Assessment Noted Time PHQ-9 Depression Total Score: 17 024 1:51 PM EDT documented as of this encounter Care Teams Instrument Maker Apprentice Relationship Specialty Start Date End Date Marguerite Kaba FNP [address] [place] [address] PCP - General Family Medicine 10/18/22 Liz Nieves Boot Liner MakerFlow Nurse 04/08/24 Liz Nieves Boot Liner MakerFlow Nurse 02/11/25 documented as of this encounter
--- OUTSIDE RECORDS SUMMARY | 2025-03-05 14:44 | XMS_ITS | Encounter Summary ---
Author Organization [employer] Address [address] [place] [address] 7t [place] [address] Care Team Providers Care Chart Calculator Name Role Phone Marguerite Kaba Primary Care Provider [phone] Reason for Visit * Reason Onset Date Comments r/s appt 01/18/2023 Encounter Details Date Type Department Care Team ([facility] st Contact Info) Description 01/18/2023 Telephone [facility] [address] [place] [address] Marguerite Kaba FNP [address] [place] [address] r/s appt Social History Tobacco Use Types [...] Physical on 02/04/2023. Please contact pt at [phone] documented in this encounter Plan of Treatment Upcoming Encounters Date Type Department Care Team ([facility] st Contact Info) Description 06/11/2025 2:45 PM EDT Office Visit [facility] [address] [place] [address] Marguerite Kaba FNP [address] [place] [address] documented as of this encounter Visit Diagnoses Not on filedocumented in this encounter Additional Health Concerns Assessment Noted Time PHQ-9 Depression Total Score: 0 12/21/19 23 3:46 PM EST documented as of this encounter Care Teams Chart Calculator Relationship Specialty Start Date End Date Marguerite Kaba FNP [address] [place] [address] PCP - General Family Medicine 10/18/22 Liz Nieves Heavy Duty MechanicConsulting Practice Manager 04/08/24 Liz Nieves Heavy Duty MechanicConsulting Practice Manager 02/11/25 documented as of this encounter
--- OUTSIDE RECORDS SUMMARY | 2025-03-05 14:44 | XMS_ITS | Encounter Summary ---
Author Organization [employer] Address [address] [place] [address] [address] [address] Care Team Providers Care Sales Force Administrator Name Role Phone Marguerite Kaba Primary Care Provider [phone] Reason for Referral * Consultation (Routine) - Pending Review Specialty Diagnoses / Procedures Referred By César capmos Referred To Contact Podiatry Diagnoses Pain in left foot Marguerite Kaba FNP [address] [place] [address] Phone: tel: fax: [address] Phone: tel: fax: Referral ID Status Reason Start Date Expiration Date Visits Requested Visits Authorized [id number] Pending Review Specialty Services Required 03/05/2025 03/05/2026 1 1 Encounter Details Date Type Department Care Team (Late st Contact Info) Description 03/05/2025 1:45 PM EDT Office Visit [facility] MED & PEDS [address] [place] [address] Marguerite Kaba FNP [address] [place], [place] [phone] Primary hypertension (Primary Dx); Asthma, unspecified asthma severity, unspecified whether complicated, unspecified whether persistent; High blood cholesterol level; Healthcare maintenance; Pain in left foot; Lung nodule; Stress incontinence Social History Tobacco Use Types Packs/Day Years [...] AM EDT documented as of this encounter Last Filed Vital Signs Vital Sign Reading Time Taken Comments Blood Pressure 128/76 03/05/2025 1:41 PM EDT Pulse 80 03/05/2025 1:39 PM EDT Temperature 36.1 ??C (97 ??F) 03/05/2025 1:39 PM EDT Respiratory Rate 19 03/05/2025 1:39 PM EDT Oxygen Saturation 98% 03/05/2025 1:39 PM EDT Inhaled Oxygen Concentration - - Weight 68.7 kg (151 lb 6 oz) 03/05/2025 1:39 PM EDT Height 162.6 cm (5' 4 ) 03/05/2025 1:39 PM EDT Body Mass Index 25.98 03/05/2025 1:39 PM EDT documented in this encounter Miscellaneous Notes * Assessment & Plan Note - REMY Emmanuel - 03/05/2025 2:41 PM EDTAssociated Problem(s): Stress incontinence - Reports previously evaluated by uroGYN/uro with rec for pessary. Pt declined. - No dysuria - DME request for disposable incont pads sent 03/05/25 * Assessment & Plan Note - REMY Emmanuel - 03/05/2025 2:35 PM EDTAssociated Problem(s): Asthma Well controlled, using albuterol <2x/week Following with [facility] Pulm (Dr. Modi) due to pleural thickening and nodules. Continue with current regimen: Symbicort BID Albuterol PRN Montelukast 10mg nightly * Assessment & Plan Note - REMY Emmanuel - 03/05/2025 2:32 PM EDTAssociated Problem(s): Hypertension Home BP readings: reports well controlled Continue hydrochlorothiazide 25mg daily and lifestyle interventions Repeat BMP - if hypokalemic will plan to DC hydrochlorothiazide Cont lifestyle interventions documented in this encounter Plan of Treatment Upcoming Encounters Date Type Department Care Team (Late st Contact Info) Description 06/11/2025 2:45 PM EDT Office Visit [facility] MED & PEDS [address] [place], [place] [phone] Marguerite Kaba FNP [address] [place] [address] Scheduled Orders Name Type Priority Associated Diagnoses Orde r Schedule Basic Metabolic Panel Lab Routine Primary hypertension Expected: 03/05/2025 (Approximate), Expires: 03/05/2026 CBC auto differential Lab Routine Healthcare maintenance Expected: 03/05/2025 (Approximate), Expires: 03/05/2026 Ferritin Lab Routine Healthcare maintenance Expected: 03/05/2025, Expires: 03/05/2026 Hepatic Function Panel Lab Routine Healthcare maintenance Expected: 03/05/2025 (Approximate), Expires: 03/05/2026 Scheduled Referrals Name Type Priority Associated Diagnoses Orde r Schedule Referral to Podiatry Outpatient Referral Routine Pain in left foot Expected: 03/05/2025 (Approximate), Expires: 03/05/2026 documented as of this encounter Visit Diagnoses Diagnosis Primary hypertension- Primary Unspecified essential hypertension Asthma, unspecified asthma severity, unspecified whether complicated, unspecified whether persistent High blood cholesterol level Pure hypercholesterolemia Healthcare maintenance Pain in left foot Pain in soft tissues of limb Lung nodule Other diseases of lung, not elsewhere classified Stress incontinence Female stress incontinence documented in this encounter Additional Health Concerns Assessment Noted Time PHQ-9 Depression Total Score: 17 024 1:51 PM EDT documented as of this encounter Care Teams Sales Force Administrator Relationship Specialty Start Date End Date Marguerite Kaba FNP [address] [place] [address] PCP - General Family Medicine 10/18/22 Liz Nieves Apartment Leasing ManagerMultifocal Button Inspector 04/08/24 Liz Nieves Apartment Leasing ManagerMultifocal Button Inspector 02/11/25 documented as of this encounter
--- OUTSIDE RECORDS SUMMARY | 2025-03-05 14:45 | XMS_ITS | Encounter Summary ---
Author Organization [facility] [employer] Address [address] [place] [address] [address] [address] Care Team Providers Care Bookbinder Chief Name Role Phone Marguerite Kaba Primary Care Provider [phone] Encounter Details Date Type Department Care Team (Late Contact Info) Description 10/22/2022 Telephone [facility] [address] [place], [place] [phone] Marguerite Kaba FNP [address] [place] [address] Social History Tobacco Use Types Packs/Day Years [...] Department Care Team (Late Contact Info) Description 06/11/2025 2:45 PM EDT Office Visit [facility] [address] [place], [place] [phone] Marguerite Kaba FNP [address] [place] [address] documented as of this encounter Visit Diagnoses Not on filedocumented in this encounter Care Teams Bookbinder Chief Relationship Specialty Start Date End Date Marguerite Kaba FNP [address] [place] [address] PCP - General Family Medicine 10/18/22 Liz Nieves Lumber Piler OperatorByproducts Extractor 04/08/24 Liz Nieves Lumber Piler OperatorByproducts Extractor 02/11/25 documented as of this encounter
--- OUTSIDE RECORDS SUMMARY | 2025-03-05 14:45 | XMS_ITS | Encounter Summary ---
Author Organization [email or web address] Address [address] [place] [address] [address] [place] [address] Care Team Providers Care 5Th Grade Teacher Name Role Phone Marguerite Kaba Primary Care Provider [phone] Encounter Details Date Type Department Care Team (Late st Contact Info) Description 10/19/2022 Orders Only [facility] [address] [place] [address] Mandy Gilbert LPN Social History Tobacco Use [...] 06/11/2025 2:45 PM EDT Office Visit [facility] [address] [place] [address] Marguerite Kaba FNP [address] [place] [address] documented as of this encounter Visit Diagnoses Not on filedocumented in this encounter Care Teams 5Th Grade Teacher Relationship Specialty Start Date End Date Marguerite Kaba FNP [address] [place] [address] PCP - General Family Medicine 10/18/22 Liz Nieves Ent PhysicianCare Mgr 04/08/24 Liz Nieves Ent PhysicianCare Mgr 02/11/25 documented as of this encounter
--- OUTSIDE RECORDS SUMMARY | 2025-03-05 14:45 | XMS_ITS | Clinical Summary ---
Author Organization [facility] Address [address] [place] [address] Care Team Providers Care Process Developer Name Role Phone Unavailable Primary Care Provider Unavailabl e Source Comments PLEASE NOTE, if this patient is a minor, it may be UNLAWFUL to discuss sensitive information that is contained in these records (such as FAMILY PLANNING, MENTAL HEALTH or SUBSTANCE ABUSE) with the minor patient's parent or other person without the patient's specific authorization.[facility] Immunizations Immunization Administration Dates Next Due PFIZER COVID VACCINE, [...] Health Maintenance Due Date Last Done Comments Anxiety Screening 1970 Diabetes Screening 1970 HPV Screening 1970 Hepatitis [...] - Td or Tdap) 05/10/2024 014, 03/17/1996 [id number] (3 season) 2024 021, 04/27/2021 Imm-Influenza (#1) 2024 09/07/2013, 0 11/05/2012, 07/21/2011 Alcohol and Drug Screen 11/04/2024 Depression Annual Screen 11/04/2024 Cervical Ablation/Cold-Knife Conization Discontinued Cervical Cryotherapy Discontinued Colposcopy Discontinued Endometrial Biopsy Discontinued Excision/Leep Discontinued HPV Genotyping Discontinued Vaginal Pap Discontinued Vulvoscopy Discontinued Insurance [address] [employer]
--- OUTSIDE RECORDS SUMMARY | 2025-03-05 14:45 | XMS_ITS | Clinical Summary ---
Author Organization [employer] [facility] Address [address] [place] [address] Care Team Providers Care Fly Tier Name Role Phone Unavailable Primary Care Provider [...] - 2023-2 5 season) 2024 Influenza Vaccine (Season Ended) 2025 HIB Vaccines Aged Out No longer eligi [...] age to complete this topic Meningococcal B Vaccine Aged Out No l onger eligible based on patient's age to complete [...]
--- OUTSIDE RECORDS SUMMARY | 2025-03-05 14:45 | XMS_ITS | Encounter Summary ---
Author Organization [facility] [employer] Address [address] [place] [address] [address] [place] [address] Care Team Providers Care Pharmacy Technician Instructor Name Role Phone Marguerite Kaba Primary Care Provider [phone] Encounter Details Date Type Department Care Team (Late Contact Info) Description 03/18/2023 Orders Only [facility] [address] [place] [address] Marguerite Kaba FNP [address] [place], [place] [phone] Encounter for routine history and physical examination [...] Upcoming Encounters Date Type Department Care Team ([facility] Contact Info) Description 06/11/2025 2:45 PM EDT Office Visit [facility] [address] [place] [address] Marguerite Kaba FNP [address] [place] [address] Scheduled Orders Name Type Priority Associated Diagnoses [...] documented as of this encounter Care Teams Pharmacy Technician Instructor Relationship Specialty Start Date End Date Marguerite Kaba FNP [address] [place] [address] PCP - General Family Medicine 10/18/22 Liz Nieves Business Services ClerkAccounts Receivable Clerk 04/08/24 Liz Nieves Business Services ClerkAccounts Receivable Clerk 02/11/25 documented as of this encounter
--- OUTSIDE RECORDS SUMMARY | 2025-03-05 14:45 | XMS_ITS | Clinical Summary ---
Author Organization [employer] Address [address] [place] [address] [address] [place] [address] Care Team Providers Care Percussion Instrument Repairer Name Role Phone Sesar Marguerite REMY Primary Care Provider [phone] Allergies No known active allergies Medications * This document contains information received from the source organization and may not represent a complete record from that organization. hydrOXYzine HCl (Atarax) 50 MG tablet TAKE 1 TABLET BY MOUTH THREE TIMES A DAY 10/03/20 20 Active cetirizine (ZyrTEC) 10 MG tabletIndicati ons:Seasonal [...] mouth Once per day. 02/07/20 24 Active omeprazole (PriLOSEC) [address] capsule Take 1 capsule (20 mg) by mouth Once per day. 90 capsule 1 07/13/20 24 Active sertraline (Zoloft) 100 MG tablet [...] SPASMS. 270 tablet 1 01/05/20 25 Active albuterol (2.5 MG/3ML) 0.083% nebulizer solution INHALE 1 VIAL VIA NEBULIZER 4 TIMES A DAY NEEDED 75 mL 3 01/21/20 25 Active magnesium oxide (Mag-Ox) 250 MG tablet take 1 tablet (250 mg) by mouth at bedtime 07/17/20 24 Active albuterol (Ventolin HFA) 108 (90 Base) MCG/ACT inhalerIndicat ions:Asthma, unspecified asthma severity, unspecified whether complicated, unspecified whether persistent INHALE 2 PUFFS BY MOUTH EVERY 4 TO 6 HOURS NEEDED 180 g 3 03/05/20 25 Active hydrOXYzine HCl (Atarax) 25 MG tablet Take 1 tablet (25 mg) by mouth every 12 (twelve) hours if needed for itching, allergies or anxiety. 60 tablet 2 03/05/20 25 Active rosuvastatin (Crestor) 20 MG tabletIndicati ons:High blood cholesterol level Take 1 tablet (20 mg) by mouth at bedtime. (Cholesterol) 90 tablet 3 03/05/20 25 Active Symbicort 160-4.5 MCG/ACT inhaler Inhale 2 puffs in the morning and at bedtime. Rinse mouth with water after use to reduce aftertaste and incidence of candidiasis. 10.2 g 2 03/05/20 25 026 Active ramelteon (Rozerem) 8 MG tablet Take 1 tablet (8 mg) by mouth at bedtime. 90 tablet 03/05/20 25 026 Active Symbicort 160-4.5 MCG/ACT inhaler INHALE 2 PUFFS BY MOUTH 2 TIMES A DAY 01/16/20 24 025 Discontinued(Re order (will not trigger notification to Pharmacy)) rosuvastatin (Crestor) 20 MG tabletIndicati ons:High blood cholesterol level TAKE 1 TABLET BY MOUTH AT BEDTIME 90 tablet 3 03/13/20 24 025 Discontinued(Re order (will not trigger notification to Pharmacy)) albuterol (Ventolin HFA) 108 (90 Base) MCG/ACT inhalerIndicat ions:Asthma, unspecified asthma severity, unspecified whether complicated, unspecified whether persistent INHALE 2 PUFFS BY MOUTH EVERY 4 TO 6 HOURS NEEDED 180 g 3 05/15/20 24 025 Discontinued(Re order (will not trigger notification to Pharmacy)) hydrOXYzine HCl (Atarax) 25 MG tablet Take 25 mg by mouth 2 times daily. 04/12/20 24 025 Discontinued(Re order (will not trigger notification to Pharmacy)) Active Problems Problem Noted Date Diagnosed Date Lung nodule 03/05/2025 Overview (03/05/2025): Followed by [facility] Pulm - Dr. Modi Consult January 2025: CT chest reviewed - irregular groundglass nodular density in the right upper lobe measuring 1.1 cm in size. Continue to follow in 1 year. Stress incontinence 03/05/2025 Assessment & Plan (03/05/2025 2:41 PM EDT): - Reports previously evaluated by uroGYN/uro with rec for pessary. Pt declined. - No dysuria - DME request for disposable incont pads sent 03/05/25 Chronic pain of right knee 08/30/2024 Overview (08/30/2024): Jul 2024: XR right knee WNL Following with PS&S (last consult Aug 2024) Assessment & Plan (08/30/2024 6:37 PM EDT): -Follow up with Ortho as scheduled -Cont with symptomatic management Subclinical hypothyroidism 03/10/2024 Overview (04/19/2024): Consult with [facility] Endo - Dr. De Jesus Consult [...] Cannabis abuse 10/14/2023 Healthcare maintenance 06/23/2023 Overview (03/05/2025): Routine Health Maintenance Optometry: [facility] (UTD as of April 2024) Dental: following with outside clinic (as of April 2024) BMD: starting at 64 y/o Last PE: 04/17/24 Routine Cancer Screening Breast CA: BIRADS 1 on 09/22/24 Cervical CA: NILM HPV Neg January 2021 [...] AM EDT): Followed by Dr. Modi - [facility] Pul. Nov 2023: Adjusted CPAP settings from 4-16 to 4-8 Mask: requested F30 12/30/23: Recertification for CPAP signed by PCP Lipoma of scalp 12/19/2022 Overview (06/23/2023): ? ? Lipoma of scalp removed january 2023 at [facility] Assessment & Plan (03/10/2023 8:25 PM EDT): ?? Lipoma of scalp removed january 2023 at [facility] Carpal tunnel syndrome of right wrist 11/10/2022 Assessment & Plan (03/10/2023 8:20 PM EDT): -EMG completed 09/12/22 with the following impression: mild carpal tunnel syndrome on the right -Pt is s/p left carpal tunnel surgery and trigger thumb release -Referred to [facility] Hand specialist for further eval and treatment Nov 2022 Assessment & Plan (11/10/2022 3:17 PM EST): -EMG completed 09/12/22 with the following impression: mild carpal tunnel syndrome on the right -Pt is s/p left carpal tunnel surgery and trigger thumb release -Referral to [facility] Hand specialist for further eval and treatment Follow up in 4 weeks for Transfer Patient visit Hypertension 11/09/2022 Assessment & Plan (03/05/2025 2:32 PM EDT): Home BP readings: reports well controlled Continue hydrochlorothiazide 25mg daily and lifestyle interventions Repeat BMP - if hypokalemic will plan to DC hydrochlorothiazide Cont lifestyle interventions Assessment & Plan (06/23/2023 7:57 AM EDT): [...] apply) New/Additional Services needed Off-site services for [facility] Psychopharmacology referral, Behavioral Health Integration Plan Internal Cold handoff internal psychiatric provider , External OP therapy referral , OP psychiatry Referral, Patient Self Plan Patient to utilize skills provided in intervention , Patient to reach out to [facility] team as needed, and Patient to [...] disorder 10/31/2012 Asthma 10/31/2012 Assessment & Plan (03/05/2025 2:35 PM EDT): Well controlled, using albuterol <2x/week Following with [facility] Pulm (Dr. Modi) due to pleural thickening and nodules. Continue with current regimen: Symbicort BID Albuterol PRN Montelukast 10mg nightly Assessment & Plan (04/19/2024 7:07 PM EDT): Well controlled, using albuterol <2x/week Following with [facility] Pulm (Dr. Modi) due to pleural thickening and nodules. Continue with current regimen: Symbicort BID Albuterol PRN Montelukast 10mg nightly Assessment & Plan (03/10/2024 10:22 AM EDT): Well controlled, using albuterol <2x/week Following with [facility] Pulm (Dr. Modi) due to pleural thickening [...] Encounters Date Type Department Care Team Description 03/05/2025 1:45 PM EDT Office Visit [facility] [address] [place] [address] Marguerite Kaba FNP Primary hypertension (Primary Dx); Asthma, unspecified asthma severity, unspecified whether complicated, unspecified whether persistent; High blood cholesterol level; Healthcare maintenance; Pain in left foot; Lung nodule; Stress incontinence 03/05/2025 Refill [facility] [address] [place] [address] Marguerite Kaba FNP 03/05/2025 Travel 03/04/2025 Telephone [facility] [address] [place] [address] Marguerite Kaba FNP Chart Prep 02/26/2025 Patient Outreach [facility] [address] [place] [address] Marguerite Kaba FNP Pre-visit Planning (Pre visit planning LVM ) 02/11/2025 Telephone [facility] [address] [place] [address] Marguerite Kaba FNP Care Coordination (ICP Care Plan) 01/20/2025 Refill [facility] [address] [place] [address] Marguerite Kaba FNP 01/15/2025 Population Health Risk Score Community [facility] () Department [address] [place] [phone] Provider, Population Health Generic 01/03/2025 Refill [facility] [address] [place] [address] Marguerite Kaba FNP Low back pain at multiple sites 12/30/2024 Patient Outreach [facility] [address] [place] [address] Marguerite Kaba FNP Pre-visit Planning (SDOH screening was completed on 12/07/2024) 12/10/2024 Telephone [facility] [address], [place] [phone] Oly Jeter [place] Chart Prep 12/07/2024 Patient Outreach [facility] [address], [place] [phone] Marguerite Kaba FNP Pre-visit Planning (SDOH negative, Tobacco screening negative.) from Last 3 Months Immunizations Name Administration [...] Mass Index 25.98 03/05/2025 1:39 PM EDT Plan of Treatment Upcoming Encounters Date Type Department Care Team (Late st Contact Info) Description 06/11/2025 2:45 PM EDT Office Visit [facility] [address] [place] [address] Marguerite Kaba FNP [address] [place], [place] [phone] Health Maintenance Due Date Last Done Comments CT Colonography 1969 Colonoscopy 1969 Dental Oral Exam 1969 Dental Prophylaxis 1969 Dental X-Ray: Bitewings 1969 Dental X-Ray: Full Mouth 1969 FIT 1969 FOBT 1969 Sigmoidoscopy 1969 Alcohol/Substance Use Screening 1981 Hepatitis B Vaccines (1 of 3 - 19+ 3-dose series) 1988 Zoster Vaccines (2 of 2) 02/17/2023 12/23/2022 DTaP/Tdap/Td Vaccines (2 - Td or Tdap) 05/10/2024 05/10/2014, 03/17/1996 Depression Screening 03/09/2025 03/09/2024, 03/09/20 Diabetes: Hemoglobin A1C 08/28/2025 024, 06/28/2023, 03/11/2023, Additional history exists Tobacco Screening 08/28/2025 08/28/2024 COVID-19 Vaccine ( season) 2025 05/18/2021, 04/27/2021 Postponed from 07/05/2024 (Patient Refused) Mammogram 09/22/2025 09/22/2024, 09/04, 09/11/2022, Additional history exists SDOH Screening 12/07/2025 12/07/2024 Cervical Cancer Screening 01/05/2026 HPV/Cotest 01/05/2026 01/05/2021 Pap Smear 01/05/2026 01/05/2021 Colorectal Cancer Screening 03/20/2027 FIT [...] Center ? [address] ?[place] [address] ? Mammography Report ? Signed ? Patient: Burger,Isabelle ?MR#: [id number] ?? 153 ? : 1970 ?Acct:[id number] ? Age/Sex: 54 / F ?ADM Date: 09/22/24 ? Loc: HO.MAMMO ? Attending Dr: Marguerite Kaba ELECTRICIAN UNDERGROUND ? Ordering Physician: Marguerite Kaba ELECTRICIAN UNDERGROUND ?Results: 1Negat ?? dontae ? Date of Service: 09/22/24 ?Follow Up: 1 Year From Orig ?? inal Mammogram ? Procedure(s): MM tomosynthesis screening BI ?? Accession Number(s): [id number] ? cc: Marguerite Kaba ELECTRICIAN UNDERGROUND ? EXAMINATION: ?? MM SCREENING DIGITAL BREAST [...] DD/ 1135 ? TD/TT: 09/22/24 1140 ? Combination Machine Tool Operator: ? Procedure Note Ilda, Carleen - 09/30/2024 [facility] [address] [place] [address] Mammography Report Signed Patient: Isabelle BurgerMR#: [id number] 153 : 1970Acct:[id number] Age/Sex: 54 / FADM Date: 09/22/24 Loc: HO.MAMMO Attending Dr: Marguerite Kaba ELECTRICIAN UNDERGROUND Ordering Physician: Marguerite KabaPResults: 1Negat dontae Date of Service: 09/22/24Follow Up: 1 Year From Orig inal Mammogram Procedure(s): MM tomosynthesis screening BI Accession Number(s): [id number] cc: Marguerite Kaba ELECTRICIAN UNDERGROUND EXAMINATION: MM SCREENING DIGITAL BREAST TOMOSYNTHESIS, BILATERAL [...] 09/30/24 0817 DD/ 1135 TD/TT: 09/22/24 1140 Combination Machine Tool Operator: Marguerite ALBERTO IMG BI PROCEDURES Edited Resul t - Final * (ABNORMAL) Hemoglobin A1c (08/28/2024 2:30 PM EDT) Hemoglobin A1c 6.1(H) <6.0 % [facility] Comment:Hemoglobin A1C Refer ence Range Adults: 4.8 - 6.0 % Non diabetic: < 6.0 % Goal: < 7.0 %Additional Action Suggested: > 8.0 %Note: Hemoglobin A1c results are invalid for patients with abnormal amounts of HbF. Blood transfusions may impact the HbA1c concentration in the patient sample. Estimated Average Glucose 128 mg/dL [facility] Comment:eAG = Estimated ave rage glucose which is %A1C expressed asaverage glucose, using the formula of the C4D-QadvlzaPiwhlva Glucose study (ADAG), Diabetes Care, Vol.31,#8,Jun. 2007 Blood Venous blood specimen / Unknown 08/28/2024 2:30 PM EDT 08/28/2024 5:19 PM EDT us Marguerite ALBERTO LAB BLOOD ORDERABLES Final Res ult [facility] [address] [place] [phone] * (ABNORMAL) Lipid Panel, Standard (08/28/2024 2:30 PM EDT) Triglycerides 366(H) <150 mg/dL [facility] Comment:Desirable Triglyceri de: less than 150 mg/dLBorderline High Triglyceride 150-199 mg/dLHigh Triglyceride: 200-499 mg/dLVery High Triglyceride: greater than or equal to 5OO mg/dL Cholesterol 213(H) <200 mg/dL [facility] Comment:Desirable Cholestero l: less than 200 mg/dLBorderline High Cholesterol: 200-239 mg/dLHigh Cholesterol: greater than 239 mg/dL LDL Cholesterol Calculated 102(H) <100 mg/dL [facility] Comment:Desirable LDL: less than 100 mg/dLNear Optimal/Above Optimal LDL: 110- 129 mg/dLBorderline High LDL: 130-159 mg/dLHigh LDL: 160-189 mg/dLVery High LDL: greater than or equal to 190 mg/dL HDL Cholesterol 38(L) >40 mg/dL [facility] Comment:Desirable HDL: great er than 40 mg/dL Note: This HDL assay may give artificially low results in patients with liver disease. Blood Venous blood specimen / Unknown 08/28/2024 2:30 PM EDT 08/28/2024 5:19 PM EDT us Marguerite Kaba ELECTRICIAN UNDERGROUND LAB BLOOD ORDERABLES Final Res ult [facility] [address] [place] [phone] * Cologuard?? colon cancer screening (03/20/2024 10:00 AM EDT) Cologuard Result Negative Negative 03/27/20 10:37 AM EDT [facility] (CLIA #:[id number]) Comment: NEGATIVE TEST RESULT. A negative Cologuard [...] Obrien et al, N Engl J Med 2014;370(14):1286- 1297) The normal value (reference range) for this assay is negative. COLOGUARD RE-SCREENING RECOMMENDATION: Periodic colorectal cancer screening is an important part of preventive healthcare for asymptomatic individuals at average risk for colorectal cancer. ??Following a negative Cologuard result, the [place] [employer] Society and U.S. Multi-Society Task Force screening guidelines recommend a Cologuard re-screening interval of 3 years. References: [place] [employer] Guideline for Colorectal Cancer Screening: https://www.cancer.org/cancer/tiyoi-rendkk-zsznjr/eqjymhohw-tzvfbqrzs-zjbjofp/ac s-rec ommendations.html.; Mark KAUR, Diana MARSH, [place] JoK, Colorectal Cancer Screening: Recommendations for Physicians and Patients from the U.S. Multi-Society Task Force on Colorectal Cancer Screening , Am J Gastroenterology 2017; 112:0772-1923. TEST DESCRIPTION: Composite algorithmic analysis of stool [...] Obrien et al, N Engl J Med 2014;370(14):8807-0092.) Cologuard may produce a false negative or false positive result (no colorectal cancer or precancerous polyp present at colonoscopy follow up). A negative Cologuard test result does not guarantee the absence of CRC or advanced adenoma (pre-cancer). The current Cologuard screening interval is every 3 years. ([place] [employer] and U.S. Multi-Society Task Force). Cologuard performance data in a 10,000 patient pivotal study using colonoscopy as the reference method can be accessed at the following location: www.CrowdSystems.Netechy/results. Additional description of the Cologuard test process, warnings and precautions can be found at www.ehealthtrackerrd.Netechy. Stool specimen (specimen) 03/20/2024 10:00 AM EDT 03/21/2024 11:00 AM EDT Marguerite Kaba [facility] CURLY REYES Final Result [facility] (CLIA #:[id number]) [place] [address], * HIV-1 RNA, Quantitative, PCR with Reflex to Genotype (03/11/2023 11:31 AM EDT) Pathologist [facility] HIV 1 RNA, QN PCR Not Detected Copies/mL [facility] [employer] [place] HIV 1 RNA, QN PCR Not Detected Log cps/mL [facility] Comment: Reference Range: ?Not Detected ? copies/mL ?Not Detected Log copies/mL The test was performed using Real-Time Polymerase Chain Reaction. ? Reportable Range: 20 copies/mL to 10,000,000 copies/mL (1.30 Log copies/mL to 7.00 Log copies/mL). 03/11/2023 11:3 1 AM EDT 03/11/2023 11:32 AM EDT Narrative [facility] - 03/15/2023 4:29 PM EDT FASTING:YES FASTING: YES Marguerite Sesar [facility] BLOOD ORDERABLES Final Res ult Performing Organization Address [facility]/ZIP Co de Phone Number [facility] [address] [place] [address], [facility] [place] [address] [facility] [address] [facility] [place] [address] * Hepatitis C Antibody with Reflex to HCV, RNA, Quantitative, Real-Time PCR (03/11/2023 11:31 AM EDT) Hepatitis C Antibody NON-REACT DONTAE NON-REACT DONTAE [facility] [place] [facility] Index 0.37 <1.00 [facility] [place] [facility] Comment: HCV antibody was non-reactive. There is no laboratory evidence of HCV infection. In most cases, no further action is required. However, if recent HCV exposure is suspected, a test for HCV RNA (test code 42533) is suggested. For additional information please refer to http://education.[employer] Canyon/faq/PPQ93w5 (This link is being provided for informational/ educational purposes only.) Blood Venous blood specimen / Unknown 03/11/2023 11:31 AM EDT 03/11/2023 11:32 AM EDT Narrative [facility] - 03/15/2023 4:29 PM EDT FASTING:YES FASTING: YES Marguerite Kaba [facility] BLOOD ORDERABLES Final Res ult Performing Organization Address [facility]/ZIP Co de Phone Number [address], [facility] [place] [address] [facility] [place] [facility] [address] [place] [address] * THINPREP PAP AND HPV mRNA E6/E7 [...] historic and ?? current clinical information. ?? Curtain Feller Blindstitch: SEE COMMENT [facility] Comment: BLC,CT(ASCP) CT screening location: [address] ??[address] HPV nRNA E6/E7 Not Detected Not Detected [facility] Comment: Methodology: Deputy Sheriff/Investigator-Mediated Amplification This assay detects E6/E7 viral messenger RNA (mRNA) from 14 high-risk HPV types (16,18,31,33,35,39,45,51,52,56,58,59,66,68). ? The analytical performance characteristics of this assay have been determined by [facility]. The modifications have not been cleared or approved by the FDA. This assay has been validated pursuant to the CLIA regulations and is used for clinical purposes. ?? For additional information, please refer to http://education.[employer] [place]/faq/EFO306i1 (This link if provided for information/ educational purposes only.) Interpretation/Re sult: Negative for intraepithelial lesion or malignancy. [facility] LMP: NONE GIVEN [facility] Prev. BX: NONE GIVEN [facility] Prev. PAP: NONE GIVEN [facility] Review Curtain Feller Blindstitch: SEE COMMENT [facility] Comment: MSM, CT(ASCP) CT screening location: [address] ??[address] SOURCE: None given [facility] Statement Of Adequacy: SEE COMMENT [facility] Comment: Satisfactory for evaluation. Endocervical/transformation zone component present. Age and/or menstrual status not provided 01/05/2021 3:49 PM EST us Jamaica Cruz MD HISTORICAL/NON ORDERABLE LAB S Final Result [facility] [address] from Last 3 Months or Most Recently Relevant to Health Maintenance Insurance [facility] MEDICAID STAND ADULT Care Teams Percussion Instrument Repairer Relationship Specialty Start Date End Date Marguerite Kaba FNP [address] [place] [address] PCP - General Family Medicine 10/18/22 Liz Nieves Phd InternBaby Formula Mixer 04/08/24 Liz Nieves Phd InternBaby Formula Mixer 02/11/25
[2025-03-05 17:46] LABS: MANUAL DIFF FLAG NO
[2025-03-05 17:56] LABS: Basophils Absolute Auto 0.1 X10*3/uL (0.0-0.2); Basophils Percent Auto 1.1 % (0-2); Eosinophils Absolute Auto 0.1 X10*3/uL (0.0-0.4); Eosinophils Percent Auto 2.1 % (0-4); Hematocrit 40.1 % (37.0-47.0); Hemoglobin 13.2 g/dl (12.0-16.0); Imm Gran Abs Auto 0.02 X10*3/uL (0.00-0.03); Imm Gran Pct Auto 0.3 % (0.0-0.4); Lymphocytes Percent Auto 30.2 % (20-40); Mean Corpuscular HGB Conc 32.9 g/dl (31.0-35.0); Mean Corpuscular Hemoglobin 28.8 pg (27.0-33.0); Mean Corpuscular Volume 87.4 fL (80.0-98.0); Mean Platelet Volume 9.4 fL (9.4-12.3); Monocytes Absolute Auto 0.5 X10*3/uL (0.1-1.2); Monocytes Percent Auto 7.8 % (2-11); Neutrophils Absolute Auto 3.9 x10*3/uL (2.0-8.3); Neutrophils Percent Auto 58.5 % (45-73); Platelet Count 319 X10*3/uL (160-400); Red Blood Count 4.59 X10*6/uL (4.20-5.50); Red Cell Distribution Width 13.9 % (11.0-16.0); White Blood Count 6.6 X10*3/uL (4.8-10.8)
[2025-03-05 18:12] LABS: Alanine Aminotransferase 24 U/L (0-31); Albumin Level 4.4 g/dL (3.5-5.0); Alkaline Phosphatase 96 U/L (39-117); Anion Gap 14 (12-20); Aspartate Amino Transferase 21 U/L (5-31); Bilirubin Direct 0.1 mg/dL (0.0-0.5); Bilirubin Total 0.3 mg/dL (0.0-1.0); Blood Urea Nitrogen 18 mg/dL (9-16); Calcium 9.6 mg/dL (8.4-10.2); Carbon Dioxide 29 mmol/L (22-29); Chloride 105 mmol/L (96-108); Estimated Glomerular Filt Rate > 60; Glucose Random 111 mg/dL (60-115); Potassium 3.3 mmol/L (3.3-5.1); Sodium 145 mmol/L (135-145); Total Protein 7.4 g/dL (6.5-8.0)
[2025-03-05 18:28] LABS: Ferritin 63 ng/mL (10-250)
== END 2025-03-05 14:41 | disposition home or self-care (01) ==
LOC: HO.CHCLDS 14:40
PROVIDERS: Visit Provider Registered Nurse
DX: Z00.00 Encounter for general adult medical examination without abnormal findings (principal); I10 Essential (primary) hypertension
CPT/HCPCS: 36415; 80048; 80076; 82728; 85025